=== PATIENT | female | born 1940 | race Caucasian/White ===

== ENCOUNTER 2020-09-13 08:55 | Outpatient (REF) | payer MEDICARE, SELFPAY ==
[2020-09-13 11:50] LABS: Alanine Aminotransferase 14 U/L (0-31); Albumin Level 3.6 g/dL (3.5-5.0); Alkaline Phosphatase 121 U/L (39-117); Anion Gap 13 (12-20); Aspartate Amino Transferase 18 U/L (5-31); Bilirubin Total 0.6 mg/dL (0.0-1.0); Blood Urea Nitrogen 16 mg/dL (9-16); Calcium 8.6 mg/dL (8.4-10.2); Carbon Dioxide 28 mmol/L (22-29); Chloride 106 mmol/L (96-108); Estimated Glomerular Filt Rate > 60; Glucose Random 87 mg/dL (60-115); Potassium 3.9 mmol/l (3.3-5.1); Sodium 143 mmol/L (135-145); Total Protein 6.3 g/dL (6.5-8.0)
[2020-09-13 12:10] LABS: TSH reflex Free T4 0.05 mIU/mL (0.32-4.0)
[2020-09-13 13:02] LABS: Free T4 (Free Thyroxine) 1.39 ng/dL (0.71-1.85)
== END 2020-09-13 08:56 | disposition home or self-care (01) ==
LOC: HO.HMGCLDS 08:55
PROVIDERS: PCP Internal Medicine; Visit Provider Internal Medicine
DX: Z00.01 Encounter for general adult medical examination with abnormal findings (principal); E03.9 Hypothyroidism, unspecified
CPT/HCPCS: 80053; 84439; 84443

== ENCOUNTER → 2020-10-29 09:32 | Outpatient (REF) | payer MEDICARE, SELFPAY ==
--- NOTE | 2020-10-29 09:30 | CA_ITS ---
Transthoracic Echocardiogram Patient (Last, First, Middle): Carissa Martin A Gender: Female Date of : 1940 Age: 80 Procedure Date: 10/29/2020 Procedure Type: Transthoracic Echocardiogram Location: OP Height: 160.02 cm Weight: 68.49 kg BSA: 1.72 m2 Heart Rate: bpm BP: 118 / 58 mmHg Pairer Odds: Referring MD: Jae Arteaga MD Symptoms: R01.1 CARDAC MURMUR Study Quality: Good ECG Rhythm: Sinus Conclusions: - The left ventricular systolic function is normal. The visually estimated ejection fraction is between 60-65%. - There is moderate aortic valve stenosis. Findings Left Ventricle Normal left ventricular cavity size. There is moderately increased left ventricular wall thickness. The left ventricular systolic function is normal. The visually estimated ejection fraction is between 60-65%. There is no evidence of regional wall motion abnormalities. E/E prime ratio is between 8 and 15 consistent with indeterminate filling pressures. Evidence suggests grade I (mild) diastolic dysfunction. Right Ventricle Normal right ventricular cavity size and systolic function. Atria Both atria are normal in size. Aortic Valve There is mild calcification of the aortic valve. There is moderate aortic valve stenosis. The peak aortic velocity is 3.15 m/s with a calculated peak gradient of 40 mmHg. The mean gradient is 24 mmHg. The aortic valve area is 1.38 cm2. There is trace (trivial) aortic valve regurgitation. Mitral Valve The mitral valve appears normal. There is trace mitral valve regurgitation. There is no mitral valve stenosis. Pulmonic Valve The pulmonic valve was not well visualized. Tricuspid Valve Normal tricuspid valve structure. There is mild tricuspid valve regurgitation. The pulmonary artery systolic pressure is normal. Great Vessels The aortic annulus, sinuses of valsalva, and asc aorta are normal in size. Venous The inferior vena cava was not well visualized. Pericardium/Pleural There is no evidence of pericardial effusion. Prior Study Comparison No significant change compared to prior study dated: 01/09/2020. Measurements 2D Linear Measurements IVSd: 1.22 0.6-0.9/0.6-1.0 cm LVIDd: 3.98 3.9-5.3/4.2-5.9 cm LVIDd Index: 2.31 2.4-3.2/2.2-3.1 cm/m2 LVIDs: 2.51 2.0-3.6 cm LVPWd: 1.21 0.7-1.1 cm Ao Root: 3.00 2.1-3.5 cm LA Diam: 4.00 2.7-3.8/3.0-4.0 cm LAIDs Index: 2.33 1.5-2.3 cm/m2 LV Mass: 208.34 67-162/88-224 g LV Mass Index: 121.13 43-95/49-115 g/m2 LVOT Diam: 2.10 3.0+(-)1.3 cm Mitral Valve MV Pk E: 0.99 MV PK A: 0.83 MV Decel Time: 197.00 E/A: 1.20 E'Lateral: 10.90 E'Medial: 5.80 E/E' Med: 17.10 E/E' Lat: 9.10 PHT: 58.00 MVA PHT: 3.79 Decel [place]: 5.04 Aortic Valve AoV Pk Kun: 3.15 AoV Mn Kun: 2.31 AoV VTI: 0.73 AoV Pk Grad: 40.00 Aov Mn Grad: 24.00 EDELMIRA Cont.VTI: 1.38 LVOT LVOT Pk Kun: 1.15 LVOT Mn Kun: 0.79 LVOT VTI: 0.29 LVOT Pk Grad: 5.00 LVOT Mn Grad: 3.00 LVOT Diam: 2.10 LVOT Area: 3.46 Diastolic Function MV Pk E: 0.99 MV Pk A: 0.83 E/A: 1.20 E'Medial: 5.80 E/E' Med: 17.10 E' Laterial: 10.90 E/E' Lat: 9.10 Tricuspid Valve TR Pk Kun: 2.65 TR Pk Grad: 28.00 RA Press: 3.00 RVSP: 31.00 Great Vessels Aorta Ao Root-2D: 3.00 2.0-3.7 cm Ao Asc: 3.10 2.1-3.4 cm Pulmonary Valve PV Pk Kun: 1.41 Peak PV Grad: 8.00 Updated in Other Vendor System with Status of Final Manohar Lawler MD electronically signed on 10/31/2020 9:54:33 AM with status of Final
== END ==
LOC: HO.CARD 09:32
PROVIDERS: PCP Internal Medicine; Visit Provider Internal Medicine
DX: R01.1 Cardiac murmur, unspecified (principal)
CPT/HCPCS: 93306

== ENCOUNTER 2020-12-07 09:35 | Outpatient (REF) | payer MEDICARE, SELFPAY ==
[2020-12-07 11:24] LABS: MANUAL DIFF FLAG NO
[2020-12-07 11:46] LABS: Basophils Absolute Auto 0.1 X10*3/uL (0.0-0.2); Basophils Percent Auto 1.1 % (0-2); Eosinophils Absolute Auto 1.4 X10*3/uL (0.0-0.4); Eosinophils Percent Auto 16.9 % (0-4); Hematocrit 40.3 % (37-47); Hemoglobin 12.7 g/dl (12.0-16.0); Imm Gran Abs Auto 0.03 X10*3/uL (0.00-0.03); Imm Gran Pct Auto 0.4 % (0.0-0.4); Lymphocytes Absolute Auto 2.2 X10*3/uL (1.2-4.9); Mean Corpuscular HGB Conc 31.5 g/dl (31.0-35.0); Mean Corpuscular Hemoglobin 30.5 pg (27.0-33.0); Mean Corpuscular Volume 96.9 fL (80-98); Mean Platelet Volume 11.4 fL (9.4-12.3); Monocytes Absolute Auto 0.8 X10*3/uL (0.1-1.2); Monocytes Percent Auto 9.3 % (2-11); Neutrophils Percent Auto 46.3 % (45-73); Platelet Count 254 X10*3/uL (160-400); Red Blood Count 4.16 X10*6/uL (4.20-5.50); Red Cell Distribution Width 14.7 % (11.0-16.0); White Blood Count 8.5 X10*3/uL (4.8-10.8)
[2020-12-07 12:06] LABS: Anion Gap 13 (12-20); Blood Urea Nitrogen 18 mg/dL (9-16); Calcium 8.5 mg/dL (8.4-10.2); Carbon Dioxide 26 mmol/L (22-29); Chloride 107 mmol/L (96-108); Estimated Glomerular Filt Rate > 60; Glucose Random 90 mg/dL (60-115); Potassium 4.4 mmol/l (3.3-5.1); Sodium 142 mmol/L (135-145)
[2020-12-07 12:10] LABS: TSH reflex Free T4 1.17 mIU/mL (0.32-4.0)
== END 2020-12-07 09:36 | disposition home or self-care (01) ==
LOC: HO.HMGCLDS 09:35
PROVIDERS: PCP Internal Medicine; Visit Provider Internal Medicine
DX: N32.9 Bladder disorder, unspecified (principal); E78.9 Disorder of lipoprotein metabolism, unspecified; R10.13 Epigastric pain; F41.1 Generalized anxiety disorder; F33.2 Major depressive disorder, recurrent severe without psychotic features; E03.8 Other specified hypothyroidism
CPT/HCPCS: 36415; 80048; 84443; 85025

== ENCOUNTER 2021-03-25 08:33 | Outpatient (REF) | payer MEDICARE, SELFPAY ==
[2021-03-25 11:32] LABS: MANUAL DIFF FLAG NO
[2021-03-25 11:59] LABS: Basophils Absolute Auto 0.1 X10*3/uL (0.0-0.2); Eosinophils Absolute Auto 1.1 X10*3/uL (0.0-0.4); Eosinophils Percent Auto 13.8 % (0-4); Hematocrit 39.8 % (37-47); Hemoglobin 12.6 g/dl (12.0-16.0); Imm Gran Abs Auto 0.01 X10*3/uL (0.00-0.03); Imm Gran Pct Auto 0.1 % (0.0-0.4); Lymphocytes Absolute Auto 2.2 X10*3/uL (1.2-4.9); Lymphocytes Percent Auto 26.4 % (20-40); Mean Corpuscular HGB Conc 31.7 g/dl (31.0-35.0); Mean Platelet Volume 11.6 fL (9.4-12.3); Monocytes Absolute Auto 0.9 X10*3/uL (0.1-1.2); Monocytes Percent Auto 11.2 % (2-11); Neutrophils Absolute Auto 3.9 X10*3/uL (2.0-8.3); Neutrophils Percent Auto 47.5 % (45-73); Platelet Count 263 X10*3/uL (160-400); Red Blood Count 4.06 X10*6/uL (4.20-5.50); White Blood Count 8.3 X10*3/uL (4.8-10.8)
[2021-03-25 12:11] LABS: TSH reflex Free T4 0.08 uIU/mL (0.32-4.0)
[2021-03-25 12:14] LABS: Alanine Aminotransferase 11 U/L (0-31); Albumin Level 3.7 g/dL (3.5-5.0); Alkaline Phosphatase 128 U/L (39-117); Anion Gap 14 (12-20); Aspartate Amino Transferase 16 U/L (5-31); Bilirubin Total 0.5 mg/dL (0.0-1.0); Blood Urea Nitrogen 17 mg/dL (9-16); Calcium 9.2 mg/dL (8.4-10.2); Carbon Dioxide 27 mmol/L (22-29); Chloride 108 mmol/L (96-108); Cholesterol 133 mg/dL; Estimated Glomerular Filt Rate > 60; Glucose Fasting 93 mg/dL (60-99); HDL Cholesterol 34 mg/dL; LDL Cholesterol Calculated 73 mg/dl; Potassium 4.8 mmol/L (3.3-5.1); Sodium 144 mmol/L (135-145); Total Protein 6.3 g/dL (6.5-8.0); Triglycerides 131 mg/dL
[2021-03-25 12:57] LABS: Free T4 (Free Thyroxine) 1.29 ng/dL (0.71-1.85)
== END 2021-03-25 08:34 | disposition home or self-care (01) ==
LOC: HO.HMGCLDS 08:33
PROVIDERS: PCP Internal Medicine; Visit Provider Internal Medicine
DX: R10.13 Epigastric pain (principal); E03.9 Hypothyroidism, unspecified; N32.9 Bladder disorder, unspecified; E78.9 Disorder of lipoprotein metabolism, unspecified
CPT/HCPCS: 36415; 80053; 80061; 84439; 84443; 85025

== ENCOUNTER 2021-07-08 08:10 | Outpatient (REF) | payer MEDICARE, SELFPAY ==
[2021-07-08 12:20] LABS: TSH reflex Free T4 0.47 uIU/mL (0.32-4.0)
== END 2021-07-08 08:11 | disposition home or self-care (01) ==
LOC: HO.HMGCLDS 08:10
PROVIDERS: PCP Internal Medicine; Visit Provider Internal Medicine
DX: R94.6 Abnormal results of thyroid function studies (principal)
CPT/HCPCS: 36415; 84443

== ENCOUNTER → 2021-08-18 13:58 | Outpatient (BNVA) | payer MEDICARE, SELFPAY | PROVIDERS: PCP Internal Medicine; Referring Provider Internal Medicine; Visit Provider Internal Medicine | DX: I35.0 Nonrheumatic aortic (valve) stenosis (principal); Z86.73 Personal history of transient ischemic attack (TIA), and cerebral infarction without residual deficits | CPT/HCPCS: 93005; 99202 ==

== ENCOUNTER 2021-08-22 10:05 | Outpatient (REF) | payer MEDICARE, SELFPAY ==
--- NOTE | ~2021-08-22 | US_ITS ---
EXAMINATION: US ABDOMEN COMPLETE CLINICAL INFORMATION: Elevated LFTs. COMPARISON: None TECHNIQUE: Real-time imaging of the abdominal viscera. FINDINGS: PANCREAS: The head of the pancreas is normal. The body and tail are not well visualized ABDOMINAL AORTA: The abdominal aorta is normal in caliber. There is evidence of atherosclerotic disease. INFERIOR VENA CAVA: Visualized portions are normal. LIVER: Normal. The liver is normal in size. The liver contour is normal. Parenchymal echogenicity is normal. No focal hepatic lesion. There is no intrahepatic biliary duct dilatation seen. GALLBLADDER: Surgically absent. COMMON BILE DUCT: Normal in caliber measuring 0.6 cm in diameter. RIGHT KIDNEY: Normal. No hydronephrosis. No renal calculi or focal parenchymal lesions. The kidney measures 9.1 cm in maximum dimension. LEFT KIDNEY: Normal No hydronephrosis. No renal calculi or focal parenchymal lesions. The kidney measures 9.8 cm in maximum dimension. SPLEEN: Normal. The spleen measures 8.6 cm in maximum dimension. FREE FLUID: None. US/US abdomen complete IMPRESSION: Visualization of the pancreas otherwise unremarkable exam.
== END 2021-08-22 10:06 | disposition home or self-care (01) ==
LOC: HO.HMGCX 10:05
PROVIDERS: PCP Internal Medicine; Visit Provider Internal Medicine
DX: R79.89 Other specified abnormal findings of blood chemistry (principal)
CPT/HCPCS: 76700

== ENCOUNTER → 2021-09-28 12:52 | Outpatient (REF) | payer MEDICARE, SELFPAY ==
--- NOTE | 2021-09-28 12:55 | CA_ITS ---
Transthoracic Echocardiogram Patient (Last, First, Middle): Carissa Martin A Gender: Female Date of : 1940 Age: 81 Procedure Date: 09/28/2021 Procedure Type: Transthoracic Echocardiogram Location: OP Height: 160.02 cm Weight: 60.78 kg BSA: 1.63 m2 Heart Rate: bpm BP: 120 / 70 mmHg Sheet Rock Finisher: YR/CP Referring MD: Manohar Lawler MD Symptoms: I35.0 - Nonrheumatic aortic (valve) stenosis Study Quality: Good ECG Rhythm: Sinus Conclusions: - The left ventricular systolic function is normal. The visually estimated ejection fraction is between 60-65%. - There is moderate aortic valve stenosis. - There is mild mitral annular calcification. - Small plaque is seen in the sino tubular ridge. Findings Left Ventricle Normal left ventricular cavity size. The left ventricular systolic function is normal. The visually estimated ejection fraction is between 60-65%. There is no evidence of regional wall motion abnormalities. Diastolic function is normal for age. There is mild septal and mild basal asymmetric hypertrophy. Right Ventricle Normal right ventricular cavity size and systolic function. Atria The left atrium is normal in size. The right atrium is normal in size. Aortic Valve There is moderate calcification of the aortic valve. There is moderate aortic valve stenosis. The peak aortic velocity is 3.85 m/s with a calculated peak gradient of 59 mmHg. The mean gradient is 35 mmHg. The aortic valve area is 1.06 cm2. There is mild aortic valve regurgitation. Mitral Valve The mitral valve appears normal. There is mild mitral annular calcification. There is trace mitral valve regurgitation. There is no mitral valve stenosis. Pulmonic Valve The pulmonic valve was not well visualized. Tricuspid Valve Normal tricuspid valve structure. There is mild tricuspid valve regurgitation. The pulmonary artery systolic pressure is normal. Great Vessels The asc aorta is normal in size. Small plaque is seen in the sino tubular ridge. Venous The inferior vena cava is normal in size and collapses greater than 50% with inspiration. Pericardium/Pleural There is no evidence of pericardial effusion. Prior Study Comparison Changes noted compared to prior study dated: 10/29/2020. Progression of aortic valve stenosis, but still in moderate range. Measurements 2D Linear Measurements IVSd: 1.05 0.6-0.9/0.6-1.0 cm LVIDd: 3.56 3.9-5.3/4.2-5.9 cm LVIDd Index: 2.18 2.4-3.2/2.2-3.1 cm/m2 LVIDs: 2.04 2.0-3.6 cm LVPWd: 0.63 0.7-1.1 cm Ao Root: 3.30 2.1-3.5 cm LA Diam: 3.50 2.7-3.8/3.0-4.0 cm LAIDs Index: 2.15 1.5-2.3 cm/m2 LV Mass: 102.37 67-162/88-224 g LV Mass Index: 62.80 43-95/49-115 g/m2 LVOT Diam: 2.10 3.0+(-)1.3 cm 2D Systolic Function EF 4C: 60.40 >55% EF 2C: 58.10 >55% EF BiP: 57.30 >55% Mitral Valve MV Pk E: 0.88 MV PK A: 0.59 MV Decel Time: 234.00 E/A: 1.50 E'Lateral: 6.64 E'Medial: 5.66 E/E' Med: 15.60 E/E' Lat: 13.30 PHT: 69.00 MVA PHT: 3.19 Decel [place]: 3.77 Aortic Valve AoV Pk Kun: 3.85 AoV Mn Kun: 2.81 AoV VTI: 0.96 AoV Pk Grad: 59.00 Aov Mn Grad: 35.00 EDELMIRA Cont.VTI: 1.06 AI Pk Kun: 4.06 AI [place]: 2.32 LVOT LVOT Pk Kun: 1.01 LVOT Mn Kun: 0.70 LVOT VTI: 0.29 LVOT Pk Grad: 4.00 LVOT Mn Grad: 2.00 LVOT Diam: 2.10 LVOT Area: 3.46 Diastolic Function MV Pk E: 0.88 MV Pk A: 0.59 E/A: 1.50 E'Medial: 5.66 E/E' Med: 15.60 E' Laterial: 6.64 E/E' Lat: 13.30 Right Ventricle TAPSE (mm): 1.72 TVS' Kun: 15.20 Tricuspid Valve TR Pk Kun: 2.69 TR Pk Grad: 29.00 RA Press: 3.00 RVSP: 32.00 Great Vessels Aorta Ao Root-2D: 3.30 2.0-3.7 cm Ao Asc: 3.10 2.1-3.4 cm Ao Arch: 2.50 Updated in Other Vendor System with Status of Final Manohar Lawler MD electronically signed on 09/29/2021 1:10:52 PM with status of Final
== END ==
LOC: HO.CARD 12:52
PROVIDERS: Visit Provider Internal Medicine
DX: I35.0 Nonrheumatic aortic (valve) stenosis (principal)
CPT/HCPCS: 93306

== ENCOUNTER → 2021-09-29 13:40 | Outpatient (BNVA) | payer MEDICARE, SELFPAY | PROVIDERS: PCP Internal Medicine; Referring Provider Internal Medicine; Visit Provider Internal Medicine | DX: I35.0 Nonrheumatic aortic (valve) stenosis (principal); I63.9 Cerebral infarction, unspecified | CPT/HCPCS: 99212 ==

== ENCOUNTER 2021-11-23 08:36 | Outpatient (REF) | payer MEDICARE, SELFPAY ==
--- NOTE | ~2021-11-23 | XR_ITS ---
EXAMINATION: XR SACRUM AND COCCYX CLINICAL INFORMATION: Sacral pain COMPARISON: None TECHNIQUE: 3 views of the sacrum and coccyx FINDINGS: Patient is status post bilateral pelvic surgery. There is significant degenerative disc disease seen L4-S1 bilaterally. No acute fracture of the sacrum or coccyx is identified. There is osteopenia visualized bones. Sacroiliac joints appear unremarkable. XR/XR sacrum coccyx min 2V IMPRESSION: Degenerative disc disease lower lumbar spine. Osteopenia without definite sacrococcygeal fracture or destructive lesion identified.
[2021-11-23 11:50] LABS: Alanine Aminotransferase 21 U/L (0-31); Albumin Level 3.8 g/dL (3.5-5.0); Alkaline Phosphatase 111 U/L (39-117); Anion Gap 11 (12-20); Aspartate Amino Transferase 23 U/L (5-31); Bilirubin Total 0.5 mg/dL (0.0-1.0); Blood Urea Nitrogen 16 mg/dL (9-16); Calcium 9.3 mg/dL (8.4-10.2); Carbon Dioxide 30 mmol/L (22-29); Chloride 108 mmol/L (96-108); Cholesterol 143 mg/dL; Estimated Glomerular Filt Rate 57; Glucose Fasting 81 mg/dL (60-99); HDL Cholesterol 48 mg/dL; LDL Cholesterol Calculated 75 mg/dl; Potassium 4.6 mmol/L (3.3-5.1); Sodium 144 mmol/L (135-145); Total Protein 6.5 g/dL (6.5-8.0); Triglycerides 100 mg/dL
[2021-11-23 12:12] LABS: TSH reflex Free T4 12.66 uIU/mL (0.32-4.0)
[2021-11-23 12:31] LABS: Vitamin B12 446 pg/mL (200-900)
[2021-11-23 12:46] LABS: Free T4 (Free Thyroxine) 0.89 ng/dL (0.71-1.85)
== END 2021-11-23 08:37 | disposition home or self-care (01) ==
LOC: HO.HMGCLDS 08:36
PROVIDERS: PCP Internal Medicine; Visit Provider Internal Medicine
DX: R10.13 Epigastric pain (principal); E03.8 Other specified hypothyroidism; E78.9 Disorder of lipoprotein metabolism, unspecified; F33.2 Major depressive disorder, recurrent severe without psychotic features; F41.1 Generalized anxiety disorder; N32.9 Bladder disorder, unspecified; M53.3 Sacrococcygeal disorders, not elsewhere classified
CPT/HCPCS: 36415; 72220; 80053; 80061; 82607; 84439; 84443

== ENCOUNTER 2021-12-30 13:01 | Outpatient (REF) | payer MEDICARE, SELFPAY ==
--- NOTE | ~2021-12-30 | XR_ITS ---
EXAMINATION: XR ANKLE, LEFT CLINICAL INFORMATION: Ankle sprain COMPARISON: None TECHNIQUE: AP, lateral, and mortise views of the left ankle. FINDINGS: The bones and soft tissues are normal. No fracture. Alignment is anatomic. Joint spaces are maintained. No joint effusion. The talar dome and ankle mortise are intact. XR/XR ankle LT min 3V IMPRESSION: No evidence of acute fracture or subluxation of the left ankle.
== END 2021-12-30 13:02 | disposition home or self-care (01) ==
LOC: HO.HMGCLDS 13:01
PROVIDERS: Visit Provider Internal Medicine
DX: S93.402A Sprain of unspecified ligament of left ankle, initial encounter (principal); X58.XXXA Exposure to other specified factors, initial encounter; Y93.9 Activity, unspecified; Y92.9 Unspecified place or not applicable; Y99.8 Other external cause status
CPT/HCPCS: 73610

== ENCOUNTER 2022-01-02 10:01 | Outpatient (REF) | payer MEDICARE, SELFPAY ==
[2022-01-02 12:22] LABS: TSH reflex Free T4 0.31 uIU/mL (0.32-4.0)
[2022-01-02 13:12] LABS: Free T4 (Free Thyroxine) 0.98 ng/dL (0.71-1.85)
== END 2022-01-02 10:02 | disposition home or self-care (01) ==
LOC: HO.HMGCLDS 10:01
PROVIDERS: PCP Internal Medicine; Visit Provider Internal Medicine
DX: R94.6 Abnormal results of thyroid function studies (principal)
CPT/HCPCS: 36415; 84439; 84443

== ENCOUNTER 2022-02-23 08:42 | Outpatient (REF) | payer MEDICARE, SELFPAY ==
[2022-02-23 11:35] LABS: Appearance Urine CLEAR; Color Urine YELLOW; Glucose Urine UA NEG (NEG); Leukocyte Esterase Urine TRACE (NEG); Nitrite Urine NEG (NEG); UACC Culture Trigger YES; Urine Blood NEG (NEG); Urine Ketones NEG (NEG); Urine Protein NEG (NEG-TRACE)
[2022-02-23 11:57] LABS: Calcium Oxalate Crystals Urine 1+ /LPF
[2022-02-23 11:58] LABS: Mucus Urine 1+ /LPF; RBC Urine 0 /HPF (0); Squamous Epithelial Cell Urine 1+ /LPF
== END 2022-02-23 08:43 | disposition home or self-care (01) ==
LOC: HO.HMGCLNP 08:42
PROVIDERS: Visit Provider Internal Medicine
DX: M54.9 Dorsalgia, unspecified (principal)
CPT/HCPCS: 81001; 87086

== ENCOUNTER 2022-03-17 08:55 | Outpatient (REF) | payer MEDICARE, SELFPAY ==
[2022-03-17 11:16] LABS: Appearance Urine CLEAR; Color Urine YELLOW; Glucose Urine UA NEG (NEG); Leukocyte Esterase Urine NEG (NEG); Nitrite Urine NEG (NEG); Specific Gravity - Urine 1.015 (1.005-1.025); Urine Blood NEG (NEG); Urine Ketones NEG (NEG); Urine Protein NEG (NEG-TRACE)
[2022-03-17 12:11] LABS: TSH reflex Free T4 0.69 uIU/mL (0.32-4.0)
== END 2022-03-17 08:56 | disposition home or self-care (01) ==
LOC: HO.HMGCLDS 08:55
PROVIDERS: PCP Internal Medicine; Visit Provider Internal Medicine
DX: M54.9 Dorsalgia, unspecified (principal); E03.9 Hypothyroidism, unspecified
CPT/HCPCS: 36415; 81003; 84443

== ENCOUNTER 2022-03-21 11:29 | Outpatient (REF) | payer MEDICARE, SELFPAY ==
[2022-03-21 13:43] LABS: MANUAL DIFF FLAG NO
[2022-03-21 13:49] LABS: Basophils Absolute Auto 0.1 X10*3/uL (0.0-0.2); Eosinophils Absolute Auto 0.7 X10*3/uL (0.0-0.4); Eosinophils Percent Auto 10.1 % (0-4); Hematocrit 37.7 % (37.0-47.0); Hemoglobin 11.9 g/dl (12.0-16.0); Imm Gran Abs Auto 0.02 X10*3/uL (0.00-0.03); Imm Gran Pct Auto 0.3 % (0.0-0.4); Lymphocytes Absolute Auto 1.8 X10*3/uL (1.2-4.9); Lymphocytes Percent Auto 25.5 % (20-40); Mean Corpuscular HGB Conc 31.6 g/dl (31.0-35.0); Mean Corpuscular Hemoglobin 30.7 pg (27.0-33.0); Mean Corpuscular Volume 97.2 fL (80.0-98.0); Mean Platelet Volume 11.4 fL (9.4-12.3); Monocytes Absolute Auto 0.6 X10*3/uL (0.1-1.2); Monocytes Percent Auto 8.7 % (2-11); Neutrophils Absolute Auto 3.9 x10*3/uL (2.0-8.3); Neutrophils Percent Auto 54.4 % (45-73); Platelet Count 236 X10*3/uL (160-400); Red Blood Count 3.88 X10*6/uL (4.20-5.50); Red Cell Distribution Width 14.3 % (11.0-16.0); White Blood Count 7.1 X10*3/uL (4.8-10.8)
[2022-03-21 13:51] LABS: Appearance Urine HAZY; Color Urine YELLOW; Glucose Urine UA NEG (NEG); Leukocyte Esterase Urine TRACE (NEG); Nitrite Urine NEG (NEG); PH 5.5 (5.0-8.0); UACC Culture Trigger NO; Urine Blood 3+ (NEG); Urine Ketones NEG (NEG); Urine Protein NEG (NEG-TRACE)
[2022-03-21 14:04] LABS: Alanine Aminotransferase 18 U/L (0-31); Albumin Level 3.5 g/dL (3.5-5.0); Alkaline Phosphatase 96 U/L (39-117); Anion Gap 9 (12-20); Aspartate Amino Transferase 24 U/L (5-31); Bilirubin Total 0.5 mg/dL (0.0-1.0); Blood Urea Nitrogen 15 mg/dL (9-16); Calcium 9.1 mg/dL (8.4-10.2); Carbon Dioxide 29 mmol/L (22-29); Chloride 107 mmol/L (96-108); Estimated Glomerular Filt Rate > 60; Glucose Random 94 mg/dL (60-115); Potassium 3.9 mmol/L (3.3-5.1); Sodium 141 mmol/L (135-145)
[2022-03-21 14:21] LABS: TSH reflex Free T4 0.49 uIU/mL (0.32-4.0)
[2022-03-21 14:23] LABS: Squamous Epithelial Cell Urine 2+ /LPF; WBC Urine 0-2 /HPF (0-4)
== END 2022-03-21 11:30 | disposition home or self-care (01) ==
LOC: HO.HMGCLDS 11:29
PROVIDERS: Visit Provider Internal Medicine
DX: R26.81 Unsteadiness on feet (principal); R42 Dizziness and giddiness; E03.9 Hypothyroidism, unspecified; Z91.81 History of falling
CPT/HCPCS: 36415; 80053; 81001; 84443; 85025

== ENCOUNTER → 2022-03-29 08:24 | Outpatient (REF) | payer MEDICARE, SELFPAY ==
--- NOTE | 2022-03-29 08:29 | CA_ITS ---
Transthoracic Echocardiogram Patient (Last, First, Middle): Carissa Martin A Gender: Female Date of : 1940 Age: 82 Procedure Date: 03/29/2022 Procedure Type: Transthoracic Echocardiogram Location: OP Height: 157.48 cm Weight: 56.7 kg BSA: 1.57 m2 Heart Rate: bpm BP: 122 / 70 mmHg Aerospace Technician: Referring MD: Manohar Lawler MD Customer Support Professional: Gerald Molina MD Symptoms: I35.0 - Nonrheumatic aortic (valve) stenosis Study Quality: Fair ECG Rhythm: Sinus Conclusions: - 1. Normal LV systolic function with pseudonormal filling pattern 2. Moderate aortic stenosis 3. Mild left atrial enlargement 4. Normal RV systolic pressure 5. No pericardial effusion Findings Left Ventricle Normal left ventricular size, thickness, and systolic function. The visually estimated ejection fraction is between 60-65%. Spectral Doppler is indicative of a pseudonormal filling pattern. E/E prime ratio is between 8 and 15 consistent with indeterminate filling pressures. Right Ventricle Normal right ventricular cavity size and systolic function. Atria The left atrium is mildly dilated. There is no evidence of interatrial shunt. The right atrium is normal in size. Aortic Valve There is moderate calcification of the aortic valve. There is mild thickening of the aortic valve. There is moderate aortic valve stenosis. The peak aortic gradient is 52 mmHg.The mean gradient is 29 mmHg. The aortic valve area is 1.42 cm2. There is mild aortic valve regurgitation. Mitral Valve There is mild anterior and posterior mitral leaflet thickening. There is trace mitral valve regurgitation. There is no mitral valve stenosis. Pulmonic Valve The pulmonic valve was not well visualized. Tricuspid Valve Likely normal tricuspid valve structure and function. There is mild tricuspid valve regurgitation. The right ventricular systolic pressure is normal. The right ventricular systolic pressure is 36 mmHg. Normal right atrial pressure. There is no evidence of pulmonary hypertension. Great Vessels All visible segments of the aorta are normal in size. The pulmonary artery was not well visualized. Venous The inferior vena cava is normal in size and collapses greater than 50% with inspiration. Pericardium/Pleural There is no evidence of pericardial effusion. Prior Study Comparison No significant change compared to prior study dated: 09/28/2022. Measurements 2D Linear Measurements IVSd: 1.03 0.6-0.9/0.6-1.0 cm LVIDd: 4.19 3.9-5.3/4.2-5.9 cm LVIDd Index: 2.67 2.4-3.2/2.2-3.1 cm/m2 LVIDs: 2.47 2.0-3.6 cm LVPWd: 1.03 0.7-1.1 cm Ao Root: 2.90 2.1-3.5 cm LA Diam: 4.10 2.7-3.8/3.0-4.0 cm LAIDs Index: 2.61 1.5-2.3 cm/m2 LV Mass: 177.40 67-162/88-224 g LV Mass Index: 113.00 43-95/49-115 g/m2 LVOT Diam: 2.20 3.0+(-)1.3 cm Mitral Valve MV Pk E: 0.97 MV PK A: 0.62 MV Decel Time: 260.00 E/A: 1.60 E'Lateral: 7.72 E'Medial: 6.42 E/E' Med: 15.20 E/E' Lat: 12.60 PHT: 76.00 MVA PHT: 2.89 Decel [place]: 3.74 Aortic Valve AoV Pk Kun: 3.60 AoV Mn Kun: 2.55 AoV VTI: 0.89 AoV Pk Grad: 52.00 Aov Mn Grad: 29.00 EDELMIRA Cont.VTI: 1.42 AI Pk Kun: 4.33 AI [place]: 3.50 LVOT LVOT Pk Kun: 1.29 LVOT Mn Kun: 0.94 LVOT VTI: 0.33 LVOT Pk Grad: 7.00 LVOT Mn Grad: 4.00 LVOT Diam: 2.20 LVOT Area: 3.80 Diastolic Function MV Pk E: 0.97 MV Pk A: 0.62 E/A: 1.60 E'Medial: 6.42 E/E' Med: 15.20 E' Laterial: 7.72 E/E' Lat: 12.60 Tricuspid Valve TR Pk Kun: 2.88 TR Pk Grad: 33.00 RA Press: 3.00 RVSP: 36.00 Great Vessels Aorta Ao Root-2D: 2.90 2.0-3.7 cm Ao Asc: 3.10 2.1-3.4 cm Pulmonary Valve PV Pk Kun: 0.71 Peak PV Grad: 2.00 Updated in Other Vendor System with Status of Final Gerald Molina MD electronically signed on 03/30/2022 3:18:24 PM with status of Final
== END ==
LOC: HO.CARD 08:24
PROVIDERS: PCP Internal Medicine; Visit Provider Internal Medicine
DX: I35.0 Nonrheumatic aortic (valve) stenosis (principal)
CPT/HCPCS: 93306

== ENCOUNTER → 2022-04-03 14:55 | Outpatient (BNVA) | payer MEDICARE, SELFPAY | PROVIDERS: PCP Internal Medicine; Referring Provider Internal Medicine; Visit Provider Internal Medicine | DX: I35.0 Nonrheumatic aortic (valve) stenosis (principal); I63.9 Cerebral infarction, unspecified | CPT/HCPCS: 99212 ==

== ENCOUNTER 2022-06-01 14:27 | Outpatient (REF) | payer MEDICARE, SELFPAY ==
--- NOTE | ~2022-06-01 | XR_ITS ---
EXAMINATION: XR FOOT, RIGHT CLINICAL INFORMATION: Pain COMPARISON: None TECHNIQUE: AP, lateral, and oblique views of the right foot. FINDINGS: Acute intra-articular obliquely oriented avulsion fracture of the base of the fifth metatarsal. Hallux valgus deformity with moderate degenerative changes of the first metatarsophalangeal joint. Plantar calcaneal spurring. Soft tissues are unremarkable. XR/XR foot RT min 3V IMPRESSION: * Acute intra-articular obliquely oriented avulsion fracture of the base of the fifth metatarsal. * Degenerative changes of the foot as detailed above with hallux valgus deformity and moderate degenerative changes of the first metatarsophalangeal joint.
== END 2022-06-01 14:28 | disposition home or self-care (01) ==
LOC: HO.HMGCX 14:27
PROVIDERS: PCP Internal Medicine
DX: M79.671 Pain in right foot (principal)
CPT/HCPCS: 73630

== ENCOUNTER → 2022-06-08 10:26 | Outpatient (BNVA) | payer MEDICARE, SELFPAY | PROVIDERS: PCP Internal Medicine; Visit Provider Physician Assistant | DX: S92.351A Displaced fracture of fifth metatarsal bone, right foot, initial encounter for closed fracture (principal) | CPT/HCPCS: 99202 ==

== ENCOUNTER 2022-07-05 15:18 | Outpatient (REF) | payer MEDICARE, SELFPAY ==
--- NOTE | ~2022-07-05 | XR_ITS ---
EXAMINATION: XR FOOT, RIGHT CLINICAL INFORMATION: Displaced fracture fifth metatarsal bone COMPARISON: None TECHNIQUE: AP, lateral, and oblique views of the right foot. FINDINGS: There is moderate hallux valgus deformity first MTP joint with mild subluxation. There is minimally displaced fracture base of fifth metatarsal. It was nondisplaced on the previous exam. No callus formation seen. No new fracture seen. The ankle mortise and subtalar joints are normal. There is a small calcaneal heel enthesophyte. XR/XR foot RT min 3V IMPRESSION: Slightly displaced fracture base of fifth metacarpal. There is no callus formation seen. Small calcaneal heel enthesophyte.
== END 2022-07-05 15:19 | disposition home or self-care (01) ==
LOC: HO.HOSX 15:18
PROVIDERS: Visit Provider Physician Assistant
DX: S92.351A Displaced fracture of fifth metatarsal bone, right foot, initial encounter for closed fracture (principal)
CPT/HCPCS: 73630

== ENCOUNTER → 2022-08-16 13:47 | Outpatient (REF) | payer MEDICARE, SELFPAY ==
--- NOTE | 2022-08-16 13:53 | CA_ITS ---
Transthoracic Echocardiogram Patient (Last, First, Middle): Carissa Martin A Gender: Female Date of : 1940 Age: 82 Procedure Date: 08/16/2022 Procedure Type: Transthoracic Echocardiogram Location: OP Height: 160.02 cm Weight: 56.7 kg BSA: 1.58 m2 Heart Rate: 68 bpm BP: 110 / 70 mmHg Supervisor Decorating: TO Referring MD: Manohar Lawler MD Elastic Attacher Zigzag: Gerald Molina MD Symptoms: I35.0 - Nonrheumatic aortic (valve) stenosis Study Quality: Fair ECG Rhythm: Sinus Conclusions: - 1. Normal LV systolic function with grade 2 diastolic dysfunction 2. Severe aortic stenosis, paradoxical low-flow aortic stenosis with mean gradient of 33 mmHg and dimensionless index of 0.22 3. Moderate left atrial enlargement 4. Normal RV systolic pressure 5. No gross pericardial effusion Findings Left Ventricle Normal left ventricular size, thickness, and systolic function. The visually estimated ejection fraction is between 60-65%. Spectral Doppler is indicative of a pseudonormal filling pattern. Elevated left atrial and left ventricular end-diastolic pressures. E/E prime ratio is >15, consistent with elevated filling pressures. Evidence suggests grade II (moderate) diastolic dysfunction. Right Ventricle Normal right ventricular cavity size and systolic function. Atria The left atrium is moderately dilated. There is no evidence of interatrial shunt. The right atrium is likely dilated. Aortic Valve There is moderate calcification of the aortic valve. There is mild thickening of the aortic valve. There is severe aortic valve stenosis. The peak aortic gradient is 58 mmHg.The mean gradient is 31 mmHg. The aortic valve area is 0.70 cm2. There is mild aortic valve regurgitation. Calculated dimensionless index is 0.22 consistent with severe aortic stenosis. Overall findings consistent with paradoxical low-flow aortic stenosis Mitral Valve There is mild anterior and posterior mitral leaflet thickening. There is mild mitral valve regurgitation. Pulmonic Valve The pulmonic valve was not well visualized. Tricuspid Valve Likely normal tricuspid valve structure and function. There is mild tricuspid valve regurgitation. The right ventricular systolic pressure is normal. The right ventricular systolic pressure is 31 mmHg. There is no evidence of pulmonary hypertension. Great Vessels All visible segments of the aorta are normal in size. The pulmonary artery was not well visualized. Venous The inferior vena cava is normal in size and collapses greater than 50% with inspiration. Pericardium/Pleural There is no evidence of pericardial effusion. Prior Study Comparison Changes noted compared to prior study dated: 03/29/2022. aortic stenosis is severe Measurements 2D Linear Measurements IVSd: 0.96 0.6-0.9/0.6-1.0 cm LVIDd: 4.37 3.9-5.3/4.2-5.9 cm LVIDd Index: 2.77 2.4-3.2/2.2-3.1 cm/m2 LVIDs: 2.58 2.0-3.6 cm LVPWd: 0.89 0.7-1.1 cm LA Diam: 3.70 2.7-3.8/3.0-4.0 cm LAIDs Index: 2.34 1.5-2.3 cm/m2 LV Mass: 163.72 67-162/88-224 g LV Mass Index: 103.62 43-95/49-115 g/m2 LVOT Diam: 2.00 3.0+(-)1.3 cm 2D Systolic Function EF 4C: 61.40 >55% EF 2C: 68.80 >55% EF BiP: 66.50 >55% Mitral Valve MV Pk E: 0.94 MV PK A: 0.37 MV Decel Time: 238.00 E/A: 2.50 E'Lateral: 8.59 E'Medial: 4.79 E/E' Med: 19.60 E/E' Lat: 10.90 PHT: 70.00 MVA PHT: 3.14 Decel [place]: 3.94 Aortic Valve AoV Pk Kun: 3.80 AoV Mn Kun: 2.58 AoV VTI: 0.98 AoV Pk Grad: 58.00 Aov Mn Grad: 31.00 EDELMIRA Cont.VTI: 0.70 AI Pk Kun: 3.89 AI [place]: 2.46 LVOT LVOT Pk Kun: 0.74 LVOT Mn Kun: 0.51 LVOT VTI: 0.22 LVOT Pk Grad: 2.00 LVOT Mn Grad: 1.00 LVOT Diam: 2.00 LVOT Area: 3.14 Diastolic Function MV Pk E: 0.94 MV Pk A: 0.37 E/A: 2.50 E'Medial: 4.79 E/E' Med: 19.60 E' Laterial: 8.59 E/E' Lat: 10.90 Right Ventricle TAPSE (mm): 22.20 TVS' Kun: 11.20 Tricuspid Valve TR Pk Kun: 2.64 TR Pk Grad: 28.00 RA Press: 3.00 RVSP: 31.00 Great Vessels Aorta Sinus of Valsalva: 3.18 2.0-3.[address] [place]: 2.34 1.7-3.4 cm Ao Asc: 2.90 2.1-3.4 cm Updated in Other Vendor System with Status of Final Gerald Molina MD electronically signed on 08/16/2022 4:23:42 PM with status of Final
== END ==
LOC: HO.CARD 13:47
PROVIDERS: Visit Provider Internal Medicine
DX: I35.0 Nonrheumatic aortic (valve) stenosis (principal)
CPT/HCPCS: 93306

== ENCOUNTER 2022-08-24 11:03 | Outpatient (REF) | payer MEDICARE, SELFPAY ==
--- NOTE | ~2022-08-24 | MM_ITS ---
EXAMINATION: BONE DENSITOMETRY CLINICAL INDICATION: Asymptomatic menopausal state. COMPARISON: Previous BD dated 01/09/2020 and baseline BD dated 05/07/2012. TECHNIQUE: Using a [employer] DXA System (software version: 13.1) manufactured by [employer], dual-energy x-ray absorptiometry was performed of the lumbar spine and left hip. The images are of good technical quality. Summary results are attached. FINDINGS: AP SPINE L1-L3 (excluding L4): The data of L1-L4 has been changed to exclude the L4 vertebral body, because degenerative changes at this level may cause overestimation of lumbar spine density. Current: BMD 1.118 g/cm2, Z-score 1.8, T-score -0.4, normal, 6.2% decrease from previous, 15.5% decrease from baseline (<5% change is not significant). Prior: BMD 1.192 g/cm2. Baseline: BMD 1.323 g/cm2. LEFT FEMUR, NECK: Current: BMD 0.721 g/cm2, Z-score 0.2, T-score -2.3, osteopenia. Prior: BMD 0.782 g/cm2. Baseline: BMD 0.913 g/cm2. LEFT FEMUR, TOTAL: Current: BMD 0.787 g/cm2, Z-score 0.6, T-score -1.7, osteopenia, 12.2% decrease from previous, 25.1% decrease from baseline (<5% change is not significant). Prior: BMD 0.896 g/cm2. Baseline: BMD 1.051 g/cm2. IDENTIFIED RISK FACTORS: Menopause, hysterectomy, bilateral oophorectomy. HISTORY OF FRACTURE: None listed. MEDICATIONS: Calcium/multivitamin. MM/XR DEXA axial skeleton IMPRESSION: 1. DIAGNOSIS: Osteopenia based on the lowest T-score value of -2.3 in the femoral neck applying World Health Organization criteria. 2. 10-YEAR FRACTURE RISK PREDICTION, FRAX: Major osteoporotic fracture (clinical spine, forearm, hip or shoulder) 16.4%. Hip fracture 5.8%. 3. Treatment Recommendations: NOF guidelines recommend consideration for treatment in postmenopausal women and men age 50 and older presenting with the following: -A hip or vertebral (clinical or morphometric) fracture. -T-score less than or equal to -2.5 at the femoral neck or spine after appropriate evaluation to exclude secondary causes. -Low bone mass at the hip or spine and a 10-year fracture probability by FRAX of greater than or equal to 3% for hip fracture or greater than or equal to 20% for major osteoporotic fracture based on the [place] adapted WHO algorithm. 4. Other Recommendations: All treatment decisions require clinical judgment and consideration of individual patient factors, including patient preferences, comorbidities, previous drug use, risk factors not captured in the FRAX model (e.g. frailty, falls, vitamin D deficiency, increased bone turnover, interval significant decline in bone density) and possible under or overestimation of fracture risk by FRAX. Additional medical evaluation for secondary cause of low bone mineral density may be appropriate. FUTURE SCAN RECOMMENDATION: People with diagnosed cases of osteoporosis or at high risk for fracture should have regular bone mineral density tests. For patients eligible for Medicare, routine testing is allowed once every 2 years. The testing frequency can be increased to one year for patients who have rapidly progressing disease, those who are receiving or discontinuing medical therapy to restore bone mass, or have additional risk factors.
== END 2022-08-24 11:04 | disposition home or self-care (01) ==
LOC: HO.MAMMO 11:03
PROVIDERS: Visit Provider Internal Medicine
DX: Z13.820 Encounter for screening for osteoporosis (principal); Z78.0 Asymptomatic menopausal state
CPT/HCPCS: 77080

== ENCOUNTER → 2022-10-09 12:44 | Outpatient (BNVA) | payer MEDICARE, SELFPAY | PROVIDERS: PCP Internal Medicine; Referring Provider Internal Medicine; Visit Provider Internal Medicine | DX: I35.0 Nonrheumatic aortic (valve) stenosis (principal); I63.9 Cerebral infarction, unspecified | CPT/HCPCS: 93005; 99212 ==

== ENCOUNTER 2022-12-08 08:38 | Outpatient (REF) | payer MEDICARE, SELFPAY ==
[2022-12-08 11:23] LABS: MANUAL DIFF FLAG NO
[2022-12-08 11:29] LABS: Basophils Absolute Auto 0.1 X10*3/uL (0.0-0.2); Basophils Percent Auto 1.2 % (0-2); Eosinophils Absolute Auto 1.2 X10*3/uL (0.0-0.4); Hematocrit 37.1 % (37.0-47.0); Hemoglobin 11.8 g/dl (12.0-16.0); Imm Gran Abs Auto 0.02 X10*3/uL (0.00-0.03); Imm Gran Pct Auto 0.3 % (0.0-0.4); Lymphocytes Absolute Auto 2.1 X10*3/uL (1.2-4.9); Lymphocytes Percent Auto 27.8 % (20-40); Mean Corpuscular HGB Conc 31.8 g/dl (31.0-35.0); Mean Corpuscular Hemoglobin 31.1 pg (27.0-33.0); Mean Corpuscular Volume 97.6 fL (80.0-98.0); Mean Platelet Volume 11.1 fL (9.4-12.3); Monocytes Absolute Auto 0.8 X10*3/uL (0.1-1.2); Monocytes Percent Auto 10.2 % (2-11); Neutrophils Absolute Auto 3.3 x10*3/uL (2.0-8.3); Neutrophils Percent Auto 44.5 % (45-73); Platelet Count 222 X10*3/uL (160-400); Red Cell Distribution Width 14.6 % (11.0-16.0); White Blood Count 7.4 X10*3/uL (4.8-10.8)
[2022-12-08 13:00] LABS: Alanine Aminotransferase 17 U/L (0-31); Albumin Level 3.6 g/dL (3.5-5.0); Alkaline Phosphatase 107 U/L (39-117); Anion Gap 12 (12-20); Aspartate Amino Transferase 22 U/L (5-31); Bilirubin Total 0.4 mg/dL (0.0-1.0); Blood Urea Nitrogen 17 mg/dL (9-16); Calcium 8.9 mg/dL (8.4-10.2); Carbon Dioxide 28 mmol/L (22-29); Chloride 107 mmol/L (96-108); Estimated Glomerular Filt Rate > 60; Glucose Fasting 87 mg/dL (60-99); Sodium 143 mmol/L (135-145); Total Protein 6.1 g/dL (6.5-8.0)
[2022-12-08 13:17] LABS: TSH reflex Free T4 4.64 uIU/mL (0.32-4.0)
[2022-12-08 13:57] LABS: Free T4 (Free Thyroxine) 0.97 ng/dL (0.71-1.85)
== END 2022-12-08 08:39 | disposition home or self-care (01) ==
LOC: HO.HMGCLDS 08:38
PROVIDERS: PCP Internal Medicine; Visit Provider Internal Medicine
DX: E03.9 Hypothyroidism, unspecified (principal); E78.9 Disorder of lipoprotein metabolism, unspecified; F33.2 Major depressive disorder, recurrent severe without psychotic features; F41.1 Generalized anxiety disorder; I35.0 Nonrheumatic aortic (valve) stenosis; N32.9 Bladder disorder, unspecified; R10.13 Epigastric pain; R42 Dizziness and giddiness
CPT/HCPCS: 36415; 80053; 84439; 84443; 85025

== ENCOUNTER → 2023-03-22 10:50 | Outpatient (REF) | payer MEDICARE, SELFPAY ==
--- NOTE | 2023-03-22 10:52 | CA_ITS ---
Transthoracic Echocardiogram Patient (Last, First, Middle): Carissa Martin A Gender: Female Date of : 1940 Age: 83 Procedure Date: 03/22/2023 Procedure Type: Transthoracic Echocardiogram Location: OP Height: 157.48 cm Weight: 56.25 kg BSA: 1.56 m2 Heart Rate: 67 bpm BP: 120 / 70 mmHg Counter Waitress/Waiter: ANA Aguero MD: Manohar Lawler MD Supervisor Lens Generating: Gerald Molina MD Symptoms: I35.0 - Nonrheumatic aortic (valve) stenosis Study Quality: Adequate ECG Rhythm: Sinus Conclusions: - 1. Normal LV systolic function with grade 2 diastolic dysfunction 2. With mild left atrial enlargement 3. Severe aortic stenosis with mean gradient of 43 mmHg 4. Normal RV systolic pressure 5. No gross pericardial effusion Findings Left Ventricle Normal left ventricular size, thickness, and systolic function. The visually estimated ejection fraction is between 65-70%. Spectral Doppler is indicative of a pseudonormal filling pattern. E/E prime ratio is >15, consistent with elevated filling pressures. Evidence suggests grade II (moderate) diastolic dysfunction. There is mild septal asymmetric hypertrophy. Right Ventricle Normal right ventricular cavity size and systolic function. Atria The left atrium is mildly dilated. There is no evidence of interatrial shunt. The right atrium is normal in size. Aortic Valve There is moderate calcification of the aortic valve. There is moderate thickening of the aortic valve. There is severe aortic valve stenosis. The peak aortic gradient is 74 mmHg.The mean gradient is 43 mmHg. The aortic valve area is 0.64 cm2. There is no aortic valve regurgitation. Mitral Valve There is mild anterior and posterior mitral leaflet thickening. There is trace mitral valve regurgitation. There is no mitral valve stenosis. Pulmonic Valve The pulmonic valve was not well visualized. Tricuspid Valve Normal tricuspid valve structure. There is trace tricuspid valve regurgitation. The right ventricular systolic pressure is normal. The right ventricular systolic pressure is 30 mmHg. Normal right atrial pressure. There is no evidence of pulmonary hypertension. Great Vessels All visible segments of the aorta are normal in size. The pulmonary artery was not well visualized. Venous The inferior vena cava is normal in size and collapses greater than 50% with inspiration. Pericardium/Pleural There is no evidence of pericardial effusion. Prior Study Comparison Changes noted compared to prior study dated: 08/16/2022. mean gradients across aortic valve increased from 33 mmHg to 43 mmHg Measurements 2D Linear Measurements IVSd: 1.17 0.6-0.9/0.6-1.0 cm LVIDd: 3.85 3.9-5.3/4.2-5.9 cm LVIDd Index: 2.47 2.4-3.2/2.2-3.1 cm/m2 LVIDs: 2.09 2.0-3.6 cm LVPWd: 0.90 0.7-1.1 cm LA Diam: 4.20 2.7-3.8/3.0-4.0 cm LAIDs Index: 2.69 1.5-2.3 cm/m2 LV Mass: 156.21 67-162/88-224 g LV Mass Index: 100.13 43-95/49-115 g/m2 LVOT Diam: 1.90 3.0+(-)1.3 cm 2D Systolic Function EF 4C: 57.70 >55% EF 2C: 76.90 >55% EF BiP: 67.80 >55% Mitral Valve MV Pk E: 0.90 MV PK A: 0.49 MV Decel Time: 199.00 E/A: 1.80 E'Lateral: 6.81 E'Medial: 3.32 E/E' Med: 27.20 E/E' Lat: 13.20 PHT: 58.00 MVA PHT: 3.79 Decel Queens: 4.54 Aortic Valve AoV Pk Kun: 4.30 AoV Mn Kun: 3.08 AoV VTI: 1.04 AoV Pk Grad: 74.00 Aov Mn Grad: 43.00 EDELMIRA Cont.VTI: 0.64 AI Pk Kun: 4.10 AI Queens: 2.54 LVOT LVOT Pk Kun: 0.91 LVOT Mn Kun: 0.68 LVOT VTI: 0.24 LVOT Pk Grad: 3.00 LVOT Mn Grad: 2.00 LVOT Diam: 1.90 LVOT Area: 2.84 Diastolic Function MV Pk E: 0.90 MV Pk A: 0.49 E/A: 1.80 E'Medial: 3.32 E/E' Med: 27.20 E' Laterial: 6.81 E/E' Lat: 13.20 Right Ventricle TAPSE (mm): 18.30 TVS' Kun: 13.50 Tricuspid Valve TR Pk Kun: 2.61 TR Pk Grad: 27.00 RA Press: 3.00 RVSP: 30.00 Great Vessels Aorta Sinus of Valsalva: 3.10 2.0-3.5 cm Ao Asc: 3.40 2.1-3.4 cm Pulmonary Valve PV Pk Kun: 1.76 PV Min Kun: 1.24 Peak PV Grad: 12.00 PV Mn Grad: 7.00 Updated in Other Vendor System with Status of Final Gerald Molina MD electronically signed on 03/23/2023 2:53:38 PM with status of Final
== END ==
LOC: HO.CARD 10:50
PROVIDERS: PCP Nurse Practitioner Family; Visit Provider Internal Medicine
DX: I35.0 Nonrheumatic aortic (valve) stenosis (principal)
CPT/HCPCS: 93306

== ENCOUNTER 2023-04-03 09:15 | Outpatient (REF) | payer MEDICARE, SELFPAY ==
[2023-04-03 12:13] LABS: TSH reflex Free T4 13.27 uIU/mL (0.32-4.0)
[2023-04-03 12:43] LABS: Free T4 (Free Thyroxine) 0.91 ng/dL (0.71-1.85)
== END 2023-04-03 09:16 | disposition home or self-care (01) ==
LOC: HO.HMGCLDS 09:15
PROVIDERS: PCP Internal Medicine; Visit Provider Internal Medicine
DX: E03.9 Hypothyroidism, unspecified (principal); E78.9 Disorder of lipoprotein metabolism, unspecified; F33.2 Major depressive disorder, recurrent severe without psychotic features; F41.1 Generalized anxiety disorder; I35.0 Nonrheumatic aortic (valve) stenosis; I63.9 Cerebral infarction, unspecified; N32.9 Bladder disorder, unspecified; R10.13 Epigastric pain
CPT/HCPCS: 36415; 84439; 84443

== ENCOUNTER → 2023-04-04 12:38 | Outpatient (BNVA) | payer MEDICARE, SELFPAY | PROVIDERS: PCP Internal Medicine; Referring Provider Nurse Practitioner Family; Visit Provider Internal Medicine | DX: I35.0 Nonrheumatic aortic (valve) stenosis (principal); I63.9 Cerebral infarction, unspecified | CPT/HCPCS: 99212 ==

== ENCOUNTER 2023-05-14 11:50 | Outpatient (REF) | payer MEDICARE, SELFPAY ==
[2023-05-14 14:17] LABS: Hematocrit 36.5 % (37.0-47.0); Hemoglobin 11.6 g/dl (12.0-16.0); Mean Corpuscular HGB Conc 31.8 g/dl (31.0-35.0); Mean Corpuscular Hemoglobin 30.3 pg (27.0-33.0); Mean Corpuscular Volume 95.3 fL (80.0-98.0); Mean Platelet Volume 11.5 fL (9.4-12.3); Platelet Count 228 X10*3/uL (160-400); Red Blood Count 3.83 X10*6/uL (4.20-5.50); Red Cell Distribution Width 15.5 % (11.0-16.0); White Blood Count 7.1 X10*3/uL (4.8-10.8)
[2023-05-14 14:20] LABS: Prothrombin Time 11.9 SEC (10.0-13.1)
[2023-05-14 14:35] LABS: Alanine Aminotransferase 15 U/L (0-31); Albumin Level 3.6 g/dL (3.5-5.0); Alkaline Phosphatase 93 U/L (39-117); Anion Gap 11 (12-20); Aspartate Amino Transferase 22 U/L (5-31); Bilirubin Total 0.6 mg/dL (0.0-1.0); Blood Urea Nitrogen 17 mg/dL (9-16); Calcium 9.3 mg/dL (8.4-10.2); Carbon Dioxide 28 mmol/L (22-29); Chloride 106 mmol/L (96-108); Cholesterol 139 mg/dL; Estimated Glomerular Filt Rate > 60; Glucose Fasting 102 mg/dL (60-99); Glucose Random 101 mg/dL (60-115); HDL Cholesterol 45 mg/dL; LDL Cholesterol Calculated 78 mg/dl; Potassium 4.2 mmol/L (3.3-5.1); Sodium 141 mmol/L (135-145); Total Protein 6.2 g/dL (6.5-8.0); Triglycerides 82 mg/dL
[2023-05-14 14:51] LABS: TSH reflex Free T4 0.48 uIU/mL (0.32-4.0)
== END 2023-05-14 11:51 | disposition home or self-care (01) ==
LOC: HO.HMGCLDS 11:50
PROVIDERS: Absent Provider Internal Medicine; PCP Internal Medicine; Visit Provider Internal Medicine
DX: E03.9 Hypothyroidism, unspecified (principal); E78.9 Disorder of lipoprotein metabolism, unspecified; F33.2 Major depressive disorder, recurrent severe without psychotic features; F41.1 Generalized anxiety disorder; I35.0 Nonrheumatic aortic (valve) stenosis; I63.9 Cerebral infarction, unspecified; N32.9 Bladder disorder, unspecified; R10.13 Epigastric pain; I25.10 Atherosclerotic heart disease of native coronary artery without angina pectoris
CPT/HCPCS: 36415; 80048; 80053; 80061; 84443; 85027; 85610

== ENCOUNTER 2023-06-20 11:08 | Outpatient (REF) | payer MEDICARE, SELFPAY ==
[2023-06-20 13:17] LABS: MANUAL DIFF FLAG NO
[2023-06-20 13:34] LABS: Basophils Absolute Auto 0.1 X10*3/uL (0.0-0.2); Eosinophils Absolute Auto 1.1 X10*3/uL (0.0-0.4); Eosinophils Percent Auto 14.8 % (0-4); Hematocrit 38.5 % (37.0-47.0); Hemoglobin 11.8 g/dl (12.0-16.0); Imm Gran Abs Auto 0.02 X10*3/uL (0.00-0.03); Imm Gran Pct Auto 0.3 % (0.0-0.4); Lymphocytes Absolute Auto 1.7 X10*3/uL (1.2-4.9); Lymphocytes Percent Auto 22.1 % (20-40); Mean Corpuscular HGB Conc 30.6 g/dl (31.0-35.0); Mean Corpuscular Hemoglobin 29.6 pg (27.0-33.0); Mean Corpuscular Volume 96.5 fL (80.0-98.0); Mean Platelet Volume 11.6 fL (9.4-12.3); Monocytes Absolute Auto 0.7 X10*3/uL (0.1-1.2); Monocytes Percent Auto 9.5 % (2-11); Neutrophils Percent Auto 52.3 % (45-73); Platelet Count 213 X10*3/uL (160-400); Red Blood Count 3.99 X10*6/uL (4.20-5.50); Red Cell Distribution Width 15.7 % (11.0-16.0); White Blood Count 7.7 X10*3/uL (4.8-10.8)
[2023-06-20 13:47] LABS: Prothrombin Time 12.4 SEC (11.1-13.3)
[2023-06-20 13:57] LABS: Anion Gap 15 (12-20); Blood Urea Nitrogen 18 mg/dL (9-16); Calcium 9.3 mg/dL (8.4-10.2); Carbon Dioxide 25 mmol/L (22-29); Chloride 109 mmol/L (96-108); Estimated Glomerular Filt Rate > 60; Glucose Random 99 mg/dL (60-115); Potassium 4.5 mmol/L (3.3-5.1); Sodium 144 mmol/L (135-145)
== END 2023-06-20 11:09 | disposition home or self-care (01) ==
LOC: HO.HMGCLDS 11:08
PROVIDERS: PCP Internal Medicine; Visit Provider Internal Medicine
DX: I35.0 Nonrheumatic aortic (valve) stenosis (principal); E78.9 Disorder of lipoprotein metabolism, unspecified; I63.9 Cerebral infarction, unspecified; R53.83 Other fatigue; R01.1 Cardiac murmur, unspecified; Z86.73 Personal history of transient ischemic attack (TIA), and cerebral infarction without residual deficits
CPT/HCPCS: 36415; 80048; 85025; 85610

== ENCOUNTER → 2023-07-03 23:59 | Outpatient (BNV) | payer MEDICARE, SELFPAY | PROVIDERS: PCP Internal Medicine; Visit Provider Internal Medicine Cardiovascular Disease | DX: I35.0 Nonrheumatic aortic (valve) stenosis (principal) | CPT/HCPCS: 93454; 99152 ==

== ENCOUNTER 2023-07-18 12:58 | Outpatient (AMB) | payer MEDICARE, SELFPAY ==
--- NOTE | 2023-07-18 13:01 | MHC.OFFVIS ---
Intake Vital Signs 07/18/23 13:02 Height 5 ft 4 in Weight 119 lb 0.794 oz BMI 20.4 BP 124/70 Blood Pressure Location Lt brachial Position Sitting Pulse 62 Intake Visit Reasons: Follow up post cardiac cath Intake Note: follow up cardiac cath [employer] Required: No Accompanied by: daughter in law Allergies No Known Allergies Allergy (Verified 07/18/23 13:02) Medication List - Last Reconciled 07/18/23 by Manohar Lawler MD aspirin (Adult Low Dose Aspirin) 81 mg PO DAILY 90 days atorvastatin 40 mg PO DAILY 90 days clonazepam 0.5 mg PO DAILY PRN ketoconazole 2% 1 appl topical DAILY ketorolac 0.5% 0 drps ophthalmic (eye) levothyroxine 100 mcg PO DAILY 90 days omeprazole 20 mg PO DAILY 90 days sertraline 100 mg PO DAILY 90 days tafluprost (PF) (Zioptan (PF)) 1 drp ophthalmic (eye) BEDTIME HPI HPI Comments History of Present Illness Details Carissa returns for follow-up regarding aortic stenosis. Due to symptoms of shortness of breath as well as fatigue, she was seen by TAVR team and she has also had a diagnostic cardiac catheterization. Overall, states she has been doing okay. No new complaints. [facility] Medical History Anxiety, generalized Bladder disorder Closed fracture of metatarsal bone of right foot Depression, major, severe recurrence Dyspepsia Heart murmur History of stroke Ischemic stroke Lipid disorder Other specified hypothyroidism Right foot pain Surgical History H/O: hysterectomy History of cholecystectomy History of hysterectomy Hx of cholecystectomy Right-sided lacunar infarction Family History Mother No problems noted. Father No problems noted. Father No problems noted. Mother Stroke Brother No problems noted. Sister No problems noted. Sister No problems noted. Sister No problems noted. Son No problems noted. Son No problems noted. Social History Housing: House Alcohol intake: never Patient Tobacco Use Status: Former Tobacco user (quit over 50 years ago ) e-Cigarette/Vaping Use: Never Used Second Hand Smoke Exposure: No service: No Current occupational status: retired Cognitive needs: No Hearing needs: No Vision needs: Yes Review of Systems Const Denies weakness ENT Denies dizziness Card Denies chest pain, Denies chest pain with activity, Denies syncope, Denies rapid heart rate, Denies pedal edema, Denies edema, Denies leg edema, Denies lightheadedness, Denies palpitations, Denies dyspnea, Denies dyspnea on exertion and Denies orthopnea Resp Denies cough, Denies dyspnea and Denies dyspnea on exertion GI Denies hematochezia and Denies change in stool character Musc Denies abnormal gait, Denies muscle cramps, Denies muscle weakness, Denies numbness, Denies radiating pain into limb and Denies tingling Neuro Denies Abnormal speech present, Denies abnormal gait, Denies dizziness, Denies syncope, Denies numbness, Denies tingling and Denies weakness Endo Denies palpitations Physical Exam Vital Signs: Last Vital Signs Pulse 62 07/18/23 13:02 BP 124/70 07/18/23 13:02 BMI result Body Mass Index 20.4 Const General: comfortable and no acute distress Orientation/consciousness: patient oriented x3 HEENT Other: Unremarkable Head: Yes normal to inspection Neck Neck: Yes normal visual inspection Chest Chest palpation & inspection: normal inspection of the chest Resp Auscultation: clear to auscultation bilaterally Cardio Palpation: normal PMI Heart sounds: S1 normal heart sound present, S2 normal heart sound present, no gallops, Murmur heart sound present systolic III/ and at the right sternal border and no rubs GI Palpation (GI): Soft to palpation Back/Spine/Pelvis Other: unremarkable Skin General skin exam: no rashes or lesions noted Neuro General: patient oriented x3 Speech: No Abnormal speech present Extrem General: Yes normal to inspection Psych Mental Status: mental status grossly normal Assessment & Plan Assessment & Plan (1) Non-rheumatic aortic stenosis: Code(s): I35.0 - Nonrheumatic aortic (valve) stenosis Plan: In the most recent echocardiogram, mean gradient across aortic valve was 43 mm Hg. Peak gradient is 74 mm Hg. Calculated valve area 0.6 sq cm. No aortic regurgitation. LVEF 65-70% with moderate diastolic dysfunction. Cardiac catheterization shows minimal irregularities in the LAD but otherwise normal coronaries. Already seen by Dr. Still. Cardiac surgery appointment is pending. We went over the details again today. (2) Ischemic stroke: Code(s): I63.9 - Cerebral infarction, unspecified Plan: Per [facility] neurology office note, she had a stroke in 2018. Right-sided lacunar stroke thought to be from small vessel disease or cardiac emboli. At that time, she had a Holter which showed no evidence of atrial fibrillation and an echocardiogram was also not convincing for any cardiac source of embolus. CTA of the head and neck without any large vessel occlusion. No definitive neurological deficits. Coding Level of Care Code Est Pt Level 4 (96324) Diagnoses Non-rheumatic aortic stenosis I35.0 Ischemic stroke I63.9
[2023-07-18 13:02] VITALS: BP 124/70; PULSE 62; BMI 20.4
== END 2023-07-18 13:30 | disposition home or self-care (01) ==
PROVIDERS: PCP Internal Medicine; Referring Provider Internal Medicine; Visit Provider Internal Medicine
DX: I35.0 Nonrheumatic aortic (valve) stenosis (principal); I63.9 Cerebral infarction, unspecified
CPT/HCPCS: 99214

== ENCOUNTER → 2023-07-18 12:58 | Outpatient (BNVA) | payer MEDICARE, SELFPAY | PROVIDERS: PCP Internal Medicine; Referring Provider Internal Medicine; Visit Provider Internal Medicine | DX: I35.0 Nonrheumatic aortic (valve) stenosis (principal); Z86.73 Personal history of transient ischemic attack (TIA), and cerebral infarction without residual deficits | CPT/HCPCS: 99212 ==

== ENCOUNTER 2023-08-10 11:00 | Outpatient (RCR) | payer MEDICARE, SELFPAY ==
[2023-06-29 10:02] VITALS: BP 112/70; PULSE 62; O2SAT 99
== END 2023-08-10 11:55 | disposition home or self-care (01) ==
LOC: HO.PTCHIC 11:00
PROVIDERS: PCP Internal Medicine; Visit Provider Psychiatry & Neurology Neurology
DX: H81.11 Benign paroxysmal vertigo, right ear (principal)
CPT/HCPCS: 97110; 97112; 97162

== ENCOUNTER 2023-08-15 09:47 | Outpatient (AMB) | payer MEDICARE, SELFPAY ==
[2023-08-15 09:56] VITALS: BP 116/60; PULSE 64; O2SAT 95; BMI 20.7
--- NOTE | 2023-08-15 09:56 | MHC.PC.OV ---
Vital Signs 08/15/23 09:56 Height 5 ft 4 in Weight 120 lb 6 oz BMI 20.7 BP 116/60 Blood Pressure Location Lt brachial Position Sitting Pulse 64 Pulse Source Pulse Oximeter Pulse Oximetry (%) 95 Oxygen Delivery Method Room Air Intake Visit Reasons: 4m follow up Allergies No Known Allergies Allergy (Verified 08/15/23 09:57) Medication List - Last Reconciled 08/15/23 by Jae Arteaga MD aspirin (Adult Low Dose Aspirin) 81 mg PO DAILY 90 days atorvastatin 40 mg PO DAILY 90 days clonazepam 0.5 mg PO DAILY PRN ketoconazole 2% 1 appl topical DAILY ketorolac 0.5% 0 drps ophthalmic (eye) levothyroxine 100 mcg PO DAILY 90 days omeprazole 20 mg PO DAILY 90 days sertraline 100 mg PO DAILY 90 days tafluprost (PF) 0.0015% (Zioptan (PF)) 1 drp ophthalmic (eye) BEDTIME Tobacco use date assessed: 08/15/23 Fall risk assessment: 2 + Falls in past year Last assessed Fall Risk: 08/15/23 Dental Screening Dental Screen Date: 08/15/23 Did you have a dental visit in the last 12 months?: Yes Did you have a dental problem in the last 6 months where you did not have access to dental care?: No Was dental information given to patient?: Patient has dentist HPI 4m follow up HPI Details Patient is 83-year-old female Patient have severe aortic stenosis, she is scheduled to have aortic valve replacement August 21 at [facility] Patient already had a preop visit and had labs done, I do not have the report Hypothyroidism: Patient is to continue levothyroxine 100 mcg TSH is stable Continue atorvastatin 40 mg for lipid control GERD was stable with omeprazole Anxiety and depression is stable with sertraline 100 mg patient is tolerating medication no side effects She is seeing Dr. Quevedo and getting clonazepam through him for dizziness she tells me Patient had bone density done last year fall, which showed osteopenia, currently she is going for exercises at [employer] Follow-up in December, labs are needed before visit fasting [facility] Medical History Anxiety, generalized Bladder disorder Closed fracture of metatarsal bone of right foot Depression, major, severe recurrence Dyspepsia Heart murmur History of stroke Ischemic stroke Lipid disorder Other specified hypothyroidism Right foot pain Surgical History H/O: hysterectomy History of cholecystectomy History of hysterectomy Hx of cholecystectomy Right-sided lacunar infarction Family History Mother No problems noted. Father No problems noted. Father No problems noted. Mother Stroke Brother No problems noted. Sister No problems noted. Sister No problems noted. Sister No problems noted. Son No problems noted. Son No problems noted. Social History Housing: House Alcohol intake: never Patient Tobacco Use Status: Former Tobacco user (quit over 50 years ago ) e-Cigarette/Vaping Use: Never Used Second Hand Smoke Exposure: No service: No Current occupational status: retired Cognitive needs: No Hearing needs: No Vision needs: Yes Questionnaire Thrive Questionnaire Date Thrive assessed: 12/13/22 AUDIT C Alcohol Use Questionnaire (AUDIT-C) 1. How often do you have a drink containing alcohol?: Never 3. How often do you have six or more drinks on one occasion?: Never Total Score: 0 Score Reviewed/Action Taken: Yes ADELFO-7 AMB Questionnaire ADELFO-7 Date ADELFO - 7 assessed: 12/13/22 Source: Developed by Drs. Fortino Franklin, Elda Cotto, Gurdeep Jones and colleagues, with an educational david from [employer] Review of Systems Const Denies chills and Denies fever(s) ENT Denies epistaxis and Denies nasal discharge Card Denies chest pain Resp Denies chest congestion, Denies cough and Denies hemoptysis GI Denies diarrhea and Denies nausea Skin/Breast Denies rash Neuro Reports no additional complaints Psych Reports no additional complaints Endo Reports no additional complaints Physical exam (Primary Care) Vital Signs: Last Vital Signs Pulse 64 08/15/23 09:56 BP 116/60 08/15/23 09:56 Pulse Ox 95 08/15/23 09:56 Oxygen Delivery Method Room Air 08/15/23 09:56 BMI result Body Mass Index 20.7 Tobacco/Smoking Status: Tobacco use Status Tobacco use date assessed 08/15/23 08/15/23 09:58 Patient Tobacco Use Status Former Tobacco user (quit 08/15/23 09:58 over 50 years ago ) e-Cigarette/Vaping Use Never Used 08/15/23 09:58 Thrive Assessment: Date of Thrive Assessment Date Thrive assessed 12/13/22 08/15/23 09:58 Const General: cooperative, comfortable and no acute distress Orientation/consciousness: patient oriented x3 HENMT Head: Yes normocephalic Eyes General: appearance normal, both eyes and all related structures Neck Neck: Yes supple Resp Effort & Inspection: normal respiratory effort, no cough and no stridor Cardio Other: Loud murmur present Rhythm: regular rhythm Heart sounds: S1 normal heart sound present and S2 normal heart sound present Skin General skin exam: turgor normal Neuro Other: Patient uses cane for ambulation, gait cautious General: patient oriented x3, tone normal and moves all extremities Extrem Right lower extremity: no edema Left lower extremity: no edema Assessment and Plan Assessment & Plan (1) Depression, major, severe recurrence: Code(s): F33.2 - Major depressive disorder, recurrent severe without psychotic features Qualifiers: Psychotic features: without psychotic features Qualified Code(s): F33.2 - Major depressive disorder, recurrent severe without psychotic features (2) Aortic valve stenosis, moderate: Code(s): I35.0 - Nonrheumatic aortic (valve) stenosis (3) Lumbar pain: Code(s): M54.50 - Low back pain, unspecified (4) Anxiety, generalized: Code(s): F41.1 - Generalized anxiety disorder (5) Lipid disorder: Code(s): E78.9 - Disorder of lipoprotein metabolism, unspecified (6) Hypothyroidism: Code(s): E03.9 - Hypothyroidism, unspecified Qualifiers: Hypothyroidism type: unspecified Qualified Code(s): E03.9 - Hypothyroidism, unspecified (7) Dyspepsia: Code(s): R10.13 - Epigastric pain Plan Patient is 83-year-old female Patient have severe aortic stenosis, she is scheduled to have aortic valve replacement August 21 at [facility] Patient already had a preop visit and had labs done, I do not have the report Hypothyroidism: Patient is to continue levothyroxine 100 mcg TSH is stable Continue atorvastatin 40 mg for lipid control GERD was stable with omeprazole Anxiety and depression is stable with sertraline 100 mg patient is tolerating medication no side effects She is seeing Dr. Quevedo and getting clonazepam through him for dizziness she tells me Patient had bone density done last year fall, which showed osteopenia, currently she is going for exercises at [employer] [facility] Follow-up in December, labs are needed before visit fasting Orders: Orders XR lumbar spine 2-3V Today M54.50 - Low back pain, unspecified Lipid Panel Today E03.9 - Hypothyroidism, unspecified, E78.9 - Disorder of lipoprotein metabolism, unspecified, F33.2 - Major depressive disorder, recurrent severe without psychotic features, F41.1 - Generalized anxiety disorder, I35.0 - Nonrheumatic aortic (valve) stenosis, M54.50 - Low back pain, unspecified, R10.13 - Epigastric pain TSH reflex Free T4 Today E03.9 - Hypothyroidism, unspecified, E78.9 - Disorder of lipoprotein metabolism, unspecified, F33.2 - Major depressive disorder, recurrent severe without psychotic features, F41.1 - Generalized anxiety disorder, I35.0 - Nonrheumatic aortic (valve) stenosis, M54.50 - Low back pain, unspecified, R10.13 - Epigastric pain Complete Blood Count Auto Diff Today E03.9 - Hypothyroidism, unspecified, E78.9 - Disorder of lipoprotein metabolism, unspecified, F33.2 - Major depressive disorder, recurrent severe without psychotic features, F41.1 - Generalized anxiety disorder, I35.0 - Nonrheumatic aortic (valve) stenosis, M54.50 - Low back pain, unspecified, R10.13 - Epigastric pain Comprehensive Wade. Panel Fast Today E03.9 - Hypothyroidism, unspecified, E78.9 - Disorder of lipoprotein metabolism, unspecified, F33.2 - Major depressive disorder, recurrent severe without psychotic features, F41.1 - Generalized anxiety disorder, I35.0 - Nonrheumatic aortic (valve) stenosis, M54.50 - Low back pain, unspecified, R10.13 - Epigastric pain Coding Level of Care Code Est Pt Level 4 (56424) Diagnoses Severe episode of recurrent major depressive disorder, without psychotic features F33.2 Psychotic features: without psychotic features Aortic valve stenosis, moderate I35.0 Lumbar pain M54.50 Anxiety, generalized F41.1 Lipid disorder E78.9 Hypothyroidism, unspecified type E03.9 Hypothyroidism type: unspecified Dyspepsia R10.13
== END 2023-08-15 10:45 | disposition home or self-care (01) ==
PROVIDERS: Visit Provider Internal Medicine
DX: E03.9 Hypothyroidism, unspecified (principal); F33.2 Major depressive disorder, recurrent severe without psychotic features; I35.0 Nonrheumatic aortic (valve) stenosis; M54.50 Low back pain, unspecified; F41.1 Generalized anxiety disorder; E78.9 Disorder of lipoprotein metabolism, unspecified; R10.13 Epigastric pain
CPT/HCPCS: 99214

== ENCOUNTER 2023-08-15 10:10 | Outpatient (REF) | payer MEDICARE, SELFPAY ==
--- NOTE | ~2023-08-15 | XR_ITS ---
EXAMINATION: XR LUMBOSACRAL SPINE CLINICAL INFORMATION: Low back pain COMPARISON: None available. TECHNIQUE: Three views of the lumbosacral spine. FINDINGS: There are 5 non ribs bearing vertebral bodies and lumbar spine. There is levoscoliosis of lower lumbar spine and straightening of lumbar lordosis with grade 1 anterior listhesis of L4 over L5 and narrowing of L1-L2, L3-L4, L5-S1. There is facets arthropathy at the level of L3-L4, L4-L5, L5-S1. There are postsurgical chau in the retroperitoneum and pelvis. XR/XR lumbar spine 2-3V IMPRESSION: Multilevel degenerative changes as described.
== END 2023-08-15 10:11 | disposition home or self-care (01) ==
LOC: HO.HMGCX 10:10
PROVIDERS: PCP Internal Medicine; Visit Provider Internal Medicine
DX: M54.50 Low back pain, unspecified (principal)
CPT/HCPCS: 72100

== ENCOUNTER → 2023-09-18 12:57 | Outpatient (REF) | payer MEDICARE, SELFPAY ==
--- NOTE | 2023-09-18 12:59 | CA_ITS ---
Transthoracic Echocardiogram Patient (Last, First, Middle): Carissa Martin A Gender: Female Date of : 1940 Age: 83 Procedure Date: 09/18/2023 Procedure Type: Transthoracic Echocardiogram Location: OP Height: 160.02 cm Weight: 54.43 kg BSA: 1.56 m2 Heart Rate: bpm BP: 138 / 70 mmHg Criminal Profiler: TO Referring MD: Manohar Lawler MD Symptoms: I35.0 - Nonrheumatic aortic (valve) stenosis Study Quality: Fair ECG Rhythm: Sinus Conclusions: - The left ventricular systolic function is normal. The visually estimated ejection fraction is between 65-70%. - A bioprosthetic aortic valve is present. The prosthetic aortic valve appears to be functioning normally. Findings Left Ventricle Normal left ventricular cavity size. The left ventricular systolic function is normal. The visually estimated ejection fraction is between 65-70%. There is no evidence of regional wall motion abnormalities. Evidence suggests grade II (moderate) diastolic dysfunction. There is severe septal and severe basal asymmetric hypertrophy. Right Ventricle Normal right ventricular cavity size and systolic function. Atria The left atrium is mildly dilated. The right atrium is normal in size. Aortic Valve A bioprosthetic aortic valve is present. The prosthetic aortic valve appears to be functioning normally. There is no aortic valve regurgitation. Mitral Valve The mitral valve appears normal. There is trace mitral valve regurgitation. There is no mitral valve stenosis. Pulmonic Valve There is trace pulmonic valve regurgitation. Tricuspid Valve Normal tricuspid valve structure. There is mild tricuspid valve regurgitation. There is no evidence of pulmonary hypertension. Great Vessels The asc aorta is normal in size. Venous The inferior vena cava was not well visualized. The inferior vena cava is normal in size. Pericardium/Pleural There is no evidence of pericardial effusion. Prior Study Comparison Changes noted compared to prior study dated: 03/22/2023. s/p TAVR. Measurements 2D Linear Measurements IVSd: 1.54 0.6-0.9/0.6-1.0 cm LVIDd: 4.09 3.9-5.3/4.2-5.9 cm LVIDd Index: 2.62 2.4-3.2/2.2-3.1 cm/m2 LVIDs: 2.62 2.0-3.6 cm LVPWd: 0.83 0.7-1.1 cm LA Diam: 3.90 2.7-3.8/3.0-4.0 cm LAIDs Index: 2.50 1.5-2.3 cm/m2 LV Mass: 209.61 67-162/88-224 g LV Mass Index: 134.36 43-95/49-115 g/m2 LVOT Diam: 2.00 3.0+(-)1.3 cm 2D Systolic Function EF 4C: 62.90 >55% EF 2C: 67.50 >55% EF BiP: 65.20 >55% Mitral Valve MV VTI: 0.33 MV Pk Kun: 1.09 MV Mn Kun: 0.60 MV Pk Grad: 5.00 MV Mn Grad: 2.00 MV Pk E: 0.92 MV PK A: 0.86 MV Decel Time: 298.00 E/A: 1.10 E'Lateral: 5.11 E'Medial: 2.94 E/E' Med: 31.20 E/E' Lat: 17.90 PHT: 87.00 MVA PHT: 2.53 MVA Continuity: 2.13 Decel Woods: 3.08 Aortic Valve AoV Pk Kun: 2.25 AoV Mn Kun: 1.55 AoV VTI: 0.52 AoV Pk Grad: 20.00 Aov Mn Grad: 11.00 EDELMIRA Cont.VTI: 1.34 LVOT LVOT Pk Kun: 0.93 LVOT Mn Kun: 0.68 LVOT VTI: 0.22 LVOT Pk Grad: 3.00 LVOT Mn Grad: 2.00 LVOT Diam: 2.00 LVOT Area: 3.14 Diastolic Function MV Pk E: 0.92 MV Pk A: 0.86 E/A: 1.10 E'Medial: 2.94 E/E' Med: 31.20 E' Laterial: 5.11 E/E' Lat: 17.90 Right Ventricle TAPSE (mm): 23.00 TVS' Kun: 12.70 Tricuspid Valve TR Pk Kun: 2.44 TR Pk Grad: 24.00 RA Press: 3.00 RVSP: 27.00 Great Vessels Aorta Sinus of Valsalva: 3.23 2.0-3.5 cm Ao Asc: 3.20 2.1-3.4 cm Updated in Other Vendor System with Status of Final Manohar Lawler MD electronically signed on 09/19/2023 12:37:45 PM with status of Final
== END ==
LOC: HO.CARD 12:57
PROVIDERS: PCP Internal Medicine; Visit Provider Internal Medicine
DX: I35.0 Nonrheumatic aortic (valve) stenosis (principal); Z95.3 Presence of xenogenic heart valve
CPT/HCPCS: 93306

== ENCOUNTER → 2023-09-18 12:59 | Outpatient (BNV) | payer MEDICARE, SELFPAY | PROVIDERS: PCP Internal Medicine; Visit Provider Internal Medicine | DX: I36.1 Nonrheumatic tricuspid (valve) insufficiency (principal); Z95.3 Presence of xenogenic heart valve | CPT/HCPCS: 93306 ==

== ENCOUNTER 2023-11-08 08:51 | Outpatient (REF) | payer MEDICARE, SELFPAY ==
[2023-11-08 11:32] LABS: MANUAL DIFF FLAG NO
[2023-11-08 12:02] LABS: Basophils Absolute Auto 0.1 X10*3/uL (0.0-0.2); Basophils Percent Auto 1.3 % (0-2); Eosinophils Percent Auto 14.7 % (0-4); Hematocrit 36.8 % (37.0-47.0); Hemoglobin 11.6 g/dl (12.0-16.0); Imm Gran Abs Auto 0.02 X10*3/uL (0.00-0.03); Imm Gran Pct Auto 0.3 % (0.0-0.4); Lymphocytes Absolute Auto 1.7 X10*3/uL (1.2-4.9); Lymphocytes Percent Auto 24.4 % (20-40); Mean Corpuscular HGB Conc 31.5 g/dl (31.0-35.0); Mean Corpuscular Hemoglobin 30.3 pg (27.0-33.0); Mean Corpuscular Volume 96.1 fL (80.0-98.0); Monocytes Absolute Auto 0.8 X10*3/uL (0.1-1.2); Monocytes Percent Auto 11.5 % (2-11); Neutrophils Absolute Auto 3.3 x10*3/uL (2.0-8.3); Neutrophils Percent Auto 47.8 % (45-73); Platelet Count 203 X10*3/uL (160-400); Red Blood Count 3.83 X10*6/uL (4.20-5.50); Red Cell Distribution Width 14.5 % (11.0-16.0)
[2023-11-08 12:37] LABS: Alanine Aminotransferase 16 U/L (0-31); Albumin Level 3.4 g/dL (3.5-5.0); Alkaline Phosphatase 101 U/L (39-117); Anion Gap 10 (12-20); Aspartate Amino Transferase 23 U/L (5-31); Bilirubin Total 0.3 mg/dL (0.0-1.0); Blood Urea Nitrogen 18 mg/dL (9-16); Calcium 8.7 mg/dL (8.4-10.2); Carbon Dioxide 28 mmol/L (22-29); Chloride 108 mmol/L (96-108); Cholesterol 143 mg/dL (<200); Estimated Glomerular Filt Rate 57; Glucose Fasting 85 mg/dL (60-99); HDL Cholesterol 47 mg/dL (>40); LDL Cholesterol Calculated 79 mg/dL (<100); Potassium 3.8 mmol/L (3.3-5.1); Sodium 142 mmol/L (135-145); Triglycerides 86 mg/dL (<150)
[2023-11-08 12:38] LABS: TSH reflex Free T4 1.18 uIU/mL (0.32-4.0)
== END 2023-11-08 08:52 | disposition home or self-care (01) ==
LOC: HO.HMGCLDS 08:51
PROVIDERS: Absent Provider Nurse Practitioner; PCP Internal Medicine; Visit Provider Internal Medicine
DX: E78.9 Disorder of lipoprotein metabolism, unspecified (principal); R10.13 Epigastric pain; E03.9 Hypothyroidism, unspecified; I35.0 Nonrheumatic aortic (valve) stenosis; F41.1 Generalized anxiety disorder; F33.2 Major depressive disorder, recurrent severe without psychotic features; M54.50 Low back pain, unspecified; I44.7 Left bundle-branch block, unspecified; E78.5 Hyperlipidemia, unspecified; I10 Essential (primary) hypertension; Z95.2 Presence of prosthetic heart valve
CPT/HCPCS: 36415; 80053; 80061; 84443; 85025

== ENCOUNTER 2023-11-13 13:16 | Outpatient (AMB) | payer MEDICARE, SELFPAY ==
--- NOTE | 2023-11-13 13:24 | A.OFFVIS_ITS ---
Intake Vital Signs 11/13/23 13:26 Height 5 ft 4 in Weight 119 lb 0.794 oz BMI 20.4 BP 130/62 Blood Pressure Location Lt brachial Position Sitting Pulse 48 L Intake Visit Reasons: 4 month follow up Intake Note: 4 month follow up Document Control Associate Required: No Accompanied by: Self / Same As Patient Allergies No Known Allergies Allergy (Verified 11/13/23 13:25) Medication List - Last Reconciled 11/13/23 by Manohar Lawler MD aspirin (Adult Low Dose Aspirin) 81 mg PO DAILY 90 days atorvastatin 40 mg PO DAILY 90 days clonazepam 0.5 mg PO DAILY PRN ketoconazole 2% 1 appl topical DAILY ketorolac 0.5% 0 drps ophthalmic (eye) levothyroxine 100 mcg PO DAILY 90 days metoprolol succinate ER 12.5 mg PO DAILY omeprazole 20 mg PO DAILY 90 days sertraline 100 mg PO DAILY 90 days HPI HPI Comments History of Present Illness Details Carissa returns for follow-up regarding aortic stenosis. As she was quite symptomatic, recently underwent TAVR. After the procedure, she states that she is feeling significantly improved. Her shortness of breath is much better. Overall, she is doing well. No new concerns. 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 Father No problems noted. Father No problems noted. Mother Stroke Brother No problems noted. Sister No problems noted. Sister No problems noted. Sister No problems noted. Son No problems noted. Son No problems noted. Social History Housing: House Alcohol intake: never Patient Tobacco Use Status: Former Tobacco user (quit over 50 years ago ) e-Cigarette/Vaping Use: Never Used Second Hand Smoke Exposure: No service: No Current occupational status: retired Cognitive needs: No Hearing needs: No Vision needs: Yes Review of Systems Const Denies weakness ENT Denies dizziness Card Denies chest pain, Denies chest pain with activity, Denies syncope, Denies rapid heart rate, Denies pedal edema, Denies edema, Denies leg edema, Denies lightheadedness, Denies palpitations, Denies dyspnea, Denies dyspnea on exertion and Denies orthopnea Resp Denies cough, Denies dyspnea and Denies dyspnea on exertion GI Denies hematochezia and Denies change in stool character Musc Denies abnormal gait, Denies muscle cramps, Denies muscle weakness, Denies numbness, Denies radiating pain into limb and Denies tingling Neuro Denies abnormal gait, Denies dizziness, Denies syncope, Denies numbness, Denies tingling and Denies weakness Endo Denies palpitations Physical Exam Vital Signs: Last Vital Signs Pulse 48 L 11/13/23 13:26 BP 130/62 11/13/23 13:26 BMI result Body Mass Index 20.4 Const General: comfortable and no acute distress Orientation/consciousness: patient oriented x3 HEENT Other: Unremarkable Head: Yes normal to inspection Neck Neck: Yes normal visual inspection Chest Chest palpation & inspection: normal inspection of the chest Resp Auscultation: clear to auscultation bilaterally Cardio Palpation: normal PMI Heart sounds: S1 normal heart sound present, S2 normal heart sound present, no gallops, Murmur heart sound present systolic II/ and at the right sternal border and no rubs GI Palpation (GI): Soft to palpation Back/Spine/Pelvis Other: unremarkable Skin General skin exam: no rashes or lesions noted Neuro General: patient oriented x3 Extrem General: Yes normal to inspection Psych Mental Status: mental status grossly normal Office Procedures EKG Details: EKG shows sinus bradycardia at 48/Min; left bundle-branch block pattern. [id number], Complete Assessment & Plan Assessment & Plan (1) Status post transcatheter aortic valve replacement (TAVR) using bioprosthesis: Code(s): Z95.3 - Presence of xenogenic heart valve Plan: Postprocedure echo shows normal prosthetic valve function. Usual infective endocarditis prophylaxis per protocol. She remains on aspirin only. Preoperative cardiac catheterization shows minimal irregularities in the LAD but otherwise unremarkable. (2) Left bundle branch block: Code(s): I44.7 - Left bundle-branch block, unspecified Plan: Post TAVR left bundle-branch block. Per documentation, it seems that she underwent outpatient monitor that showed average heart rate of 63/Min, 1 run of NSVT 4 beats, 75 SVT runs. Then it seems that she was started on a small dose of metoprolol. We will recheck another Holter in the future. (3) Ischemic stroke: Code(s): I63.9 - Cerebral infarction, unspecified Plan: Per [facility] [place] note, she had a stroke in 2018. Right-sided lacunar stroke thought to be from small vessel disease or cardiac emboli. At that time, she had a Holter which showed no evidence of atrial fibrillation and an echocardiogram was also not convincing for any cardiac source of embolus. CTA of the head and neck without any large vessel occlusion. No definitive neurological deficits. Orders: Orders ECG 3 day holter monitor 3 Months I44.7 - Left bundle-branch block, unspecified, I49.8 - Other specified cardiac arrhythmias Coding Level of Care Code Est Pt Level 4 (85878) Diagnoses Status post transcatheter aortic valve replacement (TAVR) using bioprosthesis Z95.3 Left bundle branch block I44.7 Ischemic stroke I63.9 CPT Codes EKG - CPT: 80507-[id number], Complete ([id number])
[2023-11-13 13:26] VITALS: BP 130/62; PULSE 48; BMI 20.4
== END 2023-11-13 13:45 | disposition home or self-care (01) ==
PROVIDERS: PCP Internal Medicine; Visit Provider Internal Medicine
DX: Z95.3 Presence of xenogenic heart valve (principal); I44.7 Left bundle-branch block, unspecified; I63.9 Cerebral infarction, unspecified
CPT/HCPCS: 93010; 99214

== ENCOUNTER → 2023-11-13 13:16 | Outpatient (BNVA) | payer MEDICARE, SELFPAY | PROVIDERS: PCP Internal Medicine; Visit Provider Internal Medicine | DX: I44.7 Left bundle-branch block, unspecified (principal); Z95.3 Presence of xenogenic heart valve; Z86.73 Personal history of transient ischemic attack (TIA), and cerebral infarction without residual deficits | CPT/HCPCS: 93005; 99212 ==

== ENCOUNTER 2024-01-16 10:54 | Outpatient (AMB) | payer MEDICARE, SELFPAY ==
[2024-01-16 10:59] VITALS: BP 110/54; PULSE 65; O2SAT 93; BMI 20.8
--- NOTE | 2024-01-16 10:59 | MHC.PC.OV ---
Vital Signs 01/16/24 10:59 Height 5 ft 4 in Weight 121 lb BMI 20.8 BP 110/54 L Blood Pressure Location Lt brachial Position Sitting Pulse 65 Pulse Source Pulse Oximeter Pulse Oximetry (%) 93 Oxygen Delivery Method Room Air Intake Visit Reasons: Annual PE Allergies No Known Allergies Allergy (Verified 01/16/24 10:59) Medication List - Last Reconciled 01/16/24 by Jae Arteaga MD aspirin (Adult Low Dose Aspirin) 81 mg PO DAILY 90 days atorvastatin 40 mg PO DAILY 90 days clonazepam 0.5 mg PO DAILY PRN ketoconazole 2% 1 appl topical DAILY ketorolac 0.5% 0 drps ophthalmic (eye) levothyroxine 100 mcg PO DAILY 90 days metoprolol succinate ER 12.5 mg PO DAILY omeprazole 20 mg PO DAILY 90 days sertraline 100 mg PO DAILY 90 days Tobacco use date assessed: 01/16/24 Fall risk assessment: 1 Fall in past year Last assessed Fall Risk: 01/16/24 Dental Screening Dental Screen Date: 01/16/24 Did you have a dental visit in the last 12 months?: No Did you have a dental problem in the last 6 months where you did not have access to dental care?: No Was dental information given to patient?: No HPI Annual PE HPI Details Patient is 83-year-old female this is physical exam appointment Patient have mixed incontinence she is requesting help she has never taken any medication She wears pads during the day, I am starting her on [facility] we will book a telemedicine visit in 3 weeks to see how she is responding to medication She had aortic valve replaced and is doing well Hypothyroidism: Patient is to continue levothyroxine 100 mcg TSH is stable Continue atorvastatin 40 mg for lipid control GERD was stable with omeprazole Anxiety and depression is stable with sertraline 100 mg patient is tolerating medication no side effects She is seeing Dr. Quevedo and getting clonazepam through him for dizziness she tells me Patient have a history of stroke after that her balance is not good, she uses cane for ambulation Patient had bone density done last year fall, which showed osteopenia, currently she is going for exercises at [employer] [facility] Follow-up 4 months [facility] Medical History Left bundle branch block Closed fracture of metatarsal bone of right foot Right foot pain Heart murmur Bladder disorder Lipid disorder Dyspepsia Anxiety, generalized Depression, major, severe recurrence Other specified hypothyroidism Ischemic stroke History of stroke Surgical History Status post transcatheter aortic valve replacement (TAVR) using bioprosthesis Right-sided lacunar infarction Hx of cholecystectomy History of hysterectomy H/O: hysterectomy History of cholecystectomy Family History Mother No problems noted. Father No problems noted. Father No problems noted. Mother Stroke Brother No problems noted. Sister No problems noted. Sister No problems noted. Sister No problems noted. Son No problems noted. Son No problems noted. Social History Housing: House Alcohol intake: never Patient Tobacco Use Status: Former Tobacco user (quit over 50 years ago ) e-Cigarette/Vaping Use: Never Used Second Hand Smoke Exposure: No service: No Current occupational status: retired Cognitive needs: No Hearing needs: No Vision needs: Yes Questionnaire Thrive Questionnaire Date Thrive assessed: 12/13/22 ADELFO-7 AMB Questionnaire ADELFO-7 Date ADELFO - 7 assessed: 12/13/22 Source: Developed by Drs. Fortino Franklin, Elda Cotto, Gurdeep Jones and colleagues, with an educational david from [employer]. Review of Systems Const Denies chills, Denies fever(s) and Denies headache(s) Eyes Denies blurry vision ENT Denies headache(s), Denies nasal discharge, Denies nasal obstruction, Denies odynophagia and Denies sinus pain Card Denies chest pain at rest and Denies chest pain with activity Resp Denies cough and Denies hemoptysis GI Denies diarrhea, Denies odynophagia, Denies vomiting and Denies hematemesis Reports as per HPI Skin/Breast Reports as per HPI Neuro Denies Neuro-related abnormal movements, Denies Abnormal speech present and Denies headache(s) Psych Denies mood swings and Denies paranoia Endo Reports as per HPI Jagdish/Lymph Reports as per HPI Aller/Immun Reports as per HPI Physical exam (Primary Care) Vital Signs: Last Vital Signs Pulse 65 01/16/24 10:59 BP 110/54 L 01/16/24 10:59 Pulse Ox 93 01/16/24 10:59 Oxygen Delivery Method Room Air 01/16/24 10:59 BMI result Body Mass Index 20.8 Tobacco/Smoking Status: Tobacco use Status Tobacco use date assessed 01/16/24 01/16/24 11:01 Patient Tobacco Use Status Former Tobacco user (quit 01/16/24 11:01 over 50 years ago ) e-Cigarette/Vaping Use Never Used 01/16/24 11:01 Thrive Assessment: Date of Thrive Assessment Date Thrive assessed 12/13/22 01/16/24 11:01 Const General: cooperative, comfortable and no acute distress Orientation/consciousness: patient oriented x3 HENMT Head: Yes normocephalic and Yes atraumatic Eyes General: appearance normal, both eyes and all related structures Pupils: Equal, round and reactive pupils present EOM: EOMs intact bilaterally Neck Neck: Yes supple and No lymphadenopathy Thyroid: Thyroid normal Lymphatic: no lymphadenopathy noted Chest Breast/axilla palpation: normal palpation of the breasts Resp Effort & Inspection: normal respiratory effort and able to speak in complete sentences Auscultation: clear to auscultation bilaterally Cardio Heart sounds: S1 normal heart sound present and S2 normal heart sound present GI Palpation (GI): Soft to palpation and nontender Auscultation: normal bowel sounds General: Yes no CVA tenderness Back/Spine/Pelvis Back: no CVA tenderness Skin General skin exam: elasticity normal and turgor normal Neuro General: patient oriented x3 and gait normal Cranial nerves: Yes Equal, round and reactive pupils present Speech: No Abnormal speech present Extrem General: Yes normal exam except as noted and No edema Assessment and Plan Assessment & Plan (1) Encounter for general adult medical examination with abnormal findings: Code(s): Z00.01 - Encounter for general adult medical examination with abnormal findings (2) Depression, major, severe recurrence: Code(s): F33.2 - Major depressive disorder, recurrent severe without psychotic features Qualifiers: Psychotic features: without psychotic features Qualified Code(s): F33.2 - Major depressive disorder, recurrent severe without psychotic features (3) Anxiety, generalized: Code(s): F41.1 - Generalized anxiety disorder (4) Lipid disorder: Code(s): E78.9 - Disorder of lipoprotein metabolism, unspecified (5) Dyspepsia: Code(s): R10.13 - Epigastric pain (6) Status post transcatheter aortic valve replacement (TAVR) using bioprosthesis: Code(s): Z95.3 - Presence of xenogenic heart valve (7) Dizziness: Code(s): R42 - Dizziness and giddiness (8) Other specified hypothyroidism: Code(s): E03.8 - Other specified hypothyroidism (9) Lipid disorder: Code(s): E78.9 - Disorder of lipoprotein metabolism, unspecified (10) Bladder disorder: Code(s): N32.9 - Bladder disorder, unspecified (11) LFT elevation: Code(s): R79.89 - Other specified abnormal findings of blood chemistry (12) Ischemic stroke: Code(s): I63.9 - Cerebral infarction, unspecified Plan Patient is 83-year-old female this is physical exam appointment Patient have mixed incontinence she is requesting help she has never taken any medication She wears pads during the day, I am starting her on [facility] we will book a telemedicine visit in 3 weeks to see how she is responding to medication She had aortic valve replaced and is doing well Hypothyroidism: Patient is to continue levothyroxine 100 mcg TSH is stable Continue atorvastatin 40 mg for lipid control GERD was stable with omeprazole Anxiety and depression is stable with sertraline 100 mg patient is tolerating medication no side effects She is seeing Dr. Quevedo and getting clonazepam through him for dizziness she tells me Patient have a history of stroke after that her balance is not good, she uses cane for ambulation Patient had bone density done last year fall, which showed osteopenia, currently she is going for exercises at [employer] [facility] Follow-up 4 months Orders: Orders Complete Blood Count Auto Diff Today E03.8 - Other specified hypothyroidism, E78.9 - Disorder of lipoprotein metabolism, unspecified, F33.2 - Major depressive disorder, recurrent severe without psychotic features, F41.1 - Generalized anxiety disorder, I63.9 - Cerebral infarction, unspecified, N32.9 - Bladder disorder, unspecified, R42 - Dizziness and giddiness TSH reflex Free T4 Today E03.8 - Other specified hypothyroidism, E78.9 - Disorder of lipoprotein metabolism, unspecified, F33.2 - Major depressive disorder, recurrent severe without psychotic features, F41.1 - Generalized anxiety disorder, I63.9 - Cerebral infarction, unspecified, N32.9 - Bladder disorder, unspecified, R42 - Dizziness and giddiness Vitamin B12 Today E03.8 - Other specified hypothyroidism, E78.9 - Disorder of lipoprotein metabolism, unspecified, F33.2 - Major depressive disorder, recurrent severe without psychotic features, F41.1 - Generalized anxiety disorder, I63.9 - Cerebral infarction, unspecified, N32.9 - Bladder disorder, unspecified, R42 - Dizziness and giddiness Comprehensive [place]. Panel Fast Today E03.8 - Other specified hypothyroidism, E78.9 - Disorder of lipoprotein metabolism, unspecified, F33.2 - Major depressive disorder, recurrent severe without psychotic features, F41.1 - Generalized anxiety disorder, I63.9 - Cerebral infarction, unspecified, N32.9 - Bladder disorder, unspecified, R42 - Dizziness and giddiness Lipid Panel Today E03.8 - Other specified hypothyroidism, E78.9 - Disorder of lipoprotein metabolism, unspecified, F33.2 - Major depressive disorder, recurrent severe without psychotic features, F41.1 - Generalized anxiety disorder, I63.9 - Cerebral infarction, unspecified, N32.9 - Bladder disorder, unspecified, R42 - Dizziness and giddiness Vitamin D 25-OH (D2 and D3) Today E03.8 - Other specified hypothyroidism, E78.9 - Disorder of lipoprotein metabolism, unspecified, F33.2 - Major depressive disorder, recurrent severe without psychotic features, F41.1 - Generalized anxiety disorder, I63.9 - Cerebral infarction, unspecified, N32.9 - Bladder disorder, unspecified, R42 - Dizziness and giddiness Medications: New solifenacin (Vesicare) 5 mg PO DAILY 30 tabs 0RF Urine incontinence Coding Level of Care Code Est Pt Prev Care >65y(90250) Diagnoses Encounter for general adult medical examination with abnormal findings Z00.01 Severe episode of recurrent major depressive disorder, without psychotic features F33.2 Psychotic features: without psychotic features Anxiety, generalized F41.1 Lipid disorder E78.9 Dyspepsia R10.13 Status post transcatheter aortic valve replacement (TAVR) using bioprosthesis Z95.3 Dizziness R42 Other specified hypothyroidism E03.8 Bladder disorder N32.9 LFT elevation R79.89 Ischemic stroke I63.9
== END 2024-01-16 11:58 | disposition home or self-care (01) ==
PROVIDERS: PCP Internal Medicine; Visit Provider Internal Medicine
DX: Z00.01 Encounter for general adult medical examination with abnormal findings (principal); F33.2 Major depressive disorder, recurrent severe without psychotic features; Z86.73 Personal history of transient ischemic attack (TIA), and cerebral infarction without residual deficits; N32.9 Bladder disorder, unspecified; E78.9 Disorder of lipoprotein metabolism, unspecified; F41.1 Generalized anxiety disorder; R10.13 Epigastric pain; Z95.3 Presence of xenogenic heart valve; R42 Dizziness and giddiness; E03.8 Other specified hypothyroidism; R79.89 Other specified abnormal findings of blood chemistry
CPT/HCPCS: 99213; 99397

== ENCOUNTER → 2024-02-08 10:51 | Outpatient (REF) | payer MEDICARE, SELFPAY ==
--- NOTE | 2024-02-08 10:53 | HM_ITS ---
Conclusion: 1. Patient was monitored for total period of 3 days and 2 hours 2. Baseline was normal sinus rhythm with average heart rate of 59 beats per minute 3. Frequent sinus bradycardia noted with 52% of time heart rate below 60 beats per minute with no significant pauses noted 4. Frequent PVCs noted with total burden of about 11% most of which were isolated 5. No patient reported events MTDD
== END ==
LOC: HO.CARD 10:51
PROVIDERS: PCP Internal Medicine; Visit Provider Internal Medicine
DX: I49.8 Other specified cardiac arrhythmias (principal); I44.7 Left bundle-branch block, unspecified
CPT/HCPCS: 93242

== ENCOUNTER → 2024-02-08 10:53 | Outpatient (BNV) | payer MEDICARE, SELFPAY | PROVIDERS: PCP Internal Medicine; Visit Provider Internal Medicine Cardiovascular Disease | DX: I49.3 Ventricular premature depolarization (principal) | CPT/HCPCS: 93244 ==

== ENCOUNTER 2024-02-20 13:00 | Outpatient (AMB) | payer MEDICARE, SELFPAY ==
--- NOTE | 2024-02-20 13:02 | MHC.OFFVIS ---
Intake Vital Signs 02/20/24 13:05 Height 5 ft 1 in Weight 118 lb 2.684 oz BMI 22.3 BP 112/70 Blood Pressure Location Lt brachial Position Sitting Pulse 72 Intake Visit Reasons: follow up holter Intake Note: follow up holter pt feels good Allergies No Known Allergies Allergy (Verified 01/16/24 10:59) HPI HPI Comments History of Present Illness Details 83-year-old female presents today for a follow-up after holter. She reports she has been doing well since last visit. She denies any chest pains, shortness of breath, dizziness, palpitations, or swelling. Medical history of TAVR, ischemic stroke, and lipid disorder She is compliant with medications. [facility] Medical History (Updated 02/20/24 @ 13:23 by Cherise Martinez NP) PVCs (premature ventricular contractions) Left bundle branch block Closed fracture of metatarsal bone of right foot Right foot pain Heart murmur Bladder disorder Lipid disorder Dyspepsia Anxiety, generalized Depression, major, severe recurrence Other specified hypothyroidism Ischemic stroke History of stroke Surgical History Status post transcatheter aortic valve replacement (TAVR) using bioprosthesis Right-sided lacunar infarction Hx of cholecystectomy History of hysterectomy H/O: hysterectomy History of cholecystectomy Family History Mother No problems noted. Father No problems noted. Father No problems noted. Mother Stroke Brother No problems noted. Sister No problems noted. Sister No problems noted. Sister No problems noted. Son No problems noted. Son No problems noted. Social History Housing: House Alcohol intake: never Patient Tobacco Use Status: Former Tobacco user (quit over 50 years ago ) e-Cigarette/Vaping Use: Never Used Second Hand Smoke Exposure: No service: No Current occupational status: retired Cognitive needs: No Hearing needs: No Vision needs: Yes Review of Systems Const Denies weakness ENT Denies dizziness Card Denies chest pain, Denies chest pain with activity, Denies syncope, Denies rapid heart rate, Denies pedal edema, Denies edema, Denies leg edema, Denies lightheadedness, Denies palpitations, Denies dyspnea, Denies dyspnea on exertion and Denies orthopnea Resp Denies cough, Denies dyspnea and Denies dyspnea on exertion GI Denies hematochezia and Denies change in stool character Musc Denies abnormal gait, Denies muscle cramps, Denies muscle weakness, Denies numbness, Denies radiating pain into limb and Denies tingling Neuro Denies abnormal gait, Denies dizziness, Denies syncope, Denies numbness, Denies tingling and Denies weakness Endo Denies palpitations Physical Exam Vital Signs: Last Vital Signs Pulse 72 02/20/24 13:05 BP 112/70 02/20/24 13:05 BMI result Body Mass Index 22.3 Assessment & Plan Assessment & Plan (1) PVCs (premature ventricular contractions): Code(s): I49.3 - Ventricular premature depolarization (2) Status post transcatheter aortic valve replacement (TAVR) using bioprosthesis: Code(s): Z95.3 - Presence of xenogenic heart valve Plan Holter showed PVCs with a burden of 11%. Average rate of 59 bpm. She is already on metoprolol succinate 12.5mg. Last echo in Aug 2023 showed normal LV EF of 55-65%. Discussed avoidance of triggers such as caffeine products, poor hydration, poor sleep, and stress. Prophylactic antibiotics prior to dental procedures discussed. Patient reports understanding. Sent RX Medications: New amoxicillin take 4 caps (2,000 mg) 30 to 60 minutes before procedure 2,000 mg (4 x 500 mg) PO ONCE 4 caps 1RF Coding Level of Care Code Est Pt Level 3 (31201) Diagnoses PVCs (premature ventricular contractions) I49.3 Status post transcatheter aortic valve replacement (TAVR) using bioprosthesis Z95.3
[2024-02-20 13:05] VITALS: BP 112/70; PULSE 72; BMI 22.3
== END 2024-02-20 13:27 | disposition home or self-care (01) ==
PROVIDERS: PCP Internal Medicine; Visit Provider Nurse Practitioner
DX: I49.3 Ventricular premature depolarization (principal); Z95.3 Presence of xenogenic heart valve
CPT/HCPCS: 99213

== ENCOUNTER → 2024-02-20 13:00 | Outpatient (BNVA) | payer MEDICARE, SELFPAY | PROVIDERS: PCP Internal Medicine; Visit Provider Nurse Practitioner | DX: I49.3 Ventricular premature depolarization (principal); Z95.3 Presence of xenogenic heart valve | CPT/HCPCS: 99212 ==

== ENCOUNTER → 2024-04-15 13:14 | Outpatient (REF) | payer MEDICARE, SELFPAY ==
--- NOTE | 2024-04-15 13:18 | HM_ITS ---
Conclusion 1. Baseline was normal sinus rhythm with average heart of 57 beats per minute 2. No significant pauses noted but frequent sinus bradycardia noted with total burden of 52% 3. Frequent isolated PVCs noted with total burden of 15.5% 4. No patient reported events MTDD
== END ==
LOC: HO.CARD 13:14
PROVIDERS: PCP Internal Medicine; Visit Provider Registered Nurse
DX: I63.40 Cerebral infarction due to embolism of unspecified cerebral artery (principal)
CPT/HCPCS: 93225

== ENCOUNTER → 2024-04-15 13:18 | Outpatient (BNV) | payer MEDICARE, SELFPAY | PROVIDERS: PCP Internal Medicine; Visit Provider Internal Medicine Cardiovascular Disease | DX: R00.1 Bradycardia, unspecified (principal) | CPT/HCPCS: 93227 ==

== ENCOUNTER 2024-04-16 08:20 | Outpatient (REF) | payer MEDICARE, SELFPAY ==
[2024-04-16 10:47] LABS: MANUAL DIFF FLAG NO
[2024-04-16 10:59] LABS: Basophils Absolute Auto 0.1 X10*3/uL (0.0-0.2); Basophils Percent Auto 1.2 % (0-2); Eosinophils Absolute Auto 1.1 X10*3/uL (0.0-0.4); Eosinophils Percent Auto 16.5 % (0-4); Hematocrit 37.2 % (37.0-47.0); Hemoglobin 11.9 g/dl (12.0-16.0); Imm Gran Abs Auto 0.02 X10*3/uL (0.00-0.03); Imm Gran Pct Auto 0.3 % (0.0-0.4); Lymphocytes Absolute Auto 1.6 X10*3/uL (1.2-4.9); Lymphocytes Percent Auto 23.8 % (20-40); Mean Corpuscular Hemoglobin 31.2 pg (27.0-33.0); Mean Corpuscular Volume 97.6 fL (80.0-98.0); Mean Platelet Volume 11.2 fL (9.4-12.3); Monocytes Absolute Auto 0.7 X10*3/uL (0.1-1.2); Monocytes Percent Auto 9.8 % (2-11); Neutrophils Absolute Auto 3.2 x10*3/uL (2.0-8.3); Neutrophils Percent Auto 48.4 % (45-73); Platelet Count 182 X10*3/uL (160-400); Red Blood Count 3.81 X10*6/uL (4.20-5.50); Red Cell Distribution Width 14.2 % (11.0-16.0); White Blood Count 6.6 X10*3/uL (4.8-10.8)
[2024-04-16 11:17] LABS: Alanine Aminotransferase 11 U/L (0-31); Albumin Level 3.3 g/dL (3.5-5.0); Alkaline Phosphatase 99 U/L (39-117); Anion Gap 11 (12-20); Aspartate Amino Transferase 17 U/L (5-31); Bilirubin Total 0.3 mg/dL (0.0-1.0); Blood Urea Nitrogen 18 mg/dL (9-16); Calcium 8.5 mg/dL (8.4-10.2); Carbon Dioxide 28 mmol/L (22-29); Chloride 110 mmol/L (96-108); Cholesterol 148 mg/dL (<200); Estimated Glomerular Filt Rate 51; Glucose Fasting 86 mg/dL (60-99); HDL Cholesterol 42 mg/dL (>40); LDL Cholesterol Calculated 92 mg/dL (<100); Potassium 4.1 mmol/L (3.3-5.1); Sodium 145 mmol/L (135-145); Total Protein 5.9 g/dL (6.5-8.0); Triglycerides 74 mg/dL (<150)
[2024-04-16 11:33] LABS: TSH reflex Free T4 1.17 uIU/mL (0.32-4.0)
[2024-04-16 11:36] LABS: Vitamin B12 313 pg/mL (200-900)
[2024-04-21 16:18] LABS: Vitamin D 25-OH, D2 <4 ng/mL; Vitamin D 25-OH, D3 19 ng/mL; Vitamin D 25-OH, Total 19 ng/mL (30-100)
== END 2024-04-16 08:21 | disposition home or self-care (01) ==
LOC: HO.HMGCLDS 08:20
PROVIDERS: PCP Internal Medicine; Visit Provider Internal Medicine
DX: R42 Dizziness and giddiness (principal); E03.8 Other specified hypothyroidism; F33.2 Major depressive disorder, recurrent severe without psychotic features; F41.1 Generalized anxiety disorder; E78.9 Disorder of lipoprotein metabolism, unspecified; N32.9 Bladder disorder, unspecified; Z86.73 Personal history of transient ischemic attack (TIA), and cerebral infarction without residual deficits
CPT/HCPCS: 36415; 80053; 80061; 82306; 82607; 84443; 85025

== ENCOUNTER 2024-05-14 10:16 | Outpatient (AMB) | payer MEDICARE, SELFPAY ==
[2024-05-14 10:18] VITALS: BP 118/68; PULSE 72; O2SAT 93; BMI 22.2
--- NOTE | 2024-05-14 10:18 | MHC.PC.OV ---
Vital Signs 05/14/24 10:18 Height 5 ft 1 in Weight 117 lb 8 oz BMI 22.2 BP 118/68 Blood Pressure Location Lt brachial Position Sitting Pulse 72 Pulse Source Pulse Oximeter Pulse Oximetry (%) 93 Oxygen Delivery Method Room Air Intake Visit Reasons: General Health 4 m follow-up Allergies No Known Allergies Allergy (Verified 05/14/24 10:19) Medication List - Last Reconciled 05/14/24 by Jae Arteaga MD aspirin (Adult Low Dose Aspirin) 81 mg PO DAILY 90 days atorvastatin 40 mg PO DAILY 90 days clonazepam 0.5 mg PO DAILY PRN ketoconazole 2% 1 appl topical DAILY ketorolac 0.5% 0 drps ophthalmic (eye) levothyroxine 100 mcg PO DAILY 90 days metoprolol succinate ER 12.5 mg (1/2 x 25 mg) PO DAILY omeprazole 20 mg PO DAILY 90 days sertraline 100 mg PO DAILY 90 days solifenacin (Vesicare) 5 mg PO DAILY Tobacco use date assessed: 05/14/24 Fall risk assessment: No Falls in past year Last assessed Fall Risk: 05/14/24 Dental Screening Dental Screen Date: 05/14/24 Did you have a dental visit in the last 12 months?: Yes Did you have a dental problem in the last 6 months where you did not have access to dental care?: No Was dental information given to patient?: Patient has dentist [facility] 4 m follow-up HPI Details Patient is 84-year-old female came for regular follow-up appointment Patient would like to fill in MOLST form Patient is declared herself DNR today She has developed fungal rash around and in umbilical area I have sent Lotrisone cream for her she is to apply little bit of cream at night until rash is healed Brother who is in 90s was diagnosed recently with brain tumor And her is not doing well at home as well Patient have mixed incontinence she tried VESIcare which did not help her so she stopped She had aortic valve replaced and is doing well Hypothyroidism: Patient is to continue levothyroxine 100 mcg TSH is stable Continue atorvastatin 40 mg for lipid control, refill sent GERD was stable with omeprazole Anxiety and depression is stable with sertraline 100 mg patient is tolerating medication no side effects She is seeing Dr. Quevedo and getting clonazepam through him for dizziness she tells me Patient have a history of stroke after that her balance is not good, she uses cane for ambulation Patient had bone density done last year fall, which showed osteopenia, currently she is going for exercises at [employer] Prevnar 20 vaccine was administered today Follow-up 4 months PFS Medical History PVCs (premature ventricular contractions) Left bundle branch block Closed fracture of metatarsal bone of right foot Right foot pain Heart murmur Bladder disorder Lipid disorder Dyspepsia Anxiety, generalized Depression, major, severe recurrence Other specified hypothyroidism Ischemic stroke History of stroke Surgical History Status post transcatheter aortic valve replacement (TAVR) using bioprosthesis Right-sided lacunar infarction Hx of cholecystectomy History of hysterectomy H/O: hysterectomy History of cholecystectomy Family History Mother No problems noted. Father No problems noted. Father No problems noted. Mother Stroke Brother No problems noted. Sister No problems noted. Sister No problems noted. Sister No problems noted. Son No problems noted. Son No problems noted. Social History Housing: House Alcohol intake: never Patient Tobacco Use Status: Former Tobacco user (quit over 50 years ago ) e-Cigarette/Vaping Use: Never Used Second Hand Smoke Exposure: No service: No Current occupational status: retired Cognitive needs: No Hearing needs: No Vision needs: Yes Questionnaire PHQ-9 Over the last 2 weeks, how often have you been bothered by any of the following problems? 1. Little interest or pleasure in doing things: several days 2. Feeling down, depressed, or hopeless: several days 3. Trouble falling or staying asleep, or sleeping too much: several days 4. Feeling tired or having little energy: several days 5. Poor appetite or overeating: several days 6. Feeling bad about yourself - or that you are a failure or have let yourself or your family down: several days 7. Trouble concentrating on things, such as reading the newspaper or watching television: several days 8. Moving or speaking so slowly that other people could have noticed. Or the opposite - being so fidgety or restless that you have been moving around a lot more than usual: not at all 9. Thoughts that you would be better off or of hurting yourself in some way: not at all Total score: 7 Depression Screening Interpretation: Negative Depression Screening Done: Yes 49702 - PHQ-9 Billing: Yes Source: Developed by Drs. Fortino Franklin, Elda Cotto, Gurdeep Jones and colleagues, with an educational david from [employer]. Thrive Questionnaire Date Thrive assessed: 05/14/24 I am a: Patient What is your living situation today?: I have a steady place to live Within the past 12 months, did the food you bought not last and you didn't have the money to get more?: Never true Within the past 12 months, did you worry whether your food would run out before you got money to buy more?: Never true Do you have trouble paying for medicines?: No Do you have trouble getting transportation to medical appointments?: No Do you have trouble paying your heating and electricity bill?: No Do you have trouble taking care of your child, family member or friend?: No Do you have trouble with day-to-day activities such as bathing, preparing meals, shopping, managing finances, etc.?: No Are you currently unemployed and looking for a job?: No Are you interested in more education?: No Please select the resources that you would like help with: None Currently or been in a relationship where the following occur: no concerns reported THRIVE Score: 0 AUDIT C Alcohol Use Questionnaire (AUDIT-C) 1. How often do you have a drink containing alcohol?: Never 3. How often do you have six or more drinks on one occasion?: Never Total Score: 0 Score Reviewed/Action Taken: Yes ADELFO-7 AMB Questionnaire ADELFO-7 Date ADELFO - 7 assessed: 05/14/24 Feeling nervous, anxious, or on edge: 0 = Not at all Not being able to stop or control worryin = Not at all Worrying too much about different things: 0 = Not at all Trouble relaxin = Not at all Being so restless that it is hard to sit still: 0 = Not at all Becoming easily annoyed or irritable: 0 = Not at all Feeling afraid as if something awful might happen: 0 = Not at all Total ADELFO-7 score (0-4 normal; 5-9 mild; 10-14 moderate; 15-21 severe): 0 Source: Developed by Drs. Fortino Franklin, Elda Cotto, Gurdeep oJnes and colleagues, with an educational david from [employer]. ADELFO-7 Assessment Billing ADELFO-7 Assessment Tool: ADELFO-7 Assessment 92970 Review of Systems Const Denies chills and Denies fever(s) ENT Denies epistaxis and Denies nasal discharge Card Denies chest pain Resp Denies chest congestion, Denies cough and Denies hemoptysis GI Denies diarrhea and Denies nausea Skin/Breast Denies rash Neuro Reports no additional complaints Psych Reports no additional complaints Endo Reports no additional complaints Physical exam (Primary Care) Vital Signs: Last Vital Signs Pulse 72 05/14/24 10:18 BP 118/68 05/14/24 10:18 Pulse Ox 93 05/14/24 10:18 Oxygen Delivery Method Room Air 05/14/24 10:18 BMI result Body Mass Index 22.2 Tobacco/Smoking Status: Tobacco use Status Tobacco use date assessed 05/14/24 05/14/24 10:21 Patient Tobacco Use Status Former Tobacco user (quit 05/14/24 10:21 over 50 years ago ) e-Cigarette/Vaping Use Never Used 05/14/24 10:21 PHQ-9: PHQ-9 Score PHQ-9: Total score 7 05/14/24 10:41 Depression Screening Interpretation: Negative Thrive Assessment: Date of Thrive Assessment Date Thrive assessed 05/14/24 05/14/24 10:26 Currently or been in a relationship where the following occur: no concerns reported Forms completed: MOLST Time spent: 1-15 minutes, not on file Actual minutes spent: 10 Const General: cooperative, comfortable and no acute distress Orientation/consciousness: patient oriented x3 HENMT Head: Yes normocephalic Eyes General: appearance normal, both eyes and all related structures Neck Neck: Yes supple Resp Effort & Inspection: normal respiratory effort, no cough and no stridor Cardio Rhythm: regular rhythm Heart sounds: S1 normal heart sound present and S2 normal heart sound present Skin General skin exam: turgor normal Neuro General: patient oriented x3, tone normal and moves all extremities Extrem Right lower extremity: no edema Left lower extremity: no edema Immunizations pneumoc 20-cinthya conj-dip cr(PF) 0.5 mL IM syringe Performing Provider: Jae Arteaga MD Performing Location: [facility] – [place] [facility] Administered by: Jung Brice CMA on 05/14/24 10:42 Dose Route Admin Location Dispensed Lot Number Expiration Date NDC [employer] 0.5 mL IM Left Deltoid 0.5 mL [id number] 07/19/25 [id number] [employer] VIS Given Date VIS Provided VIS Publication Date 05/14/24 Single Vaccine 24 Eligibility Eligibility Date Funding Source Not VFC Eligible 05/14/24 Private Assessment and Plan Assessment & Plan (1) Other specified hypothyroidism: Code(s): E03.8 - Other specified hypothyroidism (2) Lipid disorder: Code(s): E78.9 - Disorder of lipoprotein metabolism, unspecified (3) Bladder disorder: Code(s): N32.9 - Bladder disorder, unspecified (4) Tinea corporis: Code(s): B35.4 - Tinea corporis (5) Depression, major, severe recurrence: Code(s): F33.2 - Major depressive disorder, recurrent severe without psychotic features Qualifiers: Psychotic features: without psychotic features Qualified Code(s): F33.2 - Major depressive disorder, recurrent severe without psychotic features (6) Anxiety, generalized: Code(s): F41.1 - Generalized anxiety disorder (7) Lipid disorder: Code(s): E78.9 - Disorder of lipoprotein metabolism, unspecified (8) Dyspepsia: Code(s): R10.13 - Epigastric pain (9) Status post transcatheter aortic valve replacement (TAVR) using bioprosthesis: Code(s): Z95.3 - Presence of xenogenic heart valve (10) Dizziness: Code(s): R42 - Dizziness and giddiness (11) LFT elevation: Code(s): R79.89 - Other specified abnormal findings of blood chemistry (12) Ischemic stroke: Code(s): I63.9 - Cerebral infarction, unspecified (13) Immunizations incomplete: Code(s): Z28.39 - Other underimmunization status Plan Patient is 84-year-old female came for regular follow-up appointment Patient would like to fill in MOLST form Patient is declared herself DNR today She has developed fungal rash around and in umbilical area I have sent Lotrisone cream for her she is to apply little bit of cream at night until rash is healed Brother who is in 90s was diagnosed recently with brain tumor And her is not doing well at home as well Patient have mixed incontinence she tried VESIcare which did not help her so she stopped She had aortic valve replaced and is doing well Hypothyroidism: Patient is to continue levothyroxine 100 mcg TSH is stable Continue atorvastatin 40 mg for lipid control, refill sent GERD was stable with omeprazole Anxiety and depression is stable with sertraline 100 mg patient is tolerating medication no side effects She is seeing Dr. Quevedo and getting clonazepam through him for dizziness she tells me Patient have a history of stroke after that her balance is not good, she uses cane for ambulation Patient had bone density done last year fall, which showed osteopenia, currently she is going for exercises at [employer] Prevnar 20 vaccine was administered today Follow-up 4 months 46 minute spent in care of this patient including reviewing chart, previous labs, filling MOLST forms Vaccinations, charting Orders: Orders Pneumococcal 20 Immunization Today Z23 - Encounter for immunization Medications: New clotrimazole-betamethasone 1-0.05 % Use little bit around the rash at night until healed 1 appl topical ONCE 45 grams 0RF Umbilical rash 30 days Refilled atorvastatin 40 mg PO DAILY 90 tabs 0RF 90 days Coding Level of Care Code Est Pt Level 5 (81319) Complex EM visit Add On G2211 Diagnoses Other specified hypothyroidism E03.8 Lipid disorder E78.9 Bladder disorder N32.9 Tinea corporis B35.4 Severe episode of recurrent major depressive disorder, without psychotic features F33.2 Psychotic features: without psychotic features Anxiety, generalized F41.1 Dyspepsia R10.13 Status post transcatheter aortic valve replacement (TAVR) using bioprosthesis Z95.3 Dizziness R42 LFT elevation R79.89 Ischemic stroke I63.9 Immunizations incomplete Z28.39 Additional Codes ADELFO-7 Assessment Billing - ADELFO-7 Assessment Tool: ADELFO-7 Assessment 99516 ([id number]) Vital Signs *Quality* - Time spent: 1-15 minutes, not on file ([id number])
== END 2024-05-14 14:39 | disposition home or self-care (01) ==
PROVIDERS: PCP Internal Medicine; Visit Provider Internal Medicine
DX: E78.9 Disorder of lipoprotein metabolism, unspecified (principal); F33.2 Major depressive disorder, recurrent severe without psychotic features; Z86.73 Personal history of transient ischemic attack (TIA), and cerebral infarction without residual deficits; Z23 Encounter for immunization; E03.8 Other specified hypothyroidism; N32.9 Bladder disorder, unspecified; B35.4 Tinea corporis; F41.1 Generalized anxiety disorder; R10.13 Epigastric pain; Z95.3 Presence of xenogenic heart valve; R42 Dizziness and giddiness; R79.89 Other specified abnormal findings of blood chemistry
CPT/HCPCS: 1124F; 90471; 90677; 99215

== ENCOUNTER → 2024-08-13 14:58 | Outpatient (REF) | payer MEDICARE, SELFPAY ==
--- NOTE | 2024-08-13 15:04 | CA_ITS ---
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 The visually estimated ejection fraction is between 60-65%. - Evidence suggests grade II (moderate) diastolic dysfunction. - The left atrium is severely dilated. - A bioprosthetic aortic valve is present. The prosthetic aortic valve appears to be functioning normally. Findings Left Ventricle Normal left ventricular cavity size. There is mildly increased left ventricular wall thickness. The left ventricular systolic function is normal. The visually estimated ejection fraction is between 60-65%. There is no evidence of regional wall motion abnormalities. Evidence suggests grade II (moderate) diastolic dysfunction. There is moderate septal and moderate basal asymmetric hypertrophy. Right Ventricle Normal right ventricular cavity size and systolic function. Atria The left atrium is severely dilated. The right atrium is normal in size. Aortic Valve A bioprosthetic aortic valve is present. The prosthetic aortic valve appears to be functioning normally. Trivial para-valvular regurgitation. Mitral Valve The mitral valve appears normal. There is trace mitral valve regurgitation. There is no mitral valve stenosis. Pulmonic Valve There is trace pulmonic valve regurgitation. Tricuspid Valve Normal tricuspid valve structure. There is mild tricuspid valve regurgitation. There is no evidence of pulmonary hypertension. Great Vessels The asc aorta is normal in size. Venous The inferior vena cava is normal in size and collapses greater than 50% with inspiration. Pericardium/Pleural There is no evidence of pericardial effusion. Prior Study Comparison No significant change compared to prior study dated: 09/18/2023. Measurements 2D Linear Measurements IVSd: 1.38 0.6-0.9/0.6-1.0 cm LVIDd: 2.86 3.9-5.3/4.2-5.9 cm LVIDd Index: 1.85 2.4-3.2/2.2-3.1 cm/m2 LVIDs: 2.14 2.0-3.6 cm LVPWd: 1.24 0.7-1.1 cm Ao Root: 2.70 2.1-3.5 cm LA Diam: 3.10 2.7-3.8/3.0-4.0 cm LAIDs Index: 2.00 1.5-2.3 cm/m2 LV Mass: 146.82 67-162/88-224 g LV Mass Index: 94.72 43-95/49-115 g/m2 LVOT Diam: 1.80 3.0+(-)1.3 cm 2D Systolic Function EF 4C: 60.20 >55% EF 2C: 54.00 >55% EF BiP: 59.00 >55% Mitral Valve MV VTI: 0.45 MV Pk Kun: 1.05 MV Mn Kun: 0.54 MV Pk Grad: 4.00 MV Mn Grad: 1.00 MV Pk E: 0.87 MV PK A: 0.68 MV Decel Time: 391.00 E/A: 1.30 E'Lateral: 8.38 E'Medial: 2.83 E/E' Med: 30.60 E/E' Lat: 10.30 PHT: 115.00 MVA PHT: 1.91 MVA Continuity: 1.28 Decel [place]: 2.21 Aortic Valve AoV Pk Kun: 2.26 AoV Mn Kun: 1.59 AoV VTI: 0.53 AoV Pk Grad: 20.00 Aov Mn Grad: 12.00 EDELMIRA Cont.VTI: 1.08 LVOT LVOT Pk Kun: 0.84 LVOT Mn Kun: 0.61 LVOT VTI: 0.23 LVOT Pk Grad: 3.00 LVOT Mn Grad: 2.00 LVOT Diam: 1.80 LVOT Area: 2.54 Diastolic Function MV Pk E: 0.87 MV Pk A: 0.68 E/A: 1.30 E'Medial: 2.83 E/E' Med: 30.60 E' Laterial: 8.38 E/E' Lat: 10.30 Right Ventricle TAPSE (mm): 28.00 Tricuspid Valve TR Pk Kun: 2.55 TR Pk Grad: 26.00 RA Press: 3.00 RVSP: 29.00 Great Vessels Aorta Ao Root-2D: 2.70 2.0-3.7 cm Ao Asc: 3.20 2.1-3.4 cm Pulmonary Valve PV Pk Kun: 0.84 Peak PV Grad: 3.00 Updated in Other Vendor System with Status of Final Manohar Lawler MD electronically signed on 08/15/2024 8:38:19 AM with status of Final
== END ==
LOC: HO.CARD 14:58
PROVIDERS: PCP Internal Medicine; Visit Provider Internal Medicine Interventional Cardiology
DX: Z95.4 Presence of other heart-valve replacement (principal)
CPT/HCPCS: 93306

== ENCOUNTER → 2024-08-13 15:04 | Outpatient (BNV) | payer MEDICARE, SELFPAY | PROVIDERS: PCP Internal Medicine; Visit Provider Internal Medicine | DX: I36.1 Nonrheumatic tricuspid (valve) insufficiency (principal); I42.2 Other hypertrophic cardiomyopathy; Z95.3 Presence of xenogenic heart valve | CPT/HCPCS: 93306 ==

== ENCOUNTER 2024-08-22 13:26 | Outpatient (AMB) | payer MEDICARE, SELFPAY ==
[2024-08-22 13:40] VITALS: BP 112/60; PULSE 49; BMI 22.5
--- NOTE | 2024-08-22 13:40 | A.OFFVIS_ITS ---
Vital Signs 08/22/24 13:40 Height 5 ft 1 in Weight 119 lb 0.794 oz BMI 22.5 BP 112/60 Blood Pressure Location Lt brachial Position Sitting Pulse 49 L Pulse Source Monitor Intake Visit Reasons: 6 month follow-up Allergies No Known Allergies Allergy (Verified 05/14/24 10:19) Medication List - Last Reconciled 08/22/24 by GAVIN Sullivan aspirin (Adult Low Dose Aspirin) 81 mg PO DAILY 90 days atorvastatin 40 mg PO DAILY 90 days clonazepam 0.5 mg PO DAILY PRN clotrimazole-betamethasone 1-0.05 % 1 appl topical ONCE 30 days ketoconazole 2% 1 appl topical DAILY ketorolac 0.5% 0 drps ophthalmic (eye) levothyroxine 100 mcg PO DAILY 90 days metoprolol succinate ER 12.5 mg (1/2 x 25 mg) PO DAILY omeprazole 20 mg PO DAILY 90 days sertraline 100 mg PO DAILY 90 days solifenacin (Vesicare) 5 mg PO DAILY HPI HPI 6 month follow-up: Details: Carissa is an 84-year-old female past medical history of hyperlipidemia, aortic stenosis status post TAVR, left bundle branch block, PVCs who presents for follow-up. Today she reports that she has been feeling well with no concerning symptoms. She denies having chest discomfort at rest or with activity. She denies heart palpitations, presyncope, syncope, falls. She will have some lightheadedness at times that she says is related to her prior CVA. No shortness of breath, PND, orthopnea or edema. Compliant with meds. [facility] Medical History PVCs (premature ventricular contractions) Left bundle branch block Closed fracture of metatarsal bone of right foot Right foot pain Heart murmur Bladder disorder Lipid disorder Dyspepsia Anxiety, generalized Depression, major, severe recurrence Other specified hypothyroidism Ischemic stroke History of stroke Surgical History Status post transcatheter aortic valve replacement (TAVR) using bioprosthesis Right-sided lacunar infarction Hx of cholecystectomy History of hysterectomy H/O: hysterectomy History of cholecystectomy Family History Mother No problems noted. Father No problems noted. Father No problems noted. Mother Stroke Brother No problems noted. Sister No problems noted. Sister No problems noted. Sister No problems noted. Son No problems noted. Son No problems noted. Social History Housing: House Alcohol intake: never Patient Tobacco Use Status: Former Tobacco user (quit over 50 years ago ) e-Cigarette/Vaping Use: Never Used Second Hand Smoke Exposure: No service: No Current occupational status: retired Cognitive needs: No Hearing needs: No Vision needs: Yes Review of Systems Const All systems reviewed & are unremarkable except as noted in HPI and below Denies weakness ENT Denies dizziness Card Denies chest pain, Denies chest pain with activity, Denies syncope, Denies rapid heart rate, Denies pedal edema, Denies edema, Denies leg edema, Denies lightheadedness, Denies palpitations, Denies dyspnea, Denies dyspnea on exertion and Denies orthopnea Resp Denies cough, Denies dyspnea and Denies dyspnea on exertion GI Denies hematochezia and Denies change in stool character Musc Denies abnormal gait, Denies muscle cramps, Denies muscle weakness, Denies numbness, Denies radiating pain into limb and Denies tingling Neuro Denies abnormal gait, Denies dizziness, Denies syncope, Denies numbness, Denies tingling and Denies weakness Endo Denies palpitations Physical Exam Vital Signs: Last Vital Signs Pulse 49 L 08/22/24 13:40 BP 112/60 08/22/24 13:40 BMI result Body Mass Index 22.5 Const General: cooperative, healthy appearing, comfortable and no acute distress Orientation/consciousness: patient oriented x3 Neck Neck: Yes normal visual inspection Resp Effort & Inspection: normal respiratory effort Auscultation: clear to auscultation bilaterally, no rales, no rhonchi and no wheezes Cardio Jugular venous distension: no JVD Rate: regular rate Rhythm: regular rhythm Heart sounds: S1 normal heart sound present, S2 normal heart sound present, no murmurs and no rubs Neuro General: patient oriented x3 Extrem General: Yes normal to inspection, No no pedal edema and No calf tenderness Psych Appearance: grossly normal Mental Status: mental status grossly normal Speech and movement: Normal speech and movement present Office Procedures EKG Details: Today, read by me, sinus bradycardia, intraventricular conduction delay/left bundle branch block, nonspecific ST abnormality, rate 49, QTC 433 milliseconds [id number], Complete Assessment & Plan Assessment & Plan (1) Status post transcatheter aortic valve replacement (TAVR) using bioprosthesis: Code(s): Z95.3 - Presence of xenogenic heart valve Category: Surgical Plan: History of aortic stenosis, severe. She underwent TAVR procedure 08/21/2023. Cardiac catheterization done 07/03/2023 had shown only minimal luminal irregularities in the LAD, otherwise normal. Her last echocardiogram done 08/13/2024 shows EF 60-65%, grade 2 diastolic dysfunction, bioprosthetic aortic valve functioning normally. Today she reports feeling good with no concerning symptoms. Endocarditis prophylaxis reviewed with her. Continue aspirin and atorvastatin. Cardiology follow-up 6 months, sooner if needed. (2) PVCs (premature ventricular contractions): Code(s): I49.3 - Ventricular premature depolarization Category: Medical Plan: History of PVCs. A Holter monitor was done 02/08/2024 for 3 days showed sinus rhythm with average heart rate 59, 52% heart rate less than 60, frequent PVCs, total burden 11%. She was put on low-dose metoprolol. A repeat Holter done 04/15/2024 showed sinus rhythm with average heart rate 57, 52% less than 60, frequent PVCs 15.5% of time. She denies having any heart palpitations. Unable to further titrate metoprolol due to low resting heart rate. Recent echocardiogram shows normal EF. Will continue current management. Discussed reduction in caffeinated beverages, maintaining good hydration and nutrition. Get adequate rest and activity as tolerated (3) Left bundle branch block: Code(s): I44.7 - Left bundle-branch block, unspecified Category: Medical Plan: Noted on EKGs. Not a new finding. (4) Ischemic stroke: Code(s): I63.9 - Cerebral infarction, unspecified Category: Medical Plan: History of ischemic stroke. No documented evidence of atrial fibrillation. She denies heart palpitations. Two recent Holter monitors as above. (5) Sinus bradycardia: Code(s): R00.1 - Bradycardia, unspecified Category: Medical Plan: As above, asymptomatic. EKG done today showing sinus bradycardia, nonspecific intraventricular conduction delay/ left bundle branch block, rate 49. Pulse recheck done by me using sat monitor with patient's sitting, pulse 54. Plan Time spent on chart review, documentation, interview and assessment Coding Level of Care Code Est Pt Level 4 (32501) Complex EM visit Add On G2211 Diagnoses Status post transcatheter aortic valve replacement (TAVR) using bioprosthesis Z95.3 PVCs (premature ventricular contractions) I49.3 Left bundle branch block I44.7 Ischemic stroke I63.9 Sinus bradycardia R00.1 CPT Codes EKG - CPT: 79708-[id number], Complete ([id number]) Time Spent (min) 28
== END 2024-08-22 14:04 | disposition home or self-care (01) ==
PROVIDERS: PCP Internal Medicine; Visit Provider Nurse Practitioner Family
DX: Z95.3 Presence of xenogenic heart valve (principal); I49.3 Ventricular premature depolarization; I44.7 Left bundle-branch block, unspecified; I63.9 Cerebral infarction, unspecified; R00.1 Bradycardia, unspecified
CPT/HCPCS: 93010; 99214; G2211

== ENCOUNTER → 2024-08-22 13:26 | Outpatient (BNVA) | payer MEDICARE, SELFPAY | PROVIDERS: PCP Internal Medicine; Visit Provider Nurse Practitioner Family | DX: I44.7 Left bundle-branch block, unspecified (principal); I49.3 Ventricular premature depolarization; R00.1 Bradycardia, unspecified; E78.5 Hyperlipidemia, unspecified; Z95.3 Presence of xenogenic heart valve; Z86.73 Personal history of transient ischemic attack (TIA), and cerebral infarction without residual deficits | CPT/HCPCS: 93005; 99212 ==

== ENCOUNTER 2024-09-17 10:20 | Outpatient (REF) | payer MEDICARE, SELFPAY ==
[2024-09-17 13:08] LABS: MANUAL DIFF FLAG NO
[2024-09-17 13:22] LABS: Basophils Percent Auto 1.2 % (0-2); Eosinophils Percent Auto 13.4 % (0-4); Hematocrit 37.7 % (37.0-47.0); Hemoglobin 12.2 g/dl (12.0-16.0); Imm Gran Pct Auto 0.3 % (0.0-0.4); Lymphocytes Percent Auto 17.5 % (20-40); Mean Corpuscular HGB Conc 32.4 g/dl (31.0-35.0); Mean Corpuscular Hemoglobin 31.4 pg (27.0-33.0); Mean Corpuscular Volume 96.9 fL (80.0-98.0); Mean Platelet Volume 10.9 fL (9.4-12.3); Monocytes Percent Auto 9.2 % (2-11); Neutrophils Percent Auto 58.4 % (45-73); Platelet Count 192 X10*3/uL (160-400); Red Blood Count 3.89 X10*6/uL (4.20-5.50); Red Cell Distribution Width 14.4 % (11.0-16.0); White Blood Count 6.5 X10*3/uL (4.8-10.8)
[2024-09-17 13:23] LABS: Basophils Absolute Auto 0.1 X10*3/uL (0.0-0.2); Eosinophils Absolute Auto 0.9 X10*3/uL (0.0-0.4); Imm Gran Abs Auto 0.02 X10*3/uL (0.00-0.03); Lymphocytes Absolute Auto 1.1 X10*3/uL (1.2-4.9); Monocytes Absolute Auto 0.6 X10*3/uL (0.1-1.2); Neutrophils Absolute Auto 3.8 x10*3/uL (2.0-8.3)
[2024-09-17 13:46] LABS: Alanine Aminotransferase 17 U/L (0-31); Albumin Level 3.6 g/dL (3.5-5.0); Alkaline Phosphatase 89 U/L (39-117); Anion Gap 12 (12-20); Aspartate Amino Transferase 26 U/L (5-31); Bilirubin Total 0.4 mg/dL (0.0-1.0); Blood Urea Nitrogen 18 mg/dL (9-16); Calcium 9.3 mg/dL (8.4-10.2); Carbon Dioxide 27 mmol/L (22-29); Chloride 107 mmol/L (96-108); Estimated Glomerular Filt Rate 45; Glucose Random 102 mg/dL (60-115); Sodium 142 mmol/L (135-145); Total Protein 6.4 g/dL (6.5-8.0)
[2024-09-17 14:01] LABS: TSH reflex Free T4 4.85 uIU/mL (0.32-4.0)
[2024-09-17 14:43] LABS: Free T4 (Free Thyroxine) 0.93 ng/dL (0.71-1.85)
== END 2024-09-17 10:21 | disposition home or self-care (01) ==
LOC: HO.HMGCLDS 10:20
PROVIDERS: PCP Internal Medicine; Visit Provider Internal Medicine
DX: E78.9 Disorder of lipoprotein metabolism, unspecified (principal); L98.9 Disorder of the skin and subcutaneous tissue, unspecified; E03.8 Other specified hypothyroidism; R94.4 Abnormal results of kidney function studies; R00.1 Bradycardia, unspecified; F33.2 Major depressive disorder, recurrent severe without psychotic features; R10.13 Epigastric pain; F41.1 Generalized anxiety disorder; I49.3 Ventricular premature depolarization; I44.7 Left bundle-branch block, unspecified; Z95.3 Presence of xenogenic heart valve
CPT/HCPCS: 36415; 80053; 84439; 84443; 85025; 99212

== ENCOUNTER 2024-09-17 10:20 | Outpatient (AMB) | payer MEDICARE, SELFPAY ==
[2024-09-17 10:23] VITALS: BP 112/68; PULSE 49; O2SAT 97; BMI 22.6
--- NOTE | 2024-09-17 10:23 | A.OFFPC_ITS ---
Vital Signs 3 09/17/24 10:23 Height 5 ft 1 in Weight 119 lb 8 oz BMI 22.6 BP 112/68 Blood Pressure Location Rt brachial Position Sitting Pulse 49 L Pulse Source Pulse Oximeter Pulse Oximetry (%) 97 Oxygen Delivery Method Room Air Intake Visit Reasons: General Health 8 m follow-up Allergies No Known Allergies Allergy (Verified 05/14/24 10:19) Medication List - Last Reconciled 09/17/24 by Jae Arteaga MD aspirin (Adult Low Dose Aspirin) 81 mg PO DAILY 90 days atorvastatin 40 mg PO DAILY 90 days clonazepam 0.5 mg PO DAILY PRN clotrimazole-betamethasone 1-0.05 % 1 appl topical ONCE 30 days ketoconazole 2% 1 appl topical DAILY ketorolac 0.5% 0 drps ophthalmic (eye) levothyroxine 100 mcg PO DAILY 90 days metoprolol succinate ER 12.5 mg (1/2 x 25 mg) PO DAILY omeprazole 20 mg PO DAILY 90 days sertraline 100 mg PO DAILY 90 days solifenacin (Vesicare) 5 mg PO DAILY Tobacco use date assessed: 05/14/24 Dental Screening Dental Screen Date: 05/14/24 [facility] General Health 8 m follow-up 2 HPI0 Details Patient is 84-year-old female came for regular follow-up appointment She is doing well offer no new complaints other than a lesion between buttocks which is causing pain And she would like that removed, referral to Dermatology placed Labs are needed, order placed Her brother recently he had a brain tumor Patient have mixed incontinence she tried VESIcare which did not help her so she stopped She had aortic valve replaced and is doing well Hypothyroidism: Patient is to continue levothyroxine 100 mcg TSH is stable Continue atorvastatin 40 mg for lipid control, refill sent GERD was stable with omeprazole Anxiety and depression is stable with sertraline 100 mg patient is tolerating medication no side effects She is seeing Dr. Quevedo and getting clonazepam through him for dizziness she tells me Patient have a history of stroke after that her balance is not good, she uses cane for ambulation Patient had bone density done last year fall, which showed osteopenia, currently she is going for exercises at [employer] [place] [facility] History PVCs (premature ventricular contractions) Left bundle branch block Closed fracture of metatarsal bone of right foot Right foot pain Heart murmur Bladder disorder Lipid disorder Dyspepsia Anxiety, generalized Depression, major, severe recurrence Other specified hypothyroidism Ischemic stroke History of stroke Surgical History Status post transcatheter aortic valve replacement (TAVR) using bioprosthesis Right-sided lacunar infarction Hx of cholecystectomy History of hysterectomy H/O: hysterectomy History of cholecystectomy Family History Mother No problems noted. Father No problems noted. Father No problems noted. Mother Stroke Brother No problems noted. Sister No problems noted. Sister No problems noted. Sister No problems noted. Son No problems noted. Son No problems noted. Social History Housing: House Alcohol intake: never Patient Tobacco Use Status: Former Tobacco user (quit over 50 years ago ) e-Cigarette/Vaping Use: Never Used Second Hand Smoke Exposure: No service: No Current occupational status: retired Cognitive needs: No Hearing needs: No Vision needs: Yes Questionnaire PHQ-9 Over the last 2 weeks, how often have you been bothered by any of the following problems? 1. Little interest or pleasure in doing things: several days 2. Feeling down, depressed, or hopeless: several days 3. Trouble falling or staying asleep, or sleeping too much: several days 4. Feeling tired or having little energy: several days 5. Poor appetite or overeating: several days 6. Feeling bad about yourself - or that you are a failure or have let yourself or your family down: not at all 7. Trouble concentrating on things, such as reading the newspaper or watching television: not at all 8. Moving or speaking so slowly that other people could have noticed. Or the opposite - being so fidgety or restless that you have been moving around a lot more than usual: not at all 9. Thoughts that you would be better off or of hurting yourself in some way: not at all Total score: 5 Depression Screening Interpretation: Negative Depression Screening Done: Yes 14975 - PHQ-9 Billing: Yes Source: Developed by Elda Cross Kurt Kroenke and colleagues, with an educational david from [employer]. Thrive Questionnaire Date Thrive assessed: 09/10/24 I am a: Patient What is your living situation today?: I have a steady place to live Within the past 12 months, did the food you bought not last and you didn't have the money to get more?: Never true Within the past 12 months, did you worry whether your food would run out before you got money to buy more?: Never true Do you have trouble paying for medicines?: No Do you have trouble getting transportation to medical appointments?: No Do you have trouble paying your heating and electricity bill?: No Do you have trouble taking care of your child, family member or friend?: No Do you have trouble with day-to-day activities such as bathing, preparing meals, shopping, managing finances, etc.?: I choose not to answer this question Are you currently unemployed and looking for a job?: No Are you interested in more education?: I choose not to answer this question THRIVE Score: 0 AUDIT C Alcohol Use Questionnaire (AUDIT-C) 1. How often do you have a drink containing alcohol?: Never 2. How many drinks containing alcohol do you have on a typical day when you are drinking?: 1 or 2 3. How often do you have six or more drinks on one occasion?: Never Total Score: 0 ADELFO-7 AMB Questionnaire ADELFO-7 Date ADELFO - 7 assessed: 05/14/24 Feeling nervous, anxious, or on edge: 0 = Not at all Not being able to stop or control worryin = Not at all Worrying too much about different things: 0 = Not at all Trouble relaxin = Not at all Being so restless that it is hard to sit still: 0 = Not at all Becoming easily annoyed or irritable: 0 = Not at all Feeling afraid as if something awful might happen: 0 = Not at all Total ADELFO-7 score (0-4 normal; 5-9 mild; 10-14 moderate; 15-21 severe): 0 Source: Developed by Elda Cross Kurt Kroenke and colleagues, with an educational david from [employer]. Review of Systems Const Denies chills and Denies fever(s) ENT Denies epistaxis and Denies nasal discharge Card Denies chest pain Resp Denies chest congestion, Denies cough and Denies hemoptysis GI Denies diarrhea and Denies nausea Skin/Breast Denies rash Neuro Reports no additional complaints Psych Reports no additional complaints Endo Reports no additional complaints Physical exam (Primary Care) Vital Signs: Last Vital Signs Pulse 49 L 09/17/24 10:23 BP 112/68 09/17/24 10:23 Pulse Ox 97 09/17/24 10:23 Oxygen Delivery Method Room Air 09/17/24 10:23 BMI result Body Mass Index 22.6 Tobacco/Smoking Status: Tobacco use Status Tobacco use date assessed 05/14/24 09/17/24 10:24 Patient Tobacco Use Status Former Tobacco user (quit 09/17/24 10:24 over 50 years ago ) e-Cigarette/Vaping Use Never Used 09/17/24 10:24 Depression Screening Interpretation: Negative Thrive Assessment: Date of Thrive Assessment Date Thrive assessed 09/10/24 09/17/24 10:24 Const General: cooperative, comfortable and no acute distress Orientation/consciousness: patient oriented x3 HENMT Head: Yes normocephalic Eyes General: appearance normal, both eyes and all related structures Neck Neck: Yes supple Resp Effort & Inspection: normal respiratory effort, no cough and no stridor Cardio Heart sounds: S1 normal heart sound present and S2 normal heart sound present Back/Spine/Pelvis Back/spine/pelvis image: 2 1. Small raised skin lesion present without any signs of infection Skin General skin exam: turgor normal Neuro General: patient oriented x3, tone normal and moves all extremities Extrem Right lower extremity: no edema Left lower extremity: no edema Coding Level of Care Code Est Pt Level 4 (44337) Complex EM visit Add On G2211 Diagnoses Lipid disorder E78.9 Skin lesion L98.9 Other specified hypothyroidism E03.8 Decreased GFR R94.4 Sinus bradycardia R00.1 Severe episode of recurrent major depressive disorder, without psychotic features F33.2 Psychotic features: without psychotic features Dyspepsia R10.13 Anxiety, generalized F41.1 PVCs (premature ventricular contractions) I49.3 Left bundle branch block I44.7 Status post transcatheter aortic valve replacement (TAVR) using bioprosthesis Z95.3 Assessment & Plan Assessment & Plan (1) Lipid disorder: Code(s): E78.9 - Disorder of lipoprotein metabolism, unspecified Category: Medical (2) Skin lesion: Code(s): L98.9 - Disorder of the skin and subcutaneous tissue, unspecified Category: Medical (3) Other specified hypothyroidism: Code(s): E03.8 - Other specified hypothyroidism Category: Medical (4) Decreased GFR: Code(s): R94.4 - Abnormal results of kidney function studies Category: Medical (5) Sinus bradycardia: Code(s): R00.1 - Bradycardia, unspecified Category: Medical (6) Depression, major, severe recurrence: Code(s): F33.2 - Major depressive disorder, recurrent severe without psychotic features Category: Medical Qualifiers: Psychotic features: without psychotic features Qualified Code(s): F33.2 - Major depressive disorder, recurrent severe without psychotic features (7) Dyspepsia: Code(s): R10.13 - Epigastric pain Category: Medical (8) Anxiety, generalized: Code(s): F41.1 - Generalized anxiety disorder Category: Medical (9) PVCs (premature ventricular contractions): Code(s): I49.3 - Ventricular premature depolarization Category: Medical (10) Left bundle branch block: Code(s): I44.7 - Left bundle-branch block, unspecified Category: Medical (11) Status post transcatheter aortic valve replacement (TAVR) using bioprosthesis: Code(s): Z95.3 - Presence of xenogenic heart valve Category: Surgical Plan Patient is 84-year-old female came for regular follow-up appointment She is doing well offer no new complaints other than a lesion between buttocks which is causing pain And she would like that removed, referral to Dermatology placed Labs are needed, order placed Her brother recently he had a brain tumor Patient have mixed incontinence she tried VESIcare which did not help her so she stopped She had aortic valve replaced and is doing well Hypothyroidism: Patient is to continue levothyroxine 100 mcg TSH is stable Continue atorvastatin 40 mg for lipid control, refill sent GERD was stable with omeprazole Anxiety and depression is stable with sertraline 100 mg patient is tolerating medication no side effects She is seeing Dr. Quevedo and getting clonazepam through him for dizziness she tells me Patient have a history of stroke after that her balance is not good, she uses cane for ambulation Patient had bone density done last year fall, which showed osteopenia, currently she is going for exercises at [facility] Follow-up December Orders: Orders 2 Comprehensive Met. Panel Today E03.8 - Other specified hypothyroidism, E78.9 - Disorder of lipoprotein metabolism, unspecified, F33.2 - Major depressive disorder, recurrent severe without psychotic features, F41.1 - Generalized anxiety disorder, I44.7 - Left bundle-branch block, unspecified, I49.3 - Ventricular premature depolarization, R10.13 - Epigastric pain, R94.4 - Abnormal results of kidney function studies, Z95.3 - Presence of xenogenic heart valve TSH reflex Free T4 Today E03.8 - Other specified hypothyroidism, E78.9 - Disorder of lipoprotein metabolism, unspecified, F33.2 - Major depressive disorder, recurrent severe without psychotic features, F41.1 - Generalized anxiety disorder, I44.7 - Left bundle-branch block, unspecified, I49.3 - Ventricular premature depolarization, R10.13 - Epigastric pain, R94.4 - Abnormal results of kidney function studies, Z95.3 - Presence of xenogenic heart valve Complete Blood Count Auto Diff Today E03.8 - Other specified hypothyroidism, E78.9 - Disorder of lipoprotein metabolism, unspecified, F33.2 - Major depressive disorder, recurrent severe without psychotic features, F41.1 - Generalized anxiety disorder, I44.7 - Left bundle-branch block, unspecified, I49.3 - Ventricular premature depolarization, R10.13 - Epigastric pain, R94.4 - Abnormal results of kidney function studies, Z95.3 - Presence of xenogenic heart valve Referrals 2 Dermatology Referral L98.9 - Disorder of the skin and subcutaneous tissue, unspecified
== END 2024-09-17 11:17 | disposition home or self-care (01) ==
LOC: HO.HMCC 10:21
PROVIDERS: PCP Internal Medicine; Visit Provider Internal Medicine
DX: E78.9 Disorder of lipoprotein metabolism, unspecified (principal); L98.9 Disorder of the skin and subcutaneous tissue, unspecified; F33.2 Major depressive disorder, recurrent severe without psychotic features; E03.8 Other specified hypothyroidism; R94.4 Abnormal results of kidney function studies; R00.1 Bradycardia, unspecified; R10.13 Epigastric pain; F41.1 Generalized anxiety disorder; I49.3 Ventricular premature depolarization; I44.7 Left bundle-branch block, unspecified; Z95.3 Presence of xenogenic heart valve

== ENCOUNTER 2024-09-30 13:10 | Outpatient (AMB) | payer MEDICARE, SELFPAY ==
[2024-09-30 13:12] VITALS: BP 118/70; PULSE 58; O2SAT 99; BMI 22.4
--- NOTE | 2024-09-30 13:12 | MHC.PC.OV ---
Vital Signs 09/30/24 13:12 Height 5 ft 1 in Weight 118 lb 8 oz BMI 22.4 BP 118/70 Blood Pressure Location Rt brachial Position Sitting Pulse 58 Pulse Source Pulse Oximeter Pulse Oximetry (%) 99 Oxygen Delivery Method Room Air Intake Visit Reasons: confusion/dizziness last week Allergies No Known Allergies Allergy (Verified 09/30/24 13:12) Medication List - Last Reconciled 09/30/24 by Jae Arteaga MD aspirin (Adult Low Dose Aspirin) 81 mg PO DAILY 90 days atorvastatin 40 mg PO DAILY 90 days clonazepam 0.5 mg PO DAILY PRN clotrimazole-betamethasone 1-0.05 % 1 appl topical ONCE 30 days ketoconazole 2% 1 appl topical DAILY ketorolac 0.5% 0 drps ophthalmic (eye) levothyroxine 100 mcg PO DAILY 90 days metoprolol succinate ER 12.5 mg (1/2 x 25 mg) PO DAILY omeprazole 20 mg PO DAILY 90 days sertraline 100 mg PO DAILY 90 days solifenacin (Vesicare) 5 mg PO DAILY Tobacco use date assessed: 09/30/24 Fall risk assessment: No Falls in past year Last assessed Fall Risk: 09/30/24 Dental Screening Dental Screen Date: 09/30/24 Did you have a dental visit in the last 12 months?: No Did you have a dental problem in the last 6 months where you did not have access to dental care?: No Was dental information given to patient?: No HPI confusion/dizziness last week HPI Details Patient is 84-year-old female with a history of stroke Already established with Dr. Quevedo neurologist Taking clonazepam through him Patient says that she was in [employer] and suddenly start will dizzy She had to sit down for 20 minutes before she started feeling better There was no confusion she knew where she is She called her significant other and was taken home Since then she has been feeling fine there is no dizziness Patient is under a lot of stress due to domestic issues On examination today she does not have a positive vertigo test I have written down meclizine on a piece of paper and given it to her, she may get it [id number] and give it a try if it happens again But most importantly she need to talk to Dr. Quevedo about it Patient says that her visual training aide did MRI in August of this year [facility] Medical History PVCs (premature ventricular contractions) Left bundle branch block Closed fracture of metatarsal bone of right foot Right foot pain Heart murmur Bladder disorder Lipid disorder Dyspepsia Anxiety, generalized Depression, major, severe recurrence Other specified hypothyroidism Ischemic stroke History of stroke Surgical History Status post transcatheter aortic valve replacement (TAVR) using bioprosthesis Right-sided lacunar infarction Hx of cholecystectomy History of hysterectomy H/O: hysterectomy History of cholecystectomy Family History Mother No problems noted. Father No problems noted. Father No problems noted. Mother Stroke Brother No problems noted. Sister No problems noted. Sister No problems noted. Sister No problems noted. Son No problems noted. Son No problems noted. Social History Housing: House Alcohol intake: never Patient Tobacco Use Status: Former Tobacco user (quit over 50 years ago ) e-Cigarette/Vaping Use: Never Used Second Hand Smoke Exposure: No service: No Current occupational status: retired Cognitive needs: No Hearing needs: No Vision needs: Yes Questionnaire Thrive Questionnaire Date Thrive assessed: 09/30/24 I am a: Patient What is your living situation today?: I have a steady place to live Within the past 12 months, did the food you bought not last and you didn't have the money to get more?: Never true Within the past 12 months, did you worry whether your food would run out before you got money to buy more?: Never true Do you have trouble paying for medicines?: No Do you have trouble getting transportation to medical appointments?: No Do you have trouble paying your heating and electricity bill?: No Do you have trouble taking care of your child, family member or friend?: No Do you have trouble with day-to-day activities such as bathing, preparing meals, shopping, managing finances, etc.?: I choose not to answer this question Are you currently unemployed and looking for a job?: No Are you interested in more education?: I choose not to answer this question THRIVE Score: 0 AUDIT C Alcohol Use Questionnaire (AUDIT-C) 1. How often do you have a drink containing alcohol?: Never 2. How many drinks containing alcohol do you have on a typical day when you are drinking?: 1 or 2 3. How often do you have six or more drinks on one occasion?: Never Total Score: 0 Score Reviewed/Action Taken: Yes ADELFO-7 AMB Questionnaire ADELFO-7 Date ADELFO - 7 assessed: 05/14/24 Source: Developed by Drs. Fortino Franklin, Elda Cotto, Gurdeep Jones and colleagues, with an educational david from [employer]. Review of Systems Const Denies chills and Denies fever(s) ENT Denies epistaxis and Denies nasal discharge Card Denies chest pain Resp Denies chest congestion, Denies cough and Denies hemoptysis GI Denies diarrhea and Denies nausea Skin/Breast Denies rash Neuro Reports no additional complaints Psych Reports no additional complaints Endo Reports no additional complaints Physical exam (Primary Care) Vital Signs: Last Vital Signs Pulse 58 09/30/24 13:12 BP 118/70 09/30/24 13:12 Pulse Ox 99 09/30/24 13:12 Oxygen Delivery Method Room Air 09/30/24 13:12 BMI result Body Mass Index 22.4 Tobacco/Smoking Status: Tobacco use Status Tobacco use date assessed 09/30/24 09/30/24 13:14 Patient Tobacco Use Status Former Tobacco user (quit 09/30/24 13:14 over 50 years ago ) e-Cigarette/Vaping Use Never Used 09/30/24 13:14 Thrive Assessment: Date of Thrive Assessment Date Thrive assessed 09/30/24 09/30/24 13:21 Const General: cooperative, comfortable and no acute distress Orientation/consciousness: patient oriented x3 HENMT Head: Yes normocephalic Eyes General: appearance normal, both eyes and all related structures Neck Neck: Yes supple Resp Effort & Inspection: normal respiratory effort, no cough and no stridor Cardio Rhythm: regular rhythm Heart sounds: S1 normal heart sound present and S2 normal heart sound present Skin General skin exam: turgor normal Neuro Other: Nonfocal General: patient oriented x3, tone normal and moves all extremities Extrem Right lower extremity: no edema Left lower extremity: no edema Coding Level of Care Code Est Pt Level 3 (12980) Diagnoses Dizziness R42 Assessment & Plan Assessment & Plan (1) Dizziness: Code(s): R42 - Dizziness and giddiness Category: Medical Plan Patient is 84-year-old female with a history of stroke Already established with Dr. 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 Quevedo about it Patient says that her visual training aide did MRI in August of this year
== END 2024-09-30 14:15 | disposition home or self-care (01) ==
PROVIDERS: PCP Internal Medicine; Visit Provider Internal Medicine
DX: R42 Dizziness and giddiness (principal)

== ENCOUNTER → 2024-09-30 13:10 | Outpatient (BNVA) | payer MEDICARE, SELFPAY | PROVIDERS: PCP Internal Medicine; Visit Provider Internal Medicine | DX: R42 Dizziness and giddiness (principal) | CPT/HCPCS: 99212 ==

== ENCOUNTER 2025-01-14 11:26 | Outpatient (AMB) | payer MEDICARE, SELFPAY ==
[2025-01-14 11:30] VITALS: BP 116/68; PULSE 87; TEMP 36.4; O2SAT 94; BMI 22.7
--- NOTE | 2025-01-14 11:30 | MHC.PC.OV ---
Vital Signs 01/14/25 11:30 Height 5 ft 1 in Weight 120 lb 6 oz BMI 22.7 BP 116/68 Blood Pressure Location Lt brachial Position Sitting Pulse 87 Pulse Source Pulse Oximeter Temp 97.6 F Temp Source Oral Pulse Oximetry (%) 94 Oxygen Delivery Method Room Air Intake Visit Reasons: 4 months f/up Allergies No Known Allergies Allergy (Verified 01/14/25 11:34) Medication List - Last Reconciled 01/14/25 by Jae Arteaga MD aspirin (Adult Low Dose Aspirin) 81 mg PO DAILY 90 days atorvastatin 40 mg PO DAILY 90 days clonazepam 0.5 mg PO DAILY PRN clotrimazole-betamethasone 1-0.05 % 1 appl topical ONCE 30 days ketoconazole 2% 1 appl topical DAILY ketorolac 0.5% 0 drps ophthalmic (eye) levothyroxine 100 mcg PO DAILY 90 days metoprolol succinate ER 12.5 mg (1/2 x 25 mg) PO DAILY omeprazole 20 mg PO DAILY 90 days sertraline 100 mg PO DAILY 90 days solifenacin (Vesicare) 5 mg PO DAILY Tobacco use date assessed: 01/14/25 Fall risk assessment: 1 Fall in past year Last assessed Fall Risk: 01/14/25 Dental Screening Dental Screen Date: 01/14/25 Did you have a dental visit in the last 12 months?: No Did you have a dental problem in the last 6 months where you did not have access to dental care?: No Was dental information given to patient?: No HPI 4 months f/up HPI Details Regular follow-up appointment - The patient is an 84-year-old female presenting with thyroid function abnormality. - The patient?s prior evaluation in August showed a slight deviation in thyroid levels, we will repeat TSH level today - Currently taking levothyroxine 100 mcg - urinary incontinence continues, she is taking VESIcare which is not helping, she is requesting further evaluation Urogynecological consultation request placed - The patient queries about the follow-up on a non-cancerous dermatological condition Patient had developed nonhealing sore between gluteus karly and has seen Dermatology she was given a cream On examination today the sore has healed it does have a scab over. - lipid disorder continue atorvastatin - continue metoprolol 12.5 mg for aortic stenosis management through Cardiology - GERD is stable with omeprazole 20 mg - anxiety and depression stable with sertraline 100 mg, she is also on clonazepam through neurology Dr. Quevedo she takes it at night Problem List - Thyroid function abnormality - Urinary Incontinence - Dermatological condition (non-cancerous lesion) - Anxiety about socio-political conditions - lipid disorder - GERD - anxiety and depression Patient Instructions - Proceed with blood tests for thyroid function evaluation today. - Expect contact or a notification regarding a urogynecologist appointment in [place] for incontinence management. - Continue using prescribed topical ointment for the skin lesion; observe for further improvement. - Ensure adequate hydration to support overall health and medication tolerance. Review of Systems - General: No fever no chills - Neurological: No headaches no dizziness - Ear nose throat: No sore throat no hearing difficulty no ear pain - Cardiovascular: No syncope, no chest pain, no palpitations - Gastrointestinal: No nausea vomiting or diarrhea - Endocrine: No polyuria polydipsia no heat intolerance - Genitourinary: No dysuria , no blood in urine Physical Exam General: No acute distress HEENT: No acute findings Neck: Supple Respiratory system: Able to talk in full sentences, no audible wheeze cardiovascular: S1-S2 regular in rate and rhythm Gastrointestinal: No pain Extremities: No new findings 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: Alert awake oriented x3 motor sensory intact Skin: Normal turgor, healed lesion with a little scab, no cancerous findings between gluteus karly [facility] Medical History PVCs (premature ventricular contractions) Left bundle branch block Closed fracture of metatarsal bone of right foot Right foot pain Heart murmur Bladder disorder Lipid disorder Dyspepsia Anxiety, generalized Depression, major, severe recurrence Other specified hypothyroidism Ischemic stroke History of stroke Surgical History Status post transcatheter aortic valve replacement (TAVR) using bioprosthesis Right-sided lacunar infarction Hx of cholecystectomy History of hysterectomy H/O: hysterectomy History of cholecystectomy Family History Mother No problems noted. Father No problems noted. Father No problems noted. Mother Stroke Brother No problems noted. Sister No problems noted. Sister No problems noted. Sister No problems noted. Son No problems noted. Son No problems noted. Social History Housing: House Alcohol intake: never Patient Tobacco Use Status: Former Tobacco user (quit over 50 years ago ) e-Cigarette/Vaping Use: Never Used Second Hand Smoke Exposure: No service: No Current occupational status: retired Cognitive needs: No Hearing needs: No Vision needs: Yes Questionnaire PHQ-9 Over the last 2 weeks, how often have you been bothered by any of the following problems? 1. Little interest or pleasure in doing things: several days 2. Feeling down, depressed, or hopeless: several days 3. Trouble falling or staying asleep, or sleeping too much: several days 4. Feeling tired or having little energy: several days 5. Poor appetite or overeating: several days 6. Feeling bad about yourself - or that you are a failure or have let yourself or your family down: not at all 7. Trouble concentrating on things, such as reading the newspaper or watching television: not at all 8. Moving or speaking so slowly that other people could have noticed. Or the opposite - being so fidgety or restless that you have been moving around a lot more than usual: not at all 9. Thoughts that you would be better off or of hurting yourself in some way: not at all Total score: 5 Depression Screening Interpretation: Negative Depression Screening Done: Yes 07069 - PHQ-9 Billing: Yes Source: Developed by Drs. Fortino Franklin, Elda Cotto, Gurdeep Jones and colleagues, with an educational david from [employer]. Thrive Questionnaire Date Thrive assessed: 01/14/25 I am a: Patient What is your living situation today?: I have a steady place to live Within the past 12 months, did the food you bought not last and you didn't have the money to get more?: Never true Within the past 12 months, did you worry whether your food would run out before you got money to buy more?: Never true Do you have trouble paying for medicines?: No Do you have trouble getting transportation to medical appointments?: No Do you have trouble paying your heating and electricity bill?: No Do you have trouble taking care of your child, family member or friend?: No Do you have trouble with day-to-day activities such as bathing, preparing meals, shopping, managing finances, etc.?: I choose not to answer this question Are you currently unemployed and looking for a job?: No Are you interested in more education?: I choose not to answer this question Currently or been in a relationship where the following occur: No concerns reported THRIVE Score: 0 AUDIT C Alcohol Use Questionnaire (AUDIT-C) 1. How often do you have a drink containing alcohol?: Never 2. How many drinks containing alcohol do you have on a typical day when you are drinking?: 1 or 2 3. How often do you have six or more drinks on one occasion?: Never Total Score: 0 Score Reviewed/Action Taken: Yes ADELFO-7 AMB Questionnaire ADELFO-7 Date ADELFO - 7 assessed: 05/14/24 Source: Developed by Drs. Fortino Franklin, Elda Cotto, Gurdeep Jones and colleagues, with an educational david from [employer]. ADELFO-7 Assessment Billing ADELFO-7 Assessment Tool: ADELFO-7 Assessment 07255 Physical exam (Primary Care) Vital Signs: Last Vital Signs Temp 97.6 F 01/14/25 11:30 Pulse 87 01/14/25 11:30 BP 116/68 01/14/25 11:30 Pulse Ox 94 01/14/25 11:30 Oxygen Delivery Method Room Air 01/14/25 11:30 BMI result Body Mass Index 22.7 Tobacco/Smoking Status: Tobacco use Status Tobacco use date assessed 01/14/25 01/14/25 11:35 Patient Tobacco Use Status Former Tobacco user (quit 01/14/25 11:35 over 50 years ago ) e-Cigarette/Vaping Use Never Used 01/14/25 11:35 PHQ-9: PHQ-9 Score PHQ-9: Total score 5 01/14/25 11:35 Depression Screening Interpretation: Negative Thrive Assessment: Date of Thrive Assessment Date Thrive assessed 01/14/25 01/14/25 11:35 Currently or been in a relationship where the following occur: No concerns reported Coding Level of Care Code Est Pt Level 4 (69064) Complex EM visit Add On G2211 Diagnoses Hypothyroidism, unspecified type E03.9 Hypothyroidism type: unspecified Anxiety, generalized F41.1 Lipid disorder E78.9 Dyspepsia R10.13 Aortic valve stenosis, moderate I35.0 Bladder disorder N32.9 Additional Codes ADELFO-7 Assessment Billing - ADELFO-7 Assessment Tool: ADELFO-7 Assessment 05367 ([id number]) PHQ-9 - 57137 - PHQ-9 Billing: Yes ([id number]) Assessment & Plan Assessment & Plan (1) Hypothyroidism: Code(s): E03.9 - Hypothyroidism, unspecified Category: Medical Qualifiers: Hypothyroidism type: unspecified Qualified Code(s): E03.9 - Hypothyroidism, unspecified (2) Anxiety, generalized: Code(s): F41.1 - Generalized anxiety disorder Category: Medical (3) Lipid disorder: Code(s): E78.9 - Disorder of lipoprotein metabolism, unspecified Category: Medical (4) Dyspepsia: Code(s): R10.13 - Epigastric pain Category: Medical (5) Aortic valve stenosis, moderate: Code(s): I35.0 - Nonrheumatic aortic (valve) stenosis Category: Medical (6) Bladder disorder: Code(s): N32.9 - Bladder disorder, unspecified Category: Medical Plan Regular follow-up appointment - The patient is an 84-year-old female presenting with thyroid function abnormality. - The patient?s prior evaluation in August showed a slight deviation in thyroid levels, we will repeat TSH level today - Currently taking levothyroxine 100 mcg - urinary incontinence continues, she is taking VESIcare which is not helping, she is requesting further evaluation Urogynecological consultation request placed - The patient queries about the follow-up on a non-cancerous dermatological condition Patient had developed nonhealing sore between gluteus karly and has seen Dermatology she was given a cream On examination today the sore has healed it does have a scab over. - lipid disorder continue atorvastatin - continue metoprolol 12.5 mg for aortic stenosis management through Cardiology - GERD is stable with omeprazole 20 mg - anxiety and depression stable with sertraline 100 mg, she is also on clonazepam through neurology Dr. Quevedo she takes it at night Problem List - Thyroid function abnormality - Urinary Incontinence - Dermatological condition (non-cancerous lesion) - Anxiety about socio-political conditions - lipid disorder - GERD - anxiety and depression Patient Instructions - Proceed with blood tests for thyroid function evaluation today. - Expect contact or a notification regarding a urogynecologist appointment in [place] for incontinence management. - Continue using prescribed topical ointment for the skin lesion; observe for further improvement. - Ensure adequate hydration to support overall health and medication tolerance. Orders: Orders TSH reflex Free T4 Today E03.9 - Hypothyroidism, unspecified, E78.9 - Disorder of lipoprotein metabolism, unspecified, F41.1 - Generalized anxiety disorder, I35.0 - Nonrheumatic aortic (valve) stenosis, N32.9 - Bladder disorder, unspecified, R10.13 - Epigastric pain Complete Blood Count Auto Diff Today E03.9 - Hypothyroidism, unspecified, E78.9 - Disorder of lipoprotein metabolism, unspecified, F41.1 - Generalized anxiety disorder, I35.0 - Nonrheumatic aortic (valve) stenosis, N32.9 - Bladder disorder, unspecified, R10.13 - Epigastric pain Comprehensive Met. Panel Today E03.9 - Hypothyroidism, unspecified, E78.9 - Disorder of lipoprotein metabolism, unspecified, F41.1 - Generalized anxiety disorder, I35.0 - Nonrheumatic aortic (valve) stenosis, N32.9 - Bladder disorder, unspecified, R10.13 - Epigastric pain Referrals Urogynecology Referral N32.9 - Bladder disorder, unspecified
--- OUTSIDE RECORDS SUMMARY | 2025-01-14 14:22 | XMS_ITS | Patient Health Record ---
Author Organization [facility] Address [address] [place] [address] Care Team Providers Care Solutions Developer Name Role Phone Chandler MCGRATH, [facility] Primary Care Provider Harjeet Bruno Unavailable [phone] Allergies No Known Allergies Reason For Referral No Information Medications Medication SIG (Take, Route, Frequency, Duration) Notes Start Date End Date Status Metoprolol Succinate Active Solifenacin Succinate Active clonazePAM Active Atorvastatin Calcium Active Omeprazole Active Aspirin Active Ciclopirox Olamine 0.77 % 1 application Externally Twice a day to skin of feet including between the toes for 30 days Active Sertraline HCl Activ e Synthroid Active Social History Tobacco Use: Social History Observation Description Date Details (start date - stop date) Never Smoker NA - NA Tobacco use other than smoking: Question Answer Notes Are you an other tobacco user? No Tobacco Control (Standard) Question Answer Notes Tobacco use: Nonsmoker Additional Findings: Tobacco non-user Current no nsmoker AUDIT-C (Standard) Question Answer Notes Did you have a drink containing alcohol in the p ast year? No Points 0 Interpretation Negative Problems Problem Type SNOMED Code ICD Code Onset Dates Problem Status W/U Status Risk Notes Problem Atherosclerosis of [place] arteries of the extremities ([id number]) Atherosclerosis of [place] artery of both lower extremities, with unspecified presence of clinical manifestation (I70.203) Active confirmed Q7(A), Q8(2B), Q9(1B,2 C) Vital Signs Blood pressure diastolic 80 mm Hg 12/26/2024 Height 5 ft 3 in in 12/26/2024 Blood pressure systolic 120 mm Hg 12/26/2024 Weight 125 lbs 12/26/2024 BMI 22.14 kg/m2 12/26/2024 Procedures Procedure Date Ordered Date Performed Result Body Sit e 48114-GFLGNWA NAIL, 6 OR MORE 06/20/2024 N/A 77144-ZBNU SKIN LESIONS, 2 TO 4 06/20/2024 N/A 17172-IVLQTHC NAIL, 6 OR MORE 09/26/2024 N/A 83816-XSIH SKIN LESIONS, 2 TO 4 09/26/2024 N/A 82327-SGXXHDL NAIL, 6 OR MORE 12/26/2024 N/A 18531-PTGN SKIN LESIONS, 2 TO 4 12/26/2024 N/A Encounters Encounter Location Date Provider Diagnosis [address] [address] 06/20/2024 Harjeet Ambrose Atherosclerosis of [place] artery of both lower extremities, with unspecified presence of clinical manifestation I70.203 ; Tinea unguium B35.1 ; Pain in right toe(s) M79.674 ; Pain in left toe(s) M79.675 ; Pain in right foot M79.671 ; Pain in right ankle and joints of right foot M25.571 ; Bursitis of right foot M77.51 and Hallux valgus (acquired), right foot M20.[address] [address] 09/26/2024 Harjeet Ambrose Atherosclerosis of [place] artery of both lower extremities, with unspecified presence of clinical manifestation I70.203 ; Tinea unguium B35.1 ; Pain in right toe(s) M79.674 ; Pain in left toe(s) M79.675 and Tinea pedis of both feet B35.[address] [address] 12/26/2024 Harjeet Ambrose Atherosclerosis of [place] artery of both lower extremities, with unspecified presence of clinical manifestation I70.203 ; Tinea unguium B35.1 ; Pain in right toe(s) M79.674 ; Pain in left toe(s) M79.675 and Tinea pedis of both feet B35.[address] [address] 06/13/2024 Harjeet Ambrose [facility] [place] [address] [place] [address] 06/20/2024 Harjeet Ambrose Assessments Encounter Date Diagnosis (ICD Code) Assessment Notes Treatment Notes Treatment Clinical Notes Section Notes 06/20/2024 Atherosclerosis of [place] artery of both lower extremities, with unspecified presence of clinical manifestation (ICD-10 - I70.203) 09/26/2024 Tinea unguium (ICD-10 - B35.1) 09/26/2024 Atherosclerosis of [place] artery of both lower extremities, with unspecified presence of clinical manifestation (ICD-10 - I70.203) Q7(A), Q8(2B), Q9(1B,2C) 12/26/2024 Tinea unguium (ICD-10 - B35.1) 12/26/2024 Atherosclerosis of [place] artery of both lower extremities, with unspecified presence of clinical manifestation (ICD-10 - I70.203) Q7(A), Q8(2B), Q9(1B,2C) 09/26/2024 Pain in right toe(s) (ICD-10 - M79.674) 06/20/2024 Tinea unguium (ICD-10 - B35.1) 12/26/2024 Pain in right toe(s) (ICD-10 - M79.674) 06/20/2024 Pain in right toe(s) (ICD-10 - M79.674) 09/26/2024 Pain in left toe(s) (ICD-10 - M79.675) 12/26/2024 Pain in left toe(s) (ICD-10 - M79.675) 12/26/2024 Tinea pedis of both feet (ICD-10 - B35.3) 09/26/2024 Tinea pedis of both feet (ICD-10 - B35.3) 06/20/2024 Pain in left toe(s) (ICD-10 - M79.675) 06/20/2024 Pain in right foot (ICD-10 - M79.671) 06/20/2024 Pain in right ankle and joints of right foot (ICD-10 - M25.571) 06/20/2024 Bursitis of right foot (ICD-10 - M77.51) 06/20/2024 Hallux valgus (acquired), right foot (ICD-10 - M20.11) Plan Of Treatment Pending Test Test Name Order Date 87843-JUCHWCE NAIL, 6 OR MORE 06/20/2024 20435-JNLIFRD NAIL, 6 OR MORE 09/26/2024 46598-YQWQYCA NAIL, 6 OR MORE 12/26/2024 65576-HAJM SKIN LESIONS, 2 TO 4 12/26/19 25 58197-NDUX SKIN LESIONS, 2 TO 4 09/26/20 24 14664-KOTL SKIN LESIONS, 2 TO 4 06/20/20 24 Next Appt Details Provider Name:Harjeet Shukri Ambrose , 03/31/2025 02:45:00 PM, [address] [place], [address], Insurance Providers Payer Name Payer Address Payer Phone Subscriber Number Group Number Insured Name Patient Relationship to Insured Coverage Start Date Coverage End Date [employer] Medicare [id number] [address] [address] [place] [address] [id number] Carissa Martin Self - patient is the insured Medical (General) History Medical History History ICD Code Cancer Cataracts covid-19 Depression Gall bladder problems Heart disease Stroke thyroid Measles Heart valve conditions/replacement Surgical History Surgery Date(Month/Year)
--- OUTSIDE RECORDS SUMMARY | 2025-01-14 14:22 | XMS_ITS | Patient Health Record ---
Author Organization [facility] Address [address] [place] [address] Care Team Providers Care Special Education Bus Driver Name Role Phone DR JULIENNE GARCIA Primary Care Provider Jo Ann Young Unavailable [phone] Reason For Referral No Information Medications Medication SIG (Take, Route, Fr equency, Duration) Notes Start Date End Date Status Fish Oil 1 ORAL daily for -3 Doe-MJ 01/16/2012 Active Levoxyl 88MCG 1 ORAL DAILY for -3 Doe-MJ 01/16/2012 Active Lotrisone cream 45 GM External twice daily for 5 Doe-MJ 0 01/22/2013 Active Omeprazole 40MG 1 ORAL daily for -3 Doe-MJ 01/16/2012 Active Vitamin D3 1000 IU 1 ORAL daily for -3 Doe-MJ 01/16/2012 Active Sertraline HCl 50 MG 1 tablet Orally Once a day Active Calcium 1 ORAL daily for -3 Doe-MJ 01/16/2012 Active Problems Problem Type SNOMED Code ICD Code Onset Dates Problem Status W/U Status Risk Notes Problem 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 Major Problem Hypothyroidism (79617828) Unspecified hypothyroidism (244.9) Active confirmed Major Problem Hyperlipidemia (71315221) Other and unspecified hyperlipidemia (272.4) Active confirmed Major Problem Obesity (883971948) Obesity, unspecified (278.00) Active confirmed Major Problem Depressive disorder (77180260) Depressive disorder, not elsewhere classified (311) Active confirmed Major Problem Menopausal symptom (38070408) Symptomatic menopausal or female climacteric states (627.2) Active confirmed Major Problem Backache (091201473) Unspecified backache (724.5) Active confirmed Major Problem Insomnia (840502083) Insomnia, unspecified (780.52) Active confirmed Major Problem Gynecological examination normal (997035041867655) Routine gynecological examination (V72.31) Active confirmed Problem Screening for malignant neoplasm of colon (787646770) Special screening for malignant neoplasms, colon (V76.51) Active confirmed Major Plan Of Treatment Pending Test Test Name Order Date MAMMOGRAM, SCREENING 02/15/2015 Insurance Providers Payer Name Payer Address Payer Phone Subscriber Number Group Number Insured Name Patient Relationship to Insured Coverage Start Date Coverage End Date [facility] [employer] [address] [address] [place] [address] [id number] RODRIGUEZ Self - patient is the insured Medical (General) History Medical History History ICD Code Depressive disorder, not elsewhere class ified 311 Other and unspecified hyperlipidemia 272 .4 Kaposi's sarcoma of unspecified site 176 .9 Unspecified hypothyroidism 244.9 GERD CYSTORECTOCELE Surgical History Surgery Date(Month/Year) cholecystectomy MAGAN/BSO Hospitalization History Reason Date(Month/Year) SEE SURGICAL HX
--- OUTSIDE RECORDS SUMMARY | 2025-01-14 14:22 | XMS_ITS ---
Author Organization [facility] Address [address] [place] [address] Care Team Providers Care Risk Manager Name Role Phone Chandler MCGRATH, [facility] Primary Care Provider Harjeet Bruno Unavailable [phone] Allergies No Known Allergies REASON FOR VISIT At Risk Footcare, Painful Nail(s) aggravated by shoes and causing difficulty standing/walking., Skin Problem Medications Medication SIG (Take, Route, Frequency, Duration) Notes Start Date End Date Status Ciclopirox Olamine 0.77 % 1 application Externally Twice a day to skin of feet including between the toes for 30 days Active Omeprazole Active Aspirin Active clonazePAM Active Atorvastatin Calcium Active Metoprolol Succinate Active Solifenacin Succinate Active Sertraline HCl Activ e Synthroid Active Social History Tobacco Use: Social History Observation Description Date Details (start date - stop date) Former Smoker NA - NA Tobacco Use/Smoking Question Answer Notes Are you a: former smoker Additional Findings: Tobacco Non-User Current no n-smoker Alcohol Screen Question Answer Notes Did you have a drink containing alcohol in the p ast year? No Points 0 Interpretation Negative Tobacco use other than smoking: Question Answer Notes Are you an other tobacco user? No Vital Signs Height 5 ft 3 in in 09/26/2024 Weight 125 lbs 09/26/2024 BMI 22.14 kg/m2 09/26/2024 Procedures Procedure Date Ordered Date Performed Result Body Sit e 57568-QFKBAMO NAIL, 6 OR MORE 09/26/2024 N/A 80546-BXLQ SKIN LESIONS, 2 TO 4 09/26/2024 N/A Encounters Encounter Location Date Provider Diagnosis [facility] [address] [place] [address] 09/26/2024 Harjeet Ambrose Atherosclerosis of ak chin artery of both lower extremities, with unspecified presence of clinical manifestation I70.203 ; Tinea unguium B35.1 ; Pain in right toe(s) M79.674 ; Pain in left toe(s) M79.675 and Tinea pedis of both feet B35.3 Assessments Encounter Date Diagnosis (ICD Code) Assessment Notes Treatment Notes Treatment Clinical Notes Section Notes 09/26/2024 Atherosclerosis of ak chin artery of both lower extremities, with unspecified presence of clinical manifestation (ICD-10 - I70.203) Q7(A), Q8(2B), Q9(1B,2C) 09/26/2024 Tinea unguium (ICD-10 - B35.1) 09/26/2024 Pain in right toe(s) (ICD-10 - M79.674) 09/26/2024 Pain in left toe(s) (ICD-10 - M79.675) 09/26/2024 Tinea pedis of both feet (ICD-10 - B35.3) Plan Of Treatment Medication Medication Name Sig Start Date Stop Date Notes Ciclopirox Olamine 0.77 % 1 application Externally Twice a day to skin of feet including between the toes for 30 days Pending Test Test Name Order Date [id number] NAIL, 6 OR MORE 09/26/2024 [id number] SKIN LESIONS, 2 TO 4 09/26/20 24 Next Appt Details Follow Up: prn, Reason: Provider Name:Harjeet Ambrose , 03/31/2025 02:45:00 PM, [address] [place], [address], Procedure Notes * Category Sub-Category Detail Notes Debride Nail 6-10 Nail debridement Performance o f this nail treatment by a nonprofessional would put this patients foot and overall health at risk. Therefore, debridement to affected nail(s), as described in exam, was performed extensively to reduce/remove overall nail length, girth, thickness, subungual debris, and necrotic tissue, by manual and/or electrical means through the use of a nail nipper and/or dremel-type paint grinder, to a more viable healthy nail plate or bed tissue 6-10. Silver nitrate used for any petechial bleeding as necessary. Definitive antifungal treatment options have been reviewed and discussed with the patient. The patient chooses, no pharmaceutical tx - 33222 Keratoma Treatment Parring or Cutting o f Benign Hyperkeratotic Lesion(s) (-56) 2-4 Lesions - The Benign hyperkeratotic lesions, as described in exam, were pared, and/or cut utilizing a sterile 15 blade, tissue nippers, and/or dremel - 33669 , Q8 Progress Notes * Tyson MARTINstephDOB:[birth year] (84 yo F)Acc No.[id number]:09/26/2024 Progress Note Patient:?Carissa MARTIN Provider:?Harjeet Ambrose DPM :1940???Age:84 Y???Sex:Female D ate:09/26/2024 Address:[address] [place], [place] [id number] Pcp:Jae Arteaga MD Subjective: * Chief Complaints: * ???At Risk FootcarePainful N ail(s) aggravated by shoes and causing difficulty standing/walking.Skin Problem * HPI: ???At Risk footcare:?Pt States Last PCP Visit:?Date?09/19/2024 ???Skin problems:?Nature:?scaling , redness.?Location:?B/L .?Duration:?several days.?Course:?worse.? * ROS:?General/Constitutional:?Nausea?denies.?Vomiting?denies.?Hunger Thirst?denies.?Loss appetite?admits.?Chills?denies.?Fatigue?denies.?Fever?denies.?Night Sweats?denies.?Unexplained weight loss?denies.?Unexplained weight gain?denies.?HEENTM:?Dentures?admits.?Dizziness?denies.?Glasses/contacts?admits.?Retinopathy?de nies.?Blurred/double vision?denies.?TMJ?denies.?Discharge/drainage?denies.?Implants?denies.?Sore throat?denies.?Dental implants?denies.?Hard of hearing ?denies.?Difficulty chewing/swallowing/speaking?denies.?Nose bleeds?denies.?Sore mouth?denies.?Respiratory:?On Oxygen?denies.?Pneumonia/pleurisy?denies.?Bronchitis?denies.?Emphysema?denies.?C oughing?denies.?Cough blood?denies.?Shortness of breath?denies.?Wheezing?denies.?Cardiovascular:?Pacemaker?denies.?MVP?denies.?WPW?denies.?CHF?denies.?Heart attack?denies.?Septal defect?denies.?Rapid beat?denies.?Chest pain ?denies.?Atrial Fib.?denies.?Murmur/Palpitations?admits.?Gastrointestinal:?Hemorrhoids?denies.?Stomach/Abdominal pain?denies.?Dark blood stool?denies.?Irritable bowel ?denies.?Constipation?denies.?Diarrhea?denies.?Hematology:?Swelling?denies.?Clots?denies.?Varicose Veins?denies.?Bruising?denies.?Bleeding problem?denies.?Genitourinary:?Blood urine?denies.?Frequent/Painfu/urination/bladder control?admits.?Kidney stones?denies.?Infection (UTI)?denies.?Nephropathy?denies.?sex trans dis (STD)?denies.?Prostate?denies.?Musculoskeletal:?Hammertoes?denies.?Bunions?admits.?Back Pain?denies.?Muscle Cramps/ Resting?denies.?Muscle cramps / walking?denies.?Generalized aches and pains?denies.?Weakness?denies.?Integ.:?Castillo?denies.?Scars?admits.?Corns/calluses?admits.?Ingrown nails?admits.?Painful nails?admits.?Open Sores?denies.?Rashes?denies.?Neurologic:?Difficulty sleeping?denies.?Brain disorder?denies.?Numbness?denies.?Balance trouble?admits.?Confusion?denies.?Fainting/blackouts?denies.?Tingling?denies.?Tr emors?denies.? * Medical History:? * Surgical History:?Denies Pas t Surgical History * Hospitalization/Major Diagno stic Procedure:?Denies Past Hospitalization * Family History:?Mother: dece ased, stroke.?Father: .? * Social History:?Tobacco Use:?Tobacco Use/Smoking?Are you a:?former smoker ?Additional Findings: Tobacco Non-User?Current non-smoker ?Tobacco use other than smoking?Are you an other tobacco user??No ???Drugs/Alcohol:?Drugs?Have you used drugs other than those for medical reasons in the past 12 months??No ?Alcohol Screen?Did you have a drink containing alcohol in the past year??No ?Points?0 ?Interpretation?Negative ???Miscellaneous:?Caffeine: yes. ?Children: yes, 2. ?Exercise: no. ?Marital status: . * Medications:?TakingSynthroid Sertraline HCl Solifenacin Succinate Metoprolol Succinate Atorvastatin Calcium clonazePAM Aspirin Omeprazole Medication List reviewed and reconciled with the patientTaking Synthroid Taking Sertraline HCl Taking Solifenacin Succinate Taking Metoprolol Succinate Taking Atorvastatin Calcium Taking clonazePAM Taking Aspirin Taking Omeprazole Medication List reviewed and reconciled with the patient * Allergies:?N.K.D.A.yes[Aller gies Verified] Objective: * Vitals:?Ht: 5 ft 3 in, Wt:12 5, BMI: 22.14, Shoe size:7.5-8, Wt-k.7 kg. * Examination: ???Vascular: ?DP PULSES (B):?0/4 , LEFT , 1/4 , RIGHT.?PT PULSES (B):?0/4 , RIGHT , 1/4 , LEFT.?CAPILLARY FILL TIME:? delayed, all digits, B/L.?TROPHIC CONDITION-TEXTURE/ELASTICITY/TURGOR/HAIR GROWTH (B):? decreased, fragile, thin, shiny skin, with sparse to absent hair growth, B/L.?TEMPERTURE GRADIENT (C):? decreased, cool to cool, proximal to distal, B/L.?PIGMENTATION:?mottled, B/L.?EDEMA (C):?absent, B/L.?CLAUDICATION (C):?denies, B/L.?REST PAIN:?denies, B/L.?Nails: ?NAILS are:? Elongated, overgrown, dystrophic, lytic, greater than 3mm thick, discolored and friable with crumbly malodorous subungual debris, with pain on palpation, 1-5 B/L.?Dermatologic: ?SKIN FINDINGS:?Skin exam reveals Keratotic lesion(s) located at , Plantar, Heel(s) , B/L , Skin shows sign(s) of, erythema, scaling, in a moccasin fashion, no fissure(s) present, B/L.? Assessment: * Assessment: 1.?Tinea unguium - B35.1???2 .?Atherosclerosis of ak chin artery of both lower extremities, with unspecified presence of clinical manifestation - I70.203???Notes :Q7(A), Q8(2B), Q9(1B,2C)???3.?Pain in right toe(s) - M79.674???4.?Pain in left toe(s) - M79.675???5.?Tinea pedis of both feet - B35.3???Specify :Acute problem, Uncomplicated (3),Rx drug management (4)??? Plan: * Treatment: 2.?Atherosclerosis of ak chin artery of both lower extremities, with unspecified presence of clinical manifestation?Procedure: [id number] SKIN LESIONS, 2 TO 4 3.?Tinea pedis of both feet? Start Ciclopirox Olamine Cream, 0.77 %, 1 application, Externally, Twice a day to skin of feet including between the toes, 30 days, 60, Refills 2.?? * Procedures:?Debride Nail 6-10:?Nail debridement?Performance of this nail treatment by a nonprofessional would put this patients foot and overall health at risk. Therefore, debridement to affected nail(s), as described in exam, was performed extensively to reduce/remove overall nail length, girth, thickness, subungual debris, and necrotic tissue, by manual and/or electrical means through the use of a nail nipper and/or dremel-type paint grinder, to a more viable healthy nail plate or bed tissue 6-10. Silver nitrate used for any petechial bleeding as necessary. Definitive antifungal treatment options have been reviewed and discussed with the patient. The patient chooses, no pharmaceutical tx - 14480.?Keratoma Treatment:?Parring or Cutting of Benign Hyperkeratotic Lesion(s)?(-56) 2-4 Lesions - The Benign hyperkeratotic lesions, as described in exam, were pared, and/or cut utilizing a sterile 15 blade, tissue nippers, and/or dremel - 42943 , Q8.? * Procedure Codes:?48481 DEBRI DE NAIL, 6 OR MORE, Modifiers: XS 25140 TRIM SKIN LESIONS, 2 TO 4, Modifiers: XS , Q8 * Preventive Medicine:? ??Counseling:?Discussion:?-13: Office or other outpatient visit for the evaluation and management of an established patient, which required a medically appropriate history and/or examination and LOW level of DECISION MAKING for: 1 STABLE ACUTE UNCOMPLICATED PROBLEM, 2 OR MORE MINOR PROBLEMS, OR 1 STABLE CHRONIC PROBLEM, THAT POSE(S) A LOW RISK FOR MORBIDITY/MORTALITY. The visit on the day of the encounter encompassed interpreting the data and educating the patient as to the nature of their condition, treatment options available according to their individual PMH, meds, allergies, and overall health/living conditions, as well as any potential risks or complications that may occur from a failure to adhere to, and participate in, the recommended course of therapy. The discussion included a complete verbal, and/or written explanation of the examination results, any x-rays taken, the proposed diagnosis, and outline of the treatment plan. A schedule for future care needs was also explained. The patient verbalized an understanding of the instructions at this time and agreed to be an active participant in their treatment. If the patient should think of any questions or concerns after the visit, I have encouraged the patient to call the office.?Tinea Pedis:?The patient was counseled on the diagnosis, potential etiologies, and treatment options for their skin condition. We discussed the risks and benefits of each option from performing no treatment, to utilizing OTC topical skin creams, prescription topical creams, customized compounded topical medications, and, if necessary, to utilize oral antifungal therapy. We discussed the advantages and disadvantages of each possible treatment and importance for adherence to all the recommended therapies for optimum success and avoid potential complications such as open sore/infection/possible hospitalization. We discussed the potential effectiveness of each topical preparation as well as each ones possible side effects and/or patient medication interactions if oral therapy is selected. Patient questions re: the advantages and disadvantages of each treatment choice, medication use/dosage, successful outcomes, and application consistency were reviewed and the patient verbalized that all answers were clearly understood. The patient was told they can help alleviate symptoms by utilizing moisture absorbant innersoles with activated charcoal and baking soda, applying antifungal sprays daily, aerating toe web spaces at night by putting cotton or lambs wool between the toes, alternating shoe gear daily if possible so they can dry out, changing socks at least once during the day, wearing well-ventilated shoes or sandals. The patient has decided to apply antifungal skin creams to their feet as directed. Rx was sent to their pharmacy at the time of visit.? ??Screening/Special Tests:?Fall Risk?Screening:?No falls in the past year ?FALLS: Screening for Future Fall Risk?Have you had any falls with injury in the past year??No * Follow Up:?prn * Images: * Sign off status: Completed true * Provider:?Harjeet Ambrose DPM Date:?2023 Generated for Jazmín russo/Paulette/Kerri on:?01/14/2025 02:22 PM EST History and Physical Notes * HPI (History of Present Illness) Category Sub-Category Detail Notes Category Not es Skin problems Nature: scaling , redness Location: B/L Duration: several days Course: worse At Risk footcare Pt States Last PCP Visit: Date: 4 Examination Category Sub-Category Detail Notes Category Not es Dermatologic SKIN FINDINGS: Skin exam reveal s Keratotic lesion(s) located at , Plantar, Heel(s) , B/L , Skin shows sign(s) of, erythema, scaling, in a moccasin fashion, no fissure(s) present, B/L Vascular DP PULSES (B): 0/4 , LEFT , 1/4 , RIGHT PT PULSES (B): 0/4 , RIGHT , 1/4 , LEFT CAPILLARY FILL TIME: delayed, all digits , B/L TEMPERTURE GRADIENT (C): decreased, cool to cool, proximal to distal, B/L TROPHIC CONDITION-TEXTURE/ELASTICITY/TURGOR/HAIR GROWTH (B): decreased, fragile, thin, shiny skin, wi th sparse to absent hair growth, B/L EDEMA (C): absent, B/L CLAUDICATION (C): denies, B/L REST PAIN: denies, B/L PIGMENTATION: mottled, B/L Nails NAILS are: Elongated, overg rown, dystrophic, lytic, greater than 3mm thick, discolored and friable with crumbly malodorous subungual debris, with pain on palpation, 1-5 B/L
--- OUTSIDE RECORDS SUMMARY | 2025-01-14 14:22 | XMS_ITS ---
Author Organization [facility] Address [address] [place] [address] Care Team Providers Care Credit Control Officer Name Role Phone Chandler MCGRATH, [facility] Primary [facility] Provider Harjeet Bruno [phone] REASON FOR VISIT BUY gel Bunion Guard Grt toe Encounters Encounter Location Date Provider Diagnosis [address] [address] 06/20/2024 Harjeet Ambrose Plan Of Treatment Next Appt Details Provider Name:Harjeet Ambrose , 03/31/2025 02:45:00 PM, [address] [place], [address], Progress Notes * Carissa MARTINDOB:[birth year] (84 yo F)Acc No.[id number]:06/20/2024 Patient:?Carissa Martin :1940???Age:84 Y???Sex:Female Address:[address] [place] [address], [address] * true * Date:? Generated for Darrelli rafaela/Paulette/eTransmitting on:?01/14/2025 02:21 PM EST
--- OUTSIDE RECORDS SUMMARY | 2025-01-14 14:23 | XMS_ITS ---
Author Organization [facility] Address [address] [place] [address] Care Team Providers Care Ham Passer Name Role Phone Chandler MCGRATH, [facility] Primary Care Provider Harjeet Bruno Unavailable [phone] Allergies No Known Allergies REASON FOR VISIT At Risk Footcare, Painful Nail(s) aggravated by shoes and causing difficulty standing/walking., Skin Problem Medications Medication SIG (Take, Route, Frequency, Duration) Notes Start Date End Date Status Solifenacin Succinate Active Omeprazole Active Ciclopirox Olamine 0.77 % 1 application Externally Twice a day to skin of feet including between the toes for 30 days Active Sertraline HCl Activ e Synthroid Active Metoprolol Succinate Active clonazePAM Active Atorvastatin Calcium Active Aspirin Active Social History Tobacco Use: Social History [...] ast year? No Points 0 Interpretation Negative Vital Signs Height 5 ft 3 in in 12/26/2024 Weight 125 lbs 12/26/2024 BMI 22.14 kg/m2 12/26/2024 Blood pressure systolic 120 mm Hg 12/26/19 25 Blood pressure diastolic 80 mm Hg 025 Procedures Procedure Date Ordered Date Performed Result Body Sit e 65548-CGATOIL NAIL, 6 OR MORE 12/26/2024 N/A 43262-CLSI SKIN LESIONS, 2 TO 4 12/26/2024 N/A Encounters Encounter Location Date Provider Diagnosis [facility] [address] [address] 12/26/2024 Harjeet Ambrose Atherosclerosis of osage artery of both lower extremities, with unspecified presence of clinical manifestation I70.203 ; Tinea unguium B35.1 ; Pain in right toe(s) M79.674 ; Pain in left toe(s) M79.675 and Tinea pedis of both feet B35.3 Assessments Encounter Date Diagnosis (ICD Code) Assessment Notes Treatment Notes Treatment Clinical Notes Section Notes 12/26/2024 Atherosclerosis of osage artery of both lower extremities, with unspecified presence of clinical manifestation (ICD-10 - I70.203) Q7(A), Q8(2B), Q9(1B,2C) 12/26/2024 Tinea unguium (ICD-10 - B35.1) 12/26/2024 Pain in right toe(s) (ICD-10 - M79.674) 12/26/2024 Pain in left toe(s) (ICD-10 - M79.675) 12/26/2024 Tinea pedis of both feet (ICD-10 - B35.3) Plan Of Treatment Pending Test Test Name Order Date 40989-RXKBCZX NAIL, 6 OR MORE 12/26/2024 88422-HIYA SKIN LESIONS, 2 TO 4 12/26/19 25 Next Appt Details Follow Up: prn, Reason: Provider Name:Harjeet Hallunier , 03/31/2025 02:45:00 PM, [address] [place] [address], [phone], Procedure Notes * Category Sub-Category Detail Notes Debride Nail 6-10 Nail debridement Due to the cl inical pathology outlined in the exam findings, performance of this nail treatment is medically necessary as its management by an unskilled/untrained nonprofessional would put this patients foot and overall health at risk. Therefore, debridement to affected nail(s), as described in exam ( TA, T1, T2, T3, T4, T5, T6, T7, T8, T9 ), was performed exclusively by the physician of record to reduce/remove overall nail length, girth, thickness, subungual debris, and necrotic tissue, by manual and/or electrical means through the use of a nail nipper and/or dremel-type snuff grinder, to a more viable healthy nail plate or bed tissue 6-10 nails in total. Silver nitrate was used for any petechial bleeding as necessary. Definitive antifungal treatment options, both pharmaceutical and surgical, have been reviewed and discussed with the patient. The patient solely prefers the use of intermittent/as needed professional debridement services for their nail condition and understands the need for additional periodic treatments to maintain effectiveness in symptomatic relief - 67811 Keratoma Treatment Parring or Cutting o f Benign Hyperkeratotic Lesion(s) (-56) 2-4 Lesions - Due to the at risk nature of the patients medical condition as documented in the exam findings, performance of this keratoderma treatment is medically necessary as its management by an unskilled/untrained nonprofessional would put this patients foot and overall health at risk. Therefore, the benign hyperkeratotic lesions, ( 4 ) in total, locations as stated and described in the exam ( Plantar, T2, SUB MTH (s), 1, Right, Plantar, Heel(s) , B/L ), were pared, and/or cut utilizing a sterile 15 blade, tissue nippers, and/or power dremel instrumentation by the physician of record - 56136, Q8 Progress Notes * Omaira MARTINellaDOB:[birth year] (84 yo F)Acc No.[id number]:12/26/2024 Progress Note Patient:?Carissa MARTIN Provider:?Harjeet Ambrose DPM :1940???Age:84 Y???Sex:Female D ate:12/26/2024 Address:[address] [place], [place] [phone] Pcp:Jae Arteaga MD Subjective: * Chief Complaints: * ???At Risk FootcarePainful N ail(s) aggravated by shoes and causing difficulty standing/walking.Skin Problem * HPI: ???At Risk footcare:?Pt States Last PCP Visit:?Date?09/19/2024 ?Misc?Patient accompanied by, , AMRTÍN, who is physically present in exam room at time of visit.?Skin problems:?Treatments:?Medication (Ciclopirox Olamine 0.77 Cream), states adherence to recommended treatment application.? * ROS:?General/Constitutional:?Nausea?denies.?Vomiting?denies.?Hunger Thirst?denies.?Loss appetite?admits.?Chills?denies.?Fatigue?denies.?Fever?denies.?Night Sweats?denies.?Unexplained weight loss?denies.?Unexplained [...] ased, stroke.?Father: .? * Social History:?Tobacco Use:?Tobacco use other than smoking?Are you an other tobacco user??No ?Tobacco Control (Standard)?Tobacco use:?Nonsmoker ?Additional Findings: Tobacco non-user?Current nonsmoker ???Drugs/Alcohol:?Drugs?Have you used drugs other than those for medical reasons in the past 12 months??No ???Miscellaneous:?Caffeine: yes. ?Children: yes, 2. ?Exercise: no. ?Marital status: . ???Drug/Alcohol:?AUDIT-C (Standard)?Did you have a drink containing alcohol in the past year??No ?Points?0 ?Interpretation?Negative * Medications:?TakingSynthroid Sertraline HCl Solifenacin Succinate Metoprolol Succinate Atorvastatin Calcium clonazePAM Aspirin Omeprazole Ciclopirox Olamine 0.77 % Cream 1 application Externally Twice a day to skin of feet including between the toes Medication List reviewed and reconciled with the patientTaking Synthroid Taking Sertraline HCl Taking Solifenacin Succinate Taking Metoprolol Succinate Taking Atorvastatin Calcium Taking clonazePAM Taking Aspirin Taking Omeprazole Taking Ciclopirox Olamine 0.77 % Cream 1 application Externally Twice a day to skin of feet including between the toes Medication List reviewed and reconciled with the patient * Allergies:?N.K.D.A.yes[Aller teresa Verified] Objective: * Vitals:?Ht: 5 ft 3 in, Wt:12 5, BMI: 22.14, Shoe size:7.5-8, BP:120/80mm Hg, Wt- k.7 kg. * Examination: ???Vascular: ?DP PULSES (B):?0/4 [...] crumbly malodorous subungual debris, with pain on palpation,?TA, T1, T2, T3, T4, T5, T6, T7, T8, T9.?Dermatologic: ?SKIN FINDINGS:?Skin exam reveals Keratotic lesion(s) located at , Plantar, T2, SUB MTH (s), 1, Right, Plantar, Heel(s) , B/L , Skin shows approximately 90-95 percent LESS, sign(s) of, erythema, scaling, in a moccasin fashion, no fissure(s) present, B/L.? Assessment: * Assessment: 1.?Tinea unguium - B35.1???2 .?Atherosclerosis of osage artery of both lower extremities, with unspecified presence of clinical manifestation - I70.203 (Primary)???Notes :Q7(A), Q8(2B), Q9(1B,2C)???3.?Pain in right toe(s) - M79.674???4.?Pain in left toe(s) - M79.675???5.?Tinea pedis of both feet - B35.3???Specify :Acute problem, Stable Response to treatment - Improvement??? Plan: * Treatment: 2.?Tinea unguium?Procedure: 81166-NCGZCNZ NAIL, 6 OR MORE * Procedures:?Debride Nail 6-10:?Nail debridement?Due to the clinical pathology outlined in the exam findings, performance of this nail treatment is medically necessary as its management by an unskilled/untrained nonprofessional would put this patients foot and overall health at risk. Therefore, debridement to affected nail(s), as described in exam (?TA, T1, T2, T3, T4, T5, T6, T7, T8, T9?), was performed exclusively by the physician of record to reduce/remove overall nail length, girth, thickness, subungual debris, and necrotic tissue, by manual and/or electrical means through the use of a nail nipper and/or dremel-type snuff grinder, to a more viable healthy nail plate or bed tissue 6- 10 nails in total. Silver nitrate was used for any petechial bleeding as necessary. Definitive antifungal treatment options, both pharmaceutical and surgical, have been reviewed and discussed with the patient. The patient solely prefers the use of intermittent/as needed professional debridement services for their nail condition and understands the need for additional periodic treatments to maintain effectiveness in symptomatic relief - 54873.?Keratoma Treatment:?Parring or Cutting of Benign Hyperkeratotic Lesion(s)?(-56) 2-4 Lesions - Due to the at risk nature of the patients medical condition as documented in the exam findings, performance of this keratoderma treatment is medically necessary as its management by an unskilled/untrained nonprofessional would put this patients foot and overall health at risk. Therefore, the benign hyperkeratotic lesions, ( 4 ) in total, locations as stated and described in the exam (??Plantar,?T2,?SUB MTH (s),?1,?Right,?Plantar,?Heel(s)?,?B/L?), were pared, and/or cut utilizing a sterile 15 blade, tissue nippers, and/or power dremel instrumentation by the physician of record - 51651, Q8.? * Procedure Codes:?01438 DEBRI DE NAIL, 6 OR MORE, Modifiers: XS 94849 TRIM SKIN LESIONS, 2 TO 4, Modifiers: XS , Q8 * Preventive Medicine:? ??Counseling:?Discussion:?-12: Office or other outpatient visit for the evaluation and management of an established patient, which required a medically appropriate history and/or examination and STRAIGHTFORWARD level of MEDICAL DECISION MAKING, 1 SELF-LIMITED OR MINOR PROBLEM, MINIMAL- NO AMOUNT/COMPLEXITY OF DATA TO BE REVIEWED/ANALYZED, AND MINIMAL RISK OF COMPLICATION/MORBIDITY. The visit on the day of the [...] encouraged the patient to call the office.?Tinea Pedis:?Given recent successful results to treatment, The patient is to cont the rx cream as directed.? ??Screening/Special Tests:?Fall Risk?Screening:?No falls in the past year ?FALLS: Screening for Future Fall Risk?Have you had any falls with injury in the past year??No * Follow Up:?prn * Images: * Sign off status: Completed true * Provider:?Harjeet Ambrose DPM Date:?2024 Generated for Jazmín russo/Paulette/eTcristina on:?01/14/2025 02:22 PM EST History and Physical Notes * HPI (History of Present Illness) Category Sub-Category Detail Notes Category Not es Skin problems Treatments: Medication (Cicl opirox Olamine 0.77 Cream), states adherence to recommended treatment application At Risk footcare Pt States Last PCP Visit: Date: 09/19/2024 [facility] Patient accompanied by, , MARTÍN, who is physically present in exam room at time of visit Examination Category Sub-Category Detail Notes Category Not es Dermatologic SKIN FINDINGS: Skin exam reveal s Keratotic lesion(s) located at , Plantar, T2, SUB MTH (s), 1, Right, Plantar, Heel(s) , B/L , Skin shows approximately 90-95 percent LESS, sign(s) of, erythema, scaling, in a moccasin [...] malodorous subungual debris, with pain on palpation, TA, T1, T2, T3, T4, T5, T6, T7, T8, T9
== END 2025-01-14 11:43 | disposition home or self-care (01) ==
PROVIDERS: PCP Internal Medicine; Visit Provider Internal Medicine
DX: E03.9 Hypothyroidism, unspecified (principal); F41.1 Generalized anxiety disorder; E78.9 Disorder of lipoprotein metabolism, unspecified; R10.13 Epigastric pain; I35.0 Nonrheumatic aortic (valve) stenosis; N32.9 Bladder disorder, unspecified

== ENCOUNTER → 2025-01-14 11:26 | Outpatient (BNVA) | payer MEDICARE, SELFPAY | PROVIDERS: PCP Internal Medicine; Visit Provider Internal Medicine | DX: E03.9 Hypothyroidism, unspecified (principal); F41.1 Generalized anxiety disorder; E78.9 Disorder of lipoprotein metabolism, unspecified; R10.13 Epigastric pain; I35.0 Nonrheumatic aortic (valve) stenosis; N32.9 Bladder disorder, unspecified | CPT/HCPCS: 96127; 99212 ==

== ENCOUNTER 2025-01-16 09:26 | Outpatient (REF) | payer MEDICARE, SELFPAY ==
--- OUTSIDE RECORDS SUMMARY | 2025-01-16 10:08 | XMS_ITS | Patient Health Record ---
Author Organization [facility] Address [address] [place] [address] Care Team Providers Care Emergency Operator Name Role Phone Chandler MCGRATH, [facility] Primary Care Provider Harjeet Bruno Unavailable [phone] Allergies No Known Allergies Reason For Referral [...] W/U Status Risk Notes Problem Atherosclerosis of [place] arteries of the extremities (624299989991837) Atherosclerosis of [place] artery of both lower extremities, with unspecified presence of clinical manifestation (I70.203) Active confirmed Q7(A), Q8(2B), Q9(1B,2 C) Vital Signs Blood pressure diastolic 80 mm Hg 12/26/2024 Height 5 ft 3 in in 12/26/2024 Blood pressure systolic 120 mm Hg 12/26/2024 Weight 125 lbs 12/26/2024 BMI 22.14 kg/m2 12/26/2024 Procedures Procedure Date Ordered Date Performed Result Body Sit e 58653-WZRMUVN NAIL, 6 OR MORE 06/20/2024 N/A 96695-DMPM SKIN LESIONS, 2 TO 4 06/20/2024 N/A 63362-GBQWNQM NAIL, 6 OR MORE 09/26/2024 N/A 03685-ITVG SKIN LESIONS, 2 TO 4 09/26/2024 N/A 59822-CLGHTQX NAIL, 6 OR MORE 12/26/2024 N/A 06032-KWFR SKIN LESIONS, 2 TO 4 12/26/2024 N/A Encounters Encounter Location Date Provider Diagnosis [address] [address] 06/20/2024 Harjeet Ambrose Atherosclerosis of [place] artery of both lower extremities, with unspecified presence of clinical manifestation I70.203 ; Tinea unguium B35.1 ; Pain in right toe(s) M79.674 ; Pain in left toe(s) M79.675 ; Pain in right foot M79.671 ; Pain in right ankle and joints of right foot M25.571 ; Bursitis of right foot M77.51 and Hallux valgus (acquired), right foot M20.[address] [address] 09/26/2024 Harjeet Ambrose Atherosclerosis of [place] artery of both lower extremities, with unspecified presence of clinical manifestation I70.203 ; Tinea unguium B35.1 ; Pain in right toe(s) M79.674 ; Pain in left toe(s) M79.675 and Tinea pedis of both feet B35.[address] [address] 12/26/2024 Harjeet Ambrose Atherosclerosis of [place] artery of both lower extremities, with unspecified presence of clinical manifestation I70.203 ; Tinea unguium B35.1 ; Pain in right toe(s) M79.674 ; Pain in left toe(s) M79.675 and Tinea pedis of both feet B35.[address] [address] 06/13/2024 Harjeet Ambrose [facility] [address] [place] [address] 06/20/2024 Harjeet Ambrose Assessments Encounter Date Diagnosis (ICD Code) Assessment Notes Treatment Notes Treatment Clinical Notes Section Notes 06/20/2024 Atherosclerosis of [place] artery of both lower extremities, with unspecified presence of clinical manifestation (ICD-10 - I70.203) 09/26/2024 Tinea unguium (ICD-10 - B35.1) 09/26/2024 Atherosclerosis of [place] artery of both lower extremities, with unspecified presence of clinical manifestation (ICD-10 - I70.203) Q7(A), Q8(2B), Q9(1B,2C) 12/26/2024 Tinea unguium (ICD-10 - B35.1) 12/26/2024 Atherosclerosis of [place] artery of both lower extremities, with unspecified [...] Treatment Pending Test Test Name Order Date 14643-SXBMAYG NAIL, 6 OR MORE 06/20/2024 95007-GTKFRSI NAIL, 6 OR MORE 09/26/2024 20830-RHIGQWN NAIL, 6 OR MORE 12/26/2024 94618-AQOL SKIN LESIONS, 2 TO 4 12/26/19 25 18991-FKII SKIN LESIONS, 2 TO 4 09/26/20 24 86222-MHQB SKIN LESIONS, 2 TO 4 06/20/20 24 Next Appt Details Provider Name:Harjeet Shukri Ambrose , 03/31/2025 02:45:00 PM, [address] [place], [address], Insurance Providers Payer Name Payer Address Payer Phone Subscriber Number Group Number Insured Name Patient Relationship to Insured Coverage Start Date Coverage End Date [employer] Medicare Adv-[id number] [address] [address] [place] [address] [id number] Carissa Martin Self - patient is the insured Medical (General) History Medical History History ICD Code Cancer Cataracts covid-19 Depression Gall bladder problems Heart disease Stroke thyroid Measles Heart valve conditions/replacement Surgical History Surgery Date(Month/Year)
--- OUTSIDE RECORDS SUMMARY | 2025-01-16 10:08 | XMS_ITS | Patient Health Record ---
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) Active confirmed Major Problem Hypothyroidism (96258518) Unspecified hypothyroidism (244.9) Active confirmed Major Problem Hyperlipidemia (50344554) Other and unspecified hyperlipidemia (272.4) Active confirmed Major Problem Obesity (635915625) Obesity, unspecified (278.00) Active confirmed Major Problem Depressive disorder (68439237) Depressive disorder, not elsewhere classified (311) Active confirmed Major Problem Menopausal symptom (65641738) Symptomatic menopausal or female climacteric states (627.2) Active confirmed Major Problem Backache (332298358) Unspecified backache (724.5) Active confirmed Major Problem Insomnia (409028391) Insomnia, unspecified (780.52) Active confirmed Major Problem Gynecological examination normal (206329498239892) Routine gynecological examination (V72.31) Active confirmed Problem Screening for malignant neoplasm of colon (349362383) Special screening for malignant neoplasms, colon (V76.51) Active confirmed Major Plan Of Treatment Pending Test Test Name Order Date MAMMOGRAM, SCREENING 02/15/2015 Insurance Providers Payer Name Payer Address Payer Phone Subscriber Number Group Number Insured Name Patient Relationship to Insured Coverage Start Date Coverage End Date [facility] [employer]IONS [address] [address] [place] [address] [id number] RODRIGUEZ Self - patient is the insured Medical (General) History Medical History History ICD Code Depressive disorder, not elsewhere class ified 311 Other and unspecified hyperlipidemia 272 .4 Kaposi's sarcoma of unspecified site 176 .9 Unspecified hypothyroidism 244.9 GERD CYSTORECTOCELE Surgical History Surgery Date(Month/Year) cholecystectomy MAGAN/BSO Hospitalization History Reason Date(Month/Year) SEE SURGICAL HX
--- OUTSIDE RECORDS SUMMARY | 2025-01-16 10:08 | XMS_ITS ---
Author Organization [facility] Address [address] [place] [address] Care Team Providers Care Vice Admiral Name Role Phone Chandler MCGRATH, [facility] Primary Care Provider Harjeet Bruno Unavailable [phone] Allergies No Known Allergies REASON FOR VISIT [...] Ordered Date Performed Result Body Sit e 85084-KJZILUD NAIL, 6 OR MORE 12/26/2024 N/A 04893-ZZVG SKIN LESIONS, 2 TO 4 12/26/2024 N/A Encounters Encounter Location Date Provider Diagnosis [facility] [address] [address] 12/26/2024 Harjeet Ambrose Atherosclerosis of [place] artery of both lower extremities, with unspecified presence of clinical manifestation I70.203 ; Tinea unguium B35.1 ; Pain in right toe(s) M79.674 ; Pain in left toe(s) M79.675 and Tinea pedis of both feet B35.3 Assessments Encounter Date Diagnosis (ICD Code) Assessment Notes Treatment Notes Treatment Clinical Notes Section Notes 12/26/2024 Atherosclerosis of [place] artery of both lower extremities, with unspecified presence of clinical manifestation (ICD-10 - I70.203) Q7(A), Q8(2B), Q9(1B,2C) 12/26/2024 Tinea unguium (ICD-10 - B35.1) 12/26/2024 Pain in right toe(s) (ICD-10 - M79.674) 12/26/2024 Pain in left toe(s) (ICD-10 - M79.675) 12/26/2024 Tinea pedis of both feet (ICD-10 - B35.3) Plan Of Treatment Pending Test Test Name Order Date 24073-IZJWATT NAIL, 6 OR MORE 12/26/2024 90255-AENW SKIN LESIONS, 2 TO 4 12/26/19 25 Next Appt Details Follow Up: prn, Reason: Provider Name:Harjeet Hallunier , 03/31/2025 02:45:00 PM, [address] [place] [address], [phone], Procedure Notes * Category Sub-Category Detail Notes [...] use of a nail nipper and/or dremel-type card grinder helper, to a more viable healthy nail plate [...] to maintain effectiveness in symptomatic relief - 14470 Keratoma Treatment Parring or Cutting o f [...] instrumentation by the physician of record - 66698, Q8 Progress Notes * Omaira MARTINellaDOB:[birth year] (84 yo F)Acc No.[id number]:12/26/2024 Progress Note Patient:?Carissa MARTIN Provider:?Harjeet Ambrose DPM :1940???Age:84 Y???Sex:Female D ate:12/26/2024 Address:[address] [place], [place] [phone] Pcp:Jae Arteaga MD Subjective: * Chief Complaints: * ???At Risk FootcarePainful N ail(s) aggravated by shoes and causing difficulty standing/walking.Skin Problem * HPI: ???At Risk footcare:?Pt States Last PCP Visit:?Date?09/19/2024 ?Misc?Patient accompanied by, , MARTÍN, who is physically [...] Assessment: 1.?Tinea unguium - B35.1???2 .?Atherosclerosis of [place] artery of both lower extremities, with unspecified presence of clinical manifestation - I70.203 (Primary)???Notes :Q7(A), Q8(2B), Q9(1B,2C)???3.?Pain in right toe(s) - M79.674???4.?Pain in left toe(s) - M79.675???5.?Tinea pedis of both feet - B35.3???Specify :Acute problem, Stable Response to treatment - Improvement??? Plan: * Treatment: 2.?Tinea unguium?Procedure: 09326-SKBAPQZ NAIL, 6 OR MORE * Procedures:?Debride Nail [...] use of a nail nipper and/or dremel-type card grinder helper, to a more viable healthy nail plate [...] to maintain effectiveness in symptomatic relief - 48370.?Keratoma Treatment:?Parring or Cutting of Benign Hyperkeratotic Lesion(s)?(-56) [...] instrumentation by the physician of record - 15130, Q8.? * Procedure Codes:?96950 DEBRI DE NAIL, 6 OR MORE, Modifiers: XS 52164 TRIM SKIN LESIONS, 2 TO 4, Modifiers: [...] Provider:?Harjeet Ambrose DPM Date:?2024 Generated for Jazmín russo/Paulette/eTnicasmmarcelino on:?01/16/2025 10:08 AM EST History and Physical Notes * HPI (History of Present Illness) Category Sub-Category Detail Notes Category Not es Skin problems Treatments: Medication (Cicl opirox Olamine 0.77 Cream), states adherence to recommended treatment application At Risk footcare Pt States Last PCP Visit: Date: 09/19/2024 [facility] [place] accompanied by, , MARTÍN, who is [...]
--- OUTSIDE RECORDS SUMMARY | 2025-01-16 10:08 | XMS_ITS ---
Author Organization [facility] Address [address] [place] [address] Care Team Providers Care Java User Interface Developer Name Role Phone Chandler MCGRATH, [facility] Primary Care Provider Harjeet Bruno [phone] REASON FOR VISIT BUY gel Bunion Guard Grt toe Encounters Encounter Location Date Provider Diagnosis [address] [address] 06/20/2024 Harjeet Ambrose Plan Of Treatment Next Appt Details Provider Name:Harjeet Ambrose , 03/31/2025 02:45:00 PM, [address] [place], [address], Progress Notes * Carissa MARTINDOB:[birth year] (84 yo F)Acc No.[id number]:06/20/2024 Patient:?Carissa Martin :1940???Age:84 Y???Sex:Female Address:[address] [place] [address], [address] * true * Date:? Generated for Darrelli rafaela/Paulette/eTransmitting on:?01/16/2025 10:07 AM EST
--- OUTSIDE RECORDS SUMMARY | 2025-01-16 10:08 | XMS_ITS ---
Author Organization [facility] Address [address] [place] [address] Care Team Providers Care Behavioral Health Associate Name Role Phone Chandler MCGRATH, [facility] Primary Care Provider Harjeet Bruno Unavailable [phone] Allergies No Known Allergies REASON FOR VISIT [...] Ordered Date Performed Result Body Sit e 43571-RVTZPRP NAIL, 6 OR MORE 09/26/2024 N/A 65406-QULN SKIN LESIONS, 2 TO 4 09/26/2024 N/A Encounters Encounter Location Date Provider Diagnosis [facility] [address] [place] [address] 09/26/2024 Harjeet Ambrose Atherosclerosis of [place] artery of both lower extremities, with unspecified presence of clinical manifestation I70.203 ; Tinea unguium B35.1 ; Pain in right toe(s) M79.674 ; Pain in left toe(s) M79.675 and Tinea pedis of both feet B35.3 Assessments Encounter Date Diagnosis (ICD Code) Assessment Notes Treatment Notes Treatment Clinical Notes Section Notes 09/26/2024 Atherosclerosis of [place] artery of both lower extremities, with unspecified [...] days Pending Test Test Name Order Date 23688-EHBHWUY NAIL, 6 OR MORE 09/26/2024 94119-YALV SKIN LESIONS, 2 TO 4 09/26/20 24 Next Appt Details Follow Up: prn, Reason: Provider Name:Harjeet Ambrose , 03/31/2025 02:45:00 PM, [address] [place], [address], Procedure Notes * Category Sub-Category Detail Notes [...] use of a nail nipper and/or dremel-type nut grinder, to a more viable healthy nail plate or bed tissue 6-10. Silver nitrate used for any petechial bleeding as necessary. Definitive antifungal treatment options have been reviewed and discussed with the patient. The patient chooses, no pharmaceutical tx - 91382 Keratoma Treatment Parring or Cutting o f Benign Hyperkeratotic Lesion(s) (-56) 2-4 Lesions - The Benign hyperkeratotic lesions, as described in exam, were pared, and/or cut utilizing a sterile 15 blade, tissue nippers, and/or dremel - 80321 , Q8 Progress Notes * Tyson MARTINstephDOB:[birth year] (84 yo F)Acc No.[id number]:09/26/2024 Progress Note Patient:?Carissa MARTIN Provider:?Harjeet Ambrose DPM :1940???Age:84 Y???Sex:Female D ate:09/26/2024 Address:[address] [place], [place] [id number] Pcp:Jae Arteaga MD Subjective: * Chief Complaints: [...] Assessment: 1.?Tinea unguium - B35.1???2 .?Atherosclerosis of [place] artery of both lower extremities, with unspecified presence of clinical manifestation - I70.203???Notes :Q7(A), Q8(2B), Q9(1B,2C)???3.?Pain in right toe(s) - M79.674???4.?Pain in left toe(s) - M79.675???5.?Tinea pedis of both feet - B35.3???Specify :Acute problem, Uncomplicated (3),Rx drug management (4)??? Plan: * Treatment: 2.?Atherosclerosis of [place] artery of both lower extremities, with unspecified presence of clinical manifestation?Procedure: 73146-IVPB SKIN LESIONS, 2 TO 4 3.?Tinea pedis [...] use of a nail nipper and/or dremel-type nut grinder, to a more viable healthy nail plate or bed tissue 6-10. Silver nitrate used for any petechial bleeding as necessary. Definitive antifungal treatment options have been reviewed and discussed with the patient. The patient chooses, no pharmaceutical tx - 73572.?Keratoma Treatment:?Parring or Cutting of Benign Hyperkeratotic Lesion(s)?(-56) 2-4 Lesions - The Benign hyperkeratotic lesions, as described in exam, were pared, and/or cut utilizing a sterile 15 blade, tissue nippers, and/or dremel - 73084 , Q8.? * Procedure Codes:?62062 DEBRI DE NAIL, 6 OR MORE, Modifiers: XS 06929 TRIM SKIN LESIONS, 2 TO 4, Modifiers: [...] Ambrose DPM Date:?2023 Generated for Jazmín russo/Paulette/Kerri on:?01/16/2025 10:08 AM EST History and Physical [...]
[2025-01-16 13:25] LABS: MANUAL DIFF FLAG NO
[2025-01-16 13:49] LABS: Basophils Absolute Auto 0.1 X10*3/uL (0.0-0.2); Basophils Percent Auto 1.3 % (0-2); Eosinophils Absolute Auto 0.9 X10*3/uL (0.0-0.4); Eosinophils Percent Auto 14.1 % (0-4); Hematocrit 39.6 % (37.0-47.0); Hemoglobin 12.7 g/dl (12.0-16.0); Imm Gran Abs Auto 0.01 X10*3/uL (0.00-0.03); Imm Gran Pct Auto 0.2 % (0.0-0.4); Lymphocytes Absolute Auto 1.3 X10*3/uL (1.2-4.9); Lymphocytes Percent Auto 20.6 % (20-40); Mean Corpuscular HGB Conc 32.1 g/dl (31.0-35.0); Mean Corpuscular Hemoglobin 31.1 pg (27.0-33.0); Mean Corpuscular Volume 96.8 fL (80.0-98.0); Mean Platelet Volume 10.6 fL (9.4-12.3); Monocytes Absolute Auto 0.7 X10*3/uL (0.1-1.2); Monocytes Percent Auto 11.6 % (2-11); Neutrophils Absolute Auto 3.4 x10*3/uL (2.0-8.3); Neutrophils Percent Auto 52.2 % (45-73); Platelet Count 210 X10*3/uL (160-400); Red Blood Count 4.09 X10*6/uL (4.20-5.50); Red Cell Distribution Width 14.4 % (11.0-16.0); White Blood Count 6.4 X10*3/uL (4.8-10.8)
[2025-01-16 14:31] LABS: Alanine Aminotransferase 13 U/L (0-31); Albumin Level 3.6 g/dL (3.5-5.0); Alkaline Phosphatase 98 U/L (39-117); Anion Gap 9 (12-20); Aspartate Amino Transferase 28 U/L (5-31); Bilirubin Total 0.4 mg/dL (0.0-1.0); Blood Urea Nitrogen 20 mg/dL (9-16); Calcium 9.1 mg/dL (8.4-10.2); Carbon Dioxide 29 mmol/L (22-29); Chloride 109 mmol/L (96-108); Estimated Glomerular Filt Rate > 60; Glucose Random 86 mg/dL (60-115); Potassium 4.2 mmol/L (3.3-5.1); Sodium 143 mmol/L (135-145); TSH reflex Free T4 17.36 uIU/mL (0.32-4.0); Total Protein 6.7 g/dL (6.5-8.0)
[2025-01-16 15:42] LABS: Free T4 (Free Thyroxine) 0.77 ng/dL (0.71-1.85)
== END 2025-01-16 09:27 | disposition home or self-care (01) ==
LOC: HO.HMGCLDS 09:26
PROVIDERS: PCP Internal Medicine; Visit Provider Internal Medicine
DX: E78.9 Disorder of lipoprotein metabolism, unspecified (principal); E03.9 Hypothyroidism, unspecified; R10.13 Epigastric pain; I35.0 Nonrheumatic aortic (valve) stenosis; N32.9 Bladder disorder, unspecified; F41.1 Generalized anxiety disorder
CPT/HCPCS: 36415; 80053; 84439; 84443; 85025

== ENCOUNTER 2025-03-03 13:22 | Outpatient (AMB) | payer MEDICARE, SELFPAY ==
[2025-03-03 13:52] VITALS: BP 114/62; PULSE 63; BMI 22.7
--- NOTE | 2025-03-03 13:52 | A.OFFVIS_ITS ---
Vital Signs 03/03/25 13:52 Height 5 ft 1 in Weight 120 lb 5.958 oz BMI 22.7 BP 114/62 Blood Pressure Location Lt brachial Position Sitting Pulse 63 Pulse Source Pulse Oximeter Intake Visit Reasons: 6m follow up [employer] Lieutenant Required: No Allergies No Known Allergies Allergy (Verified 03/03/25 13:55) Medication List - Last Reconciled 03/03/25 by Cahterine Mccormick, JACKI-C aspirin (Adult Low Dose Aspirin) 81 mg PO DAILY 90 days atorvastatin 40 mg PO DAILY 90 days clonazepam 0.5 mg PO DAILY PRN clotrimazole-betamethasone 1-0.05 % 1 appl topical ONCE 30 days ketoconazole 2% 1 appl topical DAILY ketorolac 0.5% 0 drps ophthalmic (eye) levothyroxine 150 mcg PO DAILY 90 days meclizine 12.5 mg PO BID metoprolol succinate ER 12.5 mg (1/2 x 25 mg) PO DAILY omeprazole 20 mg PO DAILY 90 days sertraline 100 mg PO DAILY 90 days HPI HPI 6m follow up: Details: Carissa is an 84-year-old female past medical history of hyperlipidemia, aortic stenosis status post TAVR, left bundle branch block, PVCs who presents for foll ow-up. Today she reports she has been doing well with no concerning symptoms. She denies chest discomfort at rest or with activity. No shortness of breath, PND, orthopnea or edema. No heart palpitations, lightheadedness, presyncope, syncope. She reports doing only light physical activity. She is compliant with her medications. She ambulates slowly with a cane. [facility], [facility] Medical History PVCs (premature ventricular contractions) Left bundle branch block Closed fracture of metatarsal bone of right foot Right foot pain Heart murmur Bladder disorder Lipid disorder Dyspepsia Anxiety, generalized Depression, major, severe recurrence Other specified hypothyroidism Ischemic stroke History of stroke Surgical History Status post transcatheter aortic valve replacement (TAVR) using bioprosthesis Right-sided lacunar infarction Hx of cholecystectomy History of hysterectomy H/O: hysterectomy History of cholecystectomy Family History Mother No problems noted. Father No problems noted. Father No problems noted. Mother Stroke Brother No problems noted. Sister No problems noted. Sister No problems noted. Sister No problems noted. Son No problems noted. Son No problems noted. Social History Housing: House Alcohol intake: never Patient Tobacco Use Status: Former Tobacco user (quit over 50 years ago ) e-Cigarette/Vaping Use: Never Used Second Hand Smoke Exposure: No service: No Current occupational status: retired Cognitive needs: No Hearing needs: No Vision needs: Yes Review of Systems Const All systems reviewed & are unremarkable except as noted in HPI and below ENT Denies dizziness Card Denies chest pain, Denies chest pain at rest, Denies chest pain with activity, Denies rapid heart rate, Denies pedal edema, Denies edema, Denies leg edema, Denies lightheadedness, Denies palpitations, Denies dyspnea, Denies dyspnea on exertion and Denies orthopnea Resp Denies cough, Denies dyspnea and Denies dyspnea on exertion GI Denies hematochezia and Denies change in stool character Musc Denies abnormal gait, Denies limited range of motion, Denies muscle cramps, Denies muscle weakness, Denies numbness, Denies radiating pain into limb, Denies stiffness and Denies tingling Neuro Denies abnormal gait, Denies dizziness, Denies numbness and Denies tingling Endo Denies palpitations Physical Exam Vital Signs: Last Vital Signs Pulse 63 03/03/25 13:52 BP 114/62 03/03/25 13:52 BMI result Body Mass Index 22.7 Const General: cooperative, healthy appearing, comfortable and no acute distress Orientation/consciousness: patient oriented x3 Neck Neck: Yes normal visual inspection and Yes no JVD Resp Auscultation: clear to auscultation bilaterally, no crackles, no rales and no rhonchi Cardio Rate: regular rate Rhythm: regular rhythm Heart sounds: S1 normal heart sound present, S2 normal heart sound present, no gallops, no murmurs and no rubs Neuro General: patient oriented x3 Extrem General: Yes normal to inspection, No no pedal edema and No calf tenderness Psych Appearance: grossly normal Mental Status: mental status grossly normal Speech and movement: Normal speech and movement present Assessment & Plan Assessment & Plan (1) Status post transcatheter aortic valve replacement (TAVR) using bioprosthesis: Code(s): Z95.3 - Presence of xenogenic heart valve Category: Surgical Plan: History of aortic stenosis, severe. She underwent TAVR procedure 08/21/2023. Cardiac catheterization done 07/03/2023 had shown only minimal luminal irregularities in the LAD, otherwise normal. Her last echocardiogram done 08/13/2024 shows EF 60-65%, grade 2 diastolic dysfunction, bioprosthetic aortic valve functioning normally. Today she reports feeling good with no concerning symptoms. Endocarditis prophylaxis reviewed with her. Continue aspirin and atorvastatin. Will update echo prior to her next visit. Cardiology follow-up 6 months, sooner if needed. (2) PVCs (premature ventricular contractions): Code(s): I49.3 - Ventricular premature depolarization Category: Medical Plan: History of PVCs. A Holter monitor was done 02/08/2024 for 3 days showed sinus rhythm with average heart rate 59, 52% heart rate less than 60, frequent PVCs, total burden 11%. She was put on low-dose metoprolol. A repeat Holter done 04/15/2024 showed sinus rhythm with average heart rate 57, 52% less than 60, frequent PVCs 15.5% of time. She denies having any heart palpitations. Unable to further titrate metoprolol due to low resting heart rate. Last echocardiogram shows normal EF. Will continue current management. Discussed reduction in caffeinated beverages, maintaining good hydration and nutrition. Get adequate rest and activity as tolerated. Repeat Holter and echo prior to next visit. (3) Left bundle branch block: Code(s): I44.7 - Left bundle-branch block, unspecified Category: Medical Plan: Noted on EKGs. Not a new finding. (4) Ischemic stroke: Code(s): I63.9 - Cerebral infarction, unspecified Category: Medical Plan: History of ischemic stroke. No documented evidence of atrial fibrillation. She denies heart palpitations. Two Holter monitors as above. Plan Time spent on chart review, documentation, interview and assessment Coding Level of Care Code Est Pt Level 4 (70164) Complex EM visit Add On G2211 Diagnoses Status post transcatheter aortic valve replacement (TAVR) using bioprosthesis Z95.3 PVCs (premature ventricular contractions) I49.3 Left bundle branch block I44.7 Ischemic stroke I63.9 Time Spent (min) 30
--- OUTSIDE RECORDS SUMMARY | 2025-03-03 16:18 | XMS_ITS ---
Author Organization [facility] Address [address] [place] [address] Care Team Providers Care Furnace Loader Name Role Phone Chandler MCGRATH, [facility] Primary Care Provider Harjeet Bruno [phone] REASON FOR VISIT BUY gel Bunion Guard Grt toe Encounters Encounter Location Date Provider Diagnosis [address] [address] 06/20/2024 Harjeet Ambrose Plan Of Treatment Next Appt Details Provider Name:Harjeet Ambrose , 03/31/2025 02:45:00 PM, [address] [place], [address], Progress Notes * Carissa MARTINDOB:[birth year] (84 yo F)Acc No.[id number]:06/20/2024 Patient:?Carissa Martin :1940???Age:84 Y???Sex:Female Address:[address] [place] [address], [address] * true * Date:? Generated for Darrelli rafaela/Paulette/eTransmitting on:?03/03/2025 04:17 PM EDT
--- OUTSIDE RECORDS SUMMARY | 2025-03-03 16:18 | XMS_ITS ---
Author Organization [facility] Address [address] [place] [address] Care Team Providers Care Clerk General Name Role Phone Chandler MCGRATH, [facility] Primary Care Provider Harjeet Bruno Unavailable [phone] Allergies No Known Allergies REASON FOR VISIT [...] Ordered Date Performed Result Body Sit e 29504-JYDYGJK NAIL, 6 OR MORE 12/26/2024 N/A 31669-IBES SKIN LESIONS, 2 TO 4 12/26/2024 N/A Encounters Encounter Location Date Provider Diagnosis [facility] [address] [address] 12/26/2024 Harjeet Ambrose Atherosclerosis of [place] artery of both lower extremities, with unspecified presence of clinical manifestation I70.203 ; Tinea unguium B35.1 ; Pain in right toe(s) M79.674 ; Pain in left toe(s) M79.675 and Tinea pedis of both feet B35.3 Assessments Encounter Date Diagnosis (ICD Code) Assessment Notes Treatment Notes Treatment Clinical Notes Section Notes 12/26/2024 Atherosclerosis of [place] artery of both lower extremities, with unspecified presence of clinical manifestation (ICD-10 - I70.203) Q7(A), Q8(2B), Q9(1B,2C) 12/26/2024 Tinea unguium (ICD-10 - B35.1) 12/26/2024 Pain in right toe(s) (ICD-10 - M79.674) 12/26/2024 Pain in left toe(s) (ICD-10 - M79.675) 12/26/2024 Tinea pedis of both feet (ICD-10 - B35.3) Plan Of Treatment Pending Test Test Name Order Date 02038-AYKYZAQ NAIL, 6 OR MORE 12/26/2024 64480-DYHW SKIN LESIONS, 2 TO 4 12/26/19 25 Next Appt Details Follow Up: prn, Reason: Provider Name:Harjeet Hallunier , 03/31/2025 02:45:00 PM, [address] [place] [address], [address], Procedure Notes * Category Sub-Category Detail Notes [...] use of a nail nipper and/or dremel-type lap grinder, to a more viable healthy nail [...] to maintain effectiveness in symptomatic relief - 41261 Keratoma Treatment Parring or Cutting o f [...] instrumentation by the physician of record - 06008, Q8 Progress Notes * Omaira MARTINellaDOB:[birth year] (84 yo F)Acc No.[id number]:12/26/2024 Progress Note Patient:?Carissa MARTIN Provider:?Harjeet Ambrose DPM :1940???Age:84 Y???Sex:Female D ate:12/26/2024 Address:[address] [place], [place] [phone] Pcp:Jae Arteaga MD Subjective: * Chief Complaints: [...] and reconciled with the patient * Allergies:?N.K.D.A.yes[Aller tereas Verified] Objective: * Vitals:?Ht: 5 ft 3 [...] Assessment: 1.?Tinea unguium - B35.1???2 .?Atherosclerosis of [place] artery of both lower extremities, with unspecified presence of clinical manifestation - I70.203 (Primary)???Notes :Q7(A), Q8(2B), Q9(1B,2C)???3.?Pain in right toe(s) - M79.674???4.?Pain in left toe(s) - M79.675???5.?Tinea pedis of both feet - B35.3???Specify :Acute problem, Stable Response to treatment - Improvement??? Plan: * Treatment: 2.?Tinea unguium?Procedure: 29228-YTLPCAT NAIL, 6 OR MORE * Procedures:?Debride Nail [...] use of a nail nipper and/or dremel-type lap grinder, to a more viable healthy nail [...] to maintain effectiveness in symptomatic relief - 15114.?Keratoma Treatment:?Parring or Cutting of Benign Hyperkeratotic Lesion(s)?(-56) [...] instrumentation by the physician of record - 66604, Q8.? * Procedure Codes:?81687 DEBRI DE NAIL, 6 OR MORE, Modifiers: XS 20241 TRIM SKIN LESIONS, 2 TO 4, Modifiers: [...] Ambrose DPM Date:?2024 Generated for Jazmín russo/Paulette/eTcristina on:?03/03/2025 04:18 PM EDT History and Physical Notes * HPI (History of Present Illness) Category Sub-Category Detail Notes Category Not es Skin problems Treatments: Medication (Cicl opirox Olamine 0.77 Cream), states adherence to recommended treatment application At Risk footcare Pt States Last PCP Visit: Date: 09/19/2024 [facility] Patient accompanied by, , MARTÍN, who is [...]
--- OUTSIDE RECORDS SUMMARY | 2025-03-03 16:18 | XMS_ITS ---
Author Organization [facility] Address [address] [place] [address] Care Team Providers Care Associate Sales Name Role Phone Chandler MCGRATH, [facility] Primary Care Provider Harjeet Bruno Unavailable [phone] Allergies No Known Allergies REASON FOR VISIT [...] Ordered Date Performed Result Body Sit e 42808-EZICFTW NAIL, 6 OR MORE 09/26/2024 N/A 92147-GRBZ SKIN LESIONS, 2 TO 4 09/26/2024 N/A Encounters Encounter Location Date [facility] [address] [place] [address] 09/26/2024 Harjeet Ambrose Atherosclerosis of [place] artery of both lower extremities, with unspecified presence of clinical manifestation I70.203 ; Tinea unguium B35.1 ; Pain in right toe(s) M79.674 ; Pain in left toe(s) M79.675 and Tinea pedis of both feet B35.3 Assessments Encounter Date Diagnosis (ICD Code) Assessment Notes Treatment Notes Treatment Clinical Notes Section Notes 09/26/2024 Atherosclerosis of [place] artery of both lower extremities, with unspecified [...] days Pending Test Test Name Order Date 14148-KWORKVI NAIL, 6 OR MORE 09/26/2024 93356-SOFO SKIN LESIONS, 2 TO 4 09/26/20 24 Next Appt Details Follow Up: prn, Reason: Provider Name:Harjeet Ambrose , 03/31/2025 02:45:00 PM, [address] [place], [address], Procedure Notes * Category Sub-Category Detail Notes [...] use of a nail nipper and/or dremel-type thread grinder tool, to a more viable healthy nail plate or bed tissue 6-10. Silver nitrate used for any petechial bleeding as necessary. Definitive antifungal treatment options have been reviewed and discussed with the patient. The patient chooses, no pharmaceutical tx - 63015 Keratoma Treatment Parring or Cutting o f Benign Hyperkeratotic Lesion(s) (-56) 2-4 Lesions - The Benign hyperkeratotic lesions, as described in exam, were pared, and/or cut utilizing a sterile 15 blade, tissue nippers, and/or dremel - 06869 , Q8 Progress Notes * Tyson MARTINstephDOB:[birth year] (84 yo F)Acc No.[id number]:09/26/2024 Progress Note Patient:?Carissa MARTIN Provider:?Harjeet Ambrose DPM :1940???Age:84 Y???Sex:Female D ate:09/26/2024 Address:[address] [place], [place] [address] Pcp:Jae Arteaga MD Subjective: * Chief Complaints: [...] Assessment: 1.?Tinea unguium - B35.1???2 .?Atherosclerosis of [place] artery of both lower extremities, with unspecified presence of clinical manifestation - I70.203???Notes :Q7(A), Q8(2B), Q9(1B,2C)???3.?Pain in right toe(s) - M79.674???4.?Pain in left toe(s) - M79.675???5.?Tinea pedis of both feet - B35.3???Specify :Acute problem, Uncomplicated (3),Rx drug management (4)??? Plan: * Treatment: 2.?Atherosclerosis of [place] artery of both lower extremities, with unspecified presence of clinical manifestation?Procedure: 48869-CGWQ SKIN LESIONS, 2 TO 4 3.?Tinea pedis [...] use of a nail nipper and/or dremel-type thread grinder tool, to a more viable healthy nail plate or bed tissue 6-10. Silver nitrate used for any petechial bleeding as necessary. Definitive antifungal treatment options have been reviewed and discussed with the patient. The patient chooses, no pharmaceutical tx - 17181.?Keratoma Treatment:?Parring or Cutting of Benign Hyperkeratotic Lesion(s)?(-56) 2-4 Lesions - The Benign hyperkeratotic lesions, as described in exam, were pared, and/or cut utilizing a sterile 15 blade, tissue nippers, and/or dremel - 50013 , Q8.? * Procedure Codes:?18799 DEBRI DE NAIL, 6 OR MORE, Modifiers: XS 37019 TRIM SKIN LESIONS, 2 TO 4, Modifiers: [...] Ambrose DPM Date:?2023 Generated for Jazmín russo/Paulette/Kerri on:?03/03/2025 04:18 PM EDT History and Physical [...]
--- OUTSIDE RECORDS SUMMARY | 2025-03-03 16:18 | XMS_ITS | Patient Health Record ---
Author Organization [employer] [facility] Address [address] [place] [address] Care Team Providers Care Delivery And Mail Sorter Name Role Phone DR JULIENNE GARCIA Primary Care Provider Jo Ann Young Unavailable [phone] Reason For Referral No Information Medications Medication SIG (Take, Route, Fr equency, Duration) Notes Start Date End Date Status Fish Oil 1 ORAL daily for -3 Doe-MJ 01/16/2012 Active Levoxyl 88MCG 1 ORAL DAILY for -3 Doe-MJ 01/16/2012 Active Lotrisone cream 45 GM External twice daily for 5 Ode-MJ 0 01/22/2013 Active Omeprazole 40MG 1 ORAL daily for -3 Doe-MJ 01/16/2012 Active Vitamin D3 1000 IU 1 ORAL daily for -3 Doe-MJ 01/16/2012 Active Sertraline HCl 50 MG 1 tablet Orally Once a day Active Calcium 1 ORAL daily for -3 Doe-MJ 01/16/2012 Active Problems Problem Type SNOMED Code ICD Code Onset Dates Problem Status W/U Status Risk Notes Problem 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 Major Problem Hypothyroidism (69778876) Unspecified hypothyroidism (244.9) Active confirmed Major Problem Hyperlipidemia (12455941) Other and unspecified hyperlipidemia (272.4) Active confirmed Major Problem Obesity (999521696) Obesity, unspecified (278.00) Active confirmed Major Problem Depressive disorder (52892664) Depressive disorder, not elsewhere classified (311) Active confirmed Major Problem Menopausal symptom (81614381) Symptomatic menopausal or female climacteric states (627.2) Active confirmed Major Problem Backache (158702695) Unspecified backache (724.5) Active confirmed Major Problem Insomnia (103876392) Insomnia, unspecified (780.52) Active confirmed Major Problem Gynecological examination normal (198533217623795) Routine gynecological examination (V72.31) Active confirmed Problem Screening for malignant neoplasm of colon (094641224) Special screening for malignant neoplasms, colon (V76.51) Active confirmed Major Plan Of Treatment Pending Test Test Name Order Date MAMMOGRAM, SCREENING 02/15/2015 Insurance Providers Payer Name Payer Address Payer Phone Subscriber Number Group Number Insured Name Patient Relationship to Insured Coverage Start Date Coverage End Date [facility] MEDICARE SOLUTIONS [address] [address] [place] [address] [id number] THANG RODRIGUEZ Self - patient is the insured Medical (General) History Medical History History ICD Code Depressive disorder, not elsewhere class ified 311 Other and unspecified hyperlipidemia 272 .4 Kaposi's sarcoma of unspecified site 176 .9 Unspecified hypothyroidism 244.9 GERD CYSTORECTOCELE Surgical History Surgery Date(Month/Year) cholecystectomy MAGAN/BSO Hospitalization History Reason Date(Month/Year) SEE SURGICAL HX
--- OUTSIDE RECORDS SUMMARY | 2025-03-03 16:18 | XMS_ITS | Patient Health Record ---
Author Organization [facility] [place] Address [address] [place] [address] Care Team Providers Care Calculation Clerk Name Role Phone Chandler MCGRATH, [facility] Primary Care Provider Harjeet Bruno Unavailable [phone] Allergies No Known Allergies Reason For Referral [...] W/U Status Risk Notes Problem Atherosclerosis of venetie ira arteries of the extremities ([id number]) Atherosclerosis of venetie ira artery of both lower extremities, with unspecified presence of clinical manifestation (I70.203) Active confirmed Q7(A), Q8(2B), Q9(1B,2 C) Vital Signs Blood pressure diastolic 80 mm Hg 12/26/2024 Height 5 ft 3 in in 12/26/2024 Blood pressure systolic 120 mm Hg 12/26/2024 Weight 125 lbs 12/26/2024 BMI 22.14 kg/m2 12/26/2024 Procedures Procedure Date Ordered Date Performed Result Body Sit e 79920-RJCWMCU NAIL, 6 OR MORE 06/20/2024 N/A 93222-DZKL SKIN LESIONS, 2 TO 4 06/20/2024 N/A 73934-OZYKEIL NAIL, 6 OR MORE 09/26/2024 N/A 04093-KNQD SKIN LESIONS, 2 TO 4 09/26/2024 N/A 58886-XTYKCXB NAIL, 6 OR MORE 12/26/2024 N/A 84453-YOIA SKIN LESIONS, 2 TO 4 12/26/2024 N/A Encounters Encounter Location Date Provider Diagnosis [address] [address] 06/20/2024 Harjeet Ambrose Atherosclerosis of venetie ira artery of both lower extremities, with unspecified presence of clinical manifestation I70.203 ; Tinea unguium B35.1 ; Pain in right toe(s) M79.674 ; Pain in left toe(s) M79.675 ; Pain in right foot M79.671 ; Pain in right ankle and joints of right foot M25.571 ; Bursitis of right foot M77.51 and Hallux valgus (acquired), right foot M20.[address] [address] 09/26/2024 Harjeet Ambrose Atherosclerosis of ven[place]ie ir[place] artery of both lower extremities, with unspecified presence of clinical manifestation I70.203 ; Tinea unguium B35.1 ; Pain in right toe(s) M79.674 ; Pain in left toe(s) M79.675 and Tinea pedis of both feet B35.[address] [address] 12/26/2024 Harjeet Ambrose Atherosclerosis of ven[place]ie ir[place] artery of both lower extremities, with unspecified presence of clinical manifestation I70.203 ; Tinea unguium B35.1 ; Pain in right toe(s) M79.674 ; Pain in left toe(s) M79.675 and Tinea pedis of both feet B35.[address] [address] 06/13/2024 Harjeet Ambrose [facility] [place] [address] [place] [address] 06/20/2024 Harjeet Ambrose Assessments Encounter Date Diagnosis (ICD Code) Assessment Notes Treatment Notes Treatment Clinical Notes Section Notes 06/20/2024 Atherosclerosis of venetie ira artery of both lower extremities, with unspecified presence of clinical manifestation (ICD-10 - I70.203) 09/26/2024 Tinea unguium (ICD-10 - B35.1) 09/26/2024 Atherosclerosis of ven[place]ie ira artery of both lower extremities, with unspecified presence of clinical manifestation (ICD-10 - I70.203) Q7(A), Q8(2B), Q9(1B,2C) 12/26/2024 Tinea unguium (ICD-10 - B35.1) 12/26/2024 Atherosclerosis of ven[place]ie ira artery of both lower extremities, with unspecified [...] Treatment Pending Test Test Name Order Date 95070-ZMXTJRY NAIL, 6 OR MORE 06/20/2024 65779-GCFDMCO NAIL, 6 OR MORE 09/26/2024 71561-UTYINEW NAIL, 6 OR MORE 12/26/2024 65124-GPMU SKIN LESIONS, 2 TO 4 12/26/19 25 59243-GLCF SKIN LESIONS, 2 TO 4 09/26/20 24 65479-JPNQ SKIN LESIONS, 2 TO 4 06/20/20 24 Next Appt Details Provider Name:Harjeet Shukri Ambrose , 03/31/2025 02:45:00 PM, [address] [place], [address], Insurance Providers Payer Name Payer Address Payer Phone Subscriber Number Group Number Insured Name Patient Relationship to Insured Coverage Start Date Coverage End Date [employer] Medicare [id number] [address] [address] [place] [address] [id number] Carissa Martin Self - patient is the insured Medical (General) History Medical History History ICD Code Cancer Cataracts covid-19 Depression Gall bladder problems Heart disease Stroke thyroid Measles Heart valve conditions/replacement Surgical History Surgery Date(Month/Year)
== END 2025-03-03 14:25 | disposition home or self-care (01) ==
LOC: HO.HCS 13:22
PROVIDERS: PCP Internal Medicine; Visit Provider Nurse Practitioner Family
DX: Z95.3 Presence of xenogenic heart valve (principal); I49.3 Ventricular premature depolarization; I44.7 Left bundle-branch block, unspecified; I63.9 Cerebral infarction, unspecified
CPT/HCPCS: 99214; G2211

== ENCOUNTER → 2025-03-03 13:22 | Outpatient (BNVA) | payer MEDICARE, SELFPAY | PROVIDERS: PCP Internal Medicine; Visit Provider Nurse Practitioner Family | DX: I49.3 Ventricular premature depolarization (principal); I44.7 Left bundle-branch block, unspecified; Z95.3 Presence of xenogenic heart valve; Z86.73 Personal history of transient ischemic attack (TIA), and cerebral infarction without residual deficits | CPT/HCPCS: 99212 ==

== ENCOUNTER 2025-03-11 14:19 | Outpatient (REF) | payer MEDICARE, SELFPAY ==
[2025-03-11 18:18] LABS: Free T4 (Free Thyroxine) 1.21 ng/dL (0.71-1.85)
== END 2025-03-11 14:20 | disposition home or self-care (01) ==
LOC: HO.HMGCLDS 14:19
PROVIDERS: PCP Internal Medicine; Visit Provider Internal Medicine
DX: E03.9 Hypothyroidism, unspecified (principal)
CPT/HCPCS: 36415; 84439; 84443

== ENCOUNTER 2025-04-22 11:28 | Outpatient (AMB) | payer MEDICARE, SELFPAY ==
[2025-04-22 11:30] VITALS: BP 116/62; PULSE 66; RESP 15; TEMP 36.5; O2SAT 93; BMI 23.3
--- NOTE | 2025-04-22 11:30 | A.OFFPC_ITS ---
Vital Signs 04/22/25 11:30 Height 5 ft 1 in Weight 123 lb 6 oz BMI 23.3 BP 116/62 Blood Pressure Location Lt brachial Position Sitting Respiration 15 Pulse 66 Pulse Source Pulse Oximeter Temp 97.7 F Temp Source Oral Pulse Oximetry (%) 93 Oxygen Delivery Method Room Air Intake Visit Reasons: follow up Allergies No Known Allergies Allergy (Verified 04/22/25 11:31) Medication List - Last Reconciled 04/22/25 by Jae Arteaga MD aspirin (Adult Low Dose Aspirin) 81 mg PO DAILY 90 days atorvastatin 40 mg PO DAILY 90 days clonazepam 0.5 mg PO DAILY PRN clotrimazole-betamethasone 1-0.05 % 1 appl topical ONCE 30 days ketoconazole 2% 1 appl topical DAILY ketorolac 0.5% 0 drps ophthalmic (eye) levothyroxine 150 mcg PO DAILY 90 days meclizine 12.5 mg PO BID metoprolol succinate ER 12.5 mg (1/2 x 25 mg) PO DAILY omeprazole 20 mg PO DAILY 90 days sertraline 100 mg PO DAILY 90 days Tobacco use date assessed: 04/22/25 Fall risk assessment: No Falls in past year Last assessed Fall Risk: 04/22/25 Dental Screening Dental Screen Date: 04/22/25 Did you have a dental visit in the last 12 months?: No Did you have a dental problem in the last 6 months where you did not have access to dental care?: No Was dental information given to patient?: Patient declined HPI follow up HPI Details Regular follow-up appointment - The patient is an 85-year-old female p resenting with concerns regarding tendinitis of the left forearm and thumb. - The patient reports experiencing pain in the left forearm and thumb, which has been attributed to overuse and possibly associated with arthritis. Patient hold her cane in her left hand while walking . - The patient reports a previous episode of compromised kidney function which subsequently returned to normal levels. - Recently diagnosed with a bladder diso rder, for which she has commenced a new medication. Through [facility], She comments on symptomatic improvement in urinary problems following treatment. - The patient has a history of thyroid a bnormalities, previously identified through laboratory tests in February, resulting in adjustments to her medication regimen. Medical History: - Tendinitis of left forearm and thumb - Arthritis - Bladder incontinence - Abnormal thyroid function secondary to hypothyroidism - Past laboratory findings showing initi al compromised kidney function, which normalized - Depression - Behavioral insomnia - lipid disorder Medications: - Aspirin - Atorvastatin - Levothyroxine for thyroid function - Meclizine - Omeprazole - Sertraline for depression - Clonazepam, taken at night for insomni a - Unspecified medication for bladder dis order Social History: - The patient generally prefers to stay indoors due to discomfort with warm weather. - Plans to travel to [facility] with famil y, excluding spouse due to difficulty in mobility. Diagnostic Results: - Labs: Recent CBC was normal; kidney fu nctions have returned to normal levels from a previously compromised state. Liver enzymes are within normal range. Recent thyroid tests returned slightly abnormal. Problem List - Tendinitis of the left forearm and lopez mb - Arthritis - Urinary bladder incontinence - hypothyroidism - Behavioral insomnia - Depression - anxiety disorder - lipid disorder - use of cane for ambulation - benign positional vertigo Patient Instructions - Use Tylenol and a heating pad to allev iate pain in the left forearm and thumb. - Repeat blood tests two days before the next appointment in three months. - Bring the medication bottle for the bl adder disorder to the next appointment for chart documentation. Review of Systems - General: No fever no chills - Neurological: No headaches no dizziness - Ear nose throat: No sore throat no hearing difficulty no ear pain - Cardiovascular: No syncope, no chest pain, no palpitations - Gastrointestinal: No nausea vomiting or diarrhea - Endocrine: No polydipsia no heat intolerance - Genitourinary: No dysuria , no blood in urine Physical Exam General: No acute distress HEENT: No acute findings Neck: Supple Respiratory system: Able to talk in full sentences, no audible wheeze Cardiovascular: S1-S2 regular in rate and rhythm Gastrointestinal: No pain Extremities: Tenderness in the left forearm and thumb due to tendon inflammation , hand fingers full range of motion strength equal both sides 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: Alert awake oriented x3 motor sensory intact Skin: Normal turgor [facility] Medical History PVCs (premature ventricular contractions) Left bundle branch block Closed fracture of metatarsal bone of right foot Right foot pain Heart murmur Bladder disorder Lipid disorder Dyspepsia Anxiety, generalized Depression, major, severe recurrence Other specified hypothyroidism Ischemic stroke History of stroke Surgical History Status post transcatheter aortic valve replacement (TAVR) using bioprosthesis Right-sided lacunar infarction Hx of cholecystectomy History of hysterectomy H/O: hysterectomy History of cholecystectomy Family History Mother No problems noted. Father No problems noted. Father No problems noted. Mother Stroke Brother No problems noted. Sister No problems noted. Sister No problems noted. Sister No problems noted. Son No problems noted. Son No problems noted. Social History Housing: House Alcohol intake: never Patient Tobacco Use Status: Former Tobacco user (quit over 50 years ago ) e-Cigarette/Vaping Use: Never Used Second Hand Smoke Exposure: No service: No Current occupational status: retired Cognitive needs: No Hearing needs: No Vision needs: Yes Questionnaire PHQ-9 Over the last 2 weeks, how often have you been bothered by any of the following problems? 1. Little interest or pleasure in doing things: several days 2. Feeling down, depressed, or hopeless: not at all 3. Trouble falling or staying asleep, or sleeping too much: several days 4. Feeling tired or having little energy: several days 5. Poor appetite or overeating: several days 6. Feeling bad about yourself - or that you are a failure or have let yourself or your family down: not at all 7. Trouble concentrating on things, such as reading the newspaper or watching television: several days 8. Moving or speaking so slowly that other people could have noticed. Or the opposite - being so fidgety or restless that you have been moving around a lot more than usual: not at all 9. Thoughts that you would be better off or of hurting yourself in some way: not at all Total score: 5 Depression Screening Interpretation: Negative Depression Screening Done: Yes 85966 - PHQ-9 Billing: Yes Source: Developed by Drs. Fortino Franklin, Elda Cotto, Gurdeep Jones and colleagues, with an educational david from [employer]. Thrive Questionnaire Date Thrive assessed: 04/22/25 I am a: Patient What is your living situation today?: I have a steady place to live Within the past 12 months, did the food you bought not last and you didn't have the money to get more?: Never true Within the past 12 months, did you worry whether your food would run out before you got money to buy more?: Never true Do you have trouble paying for medicines?: No Do you have trouble getting transportation to medical appointments?: No Do you have trouble paying your heating and electricity bill?: No Do you have trouble taking care of your child, family member or friend?: No Do you have trouble with day-to-day activities such as bathing, preparing meals, shopping, managing finances, etc.?: No Are you currently unemployed and looking for a job?: No Are you interested in more education?: No Please select the resources that you would like help with: None Currently or been in a relationship where the following occur: No concerns reported THRIVE Score: 0 AUDIT C Alcohol Use Questionnaire (AUDIT-C) 1. How often do you have a drink containing alcohol?: Never 3. How often do you have six or more drinks on one occasion?: Never Total Score: 0 Score Reviewed/Action Taken: Yes ADELFO-7 AMB Questionnaire ADELFO-7 Date ADELFO - 7 assessed: 04/22/25 Feeling nervous, anxious, or on edge: 0 = Not at all Not being able to stop or control worryin = Several days Worrying too much about different things: 1 = Several days Trouble relaxin = Several days Being so restless that it is hard to sit still: 0 = Not at all Becoming easily annoyed or irritable: 0 = Not at all Feeling afraid as if something awful might happen: 0 = Not at all Total ADELFO-7 score (0-4 normal; 5-9 mild; 10-14 moderate; 15-21 severe): 3 Source: Developed by Drs. Fortino Franklin, Elda Cotto, Gurdeep Jones and colleagues, with an educational david from [employer]. ADELFO-7 Assessment Billing ADELFO-7 Assessment Tool: ADELFO-7 Assessment 74066 Physical exam (Primary Care) Vital Signs: Last Vital Signs Temp 97.7 F 04/22/25 11:30 Pulse 66 04/22/25 11:30 Resp 15 04/22/25 11:30 BP 116/62 06/04/25 11:30 Pulse Ox 93 04/22/25 11:30 Oxygen Delivery Method Room Air 04/22/25 11:30 BMI result Body Mass Index 23.3 Tobacco/Smoking Status: Tobacco use Status Tobacco use date assessed 04/22/25 04/22/25 11:33 Patient Tobacco Use Status Former Tobacco user (quit 04/22/25 11:33 over 50 years ago ) e-Cigarette/Vaping Use Never Used 04/22/25 11:33 PHQ-9: PHQ-9 Score PHQ-9: Total score 5 04/22/25 11:54 Depression Screening Interpretation: Negative Thrive Assessment: Date of Thrive Assessment Date Thrive assessed 04/22/25 04/22/25 11:33 Currently or been in a relationship where the following occur: No concerns reported Coding Level of Care Code Est Pt Level 4 (24236) Complex EM visit Add On G2211 Diagnoses Tendinitis of thumb M77.8 Hypothyroidism, unspecified type E03.9 Hypothyroidism type: unspecified Lipid disorder E78.9 Other specified hypothyroidism E03.8 Severe episode of recurrent major depressive disorder, without psychotic features F33.2 Psychotic features: without psychotic features Dyspepsia R10.13 Bladder disorder N32.9 General unsteadiness R26.81 Dizziness R42 Anxiety, generalized F41.1 Additional Codes ADELFO-7 Assessment Billing - ADELFO-7 Assessment Tool: ADELFO-7 Assessment 66689 ([id number]) PHQ-9 - 15026 - PHQ-9 Billing: Yes ([id number]) Assessment & Plan Assessment & Plan (1) Tendinitis of thumb: Code(s): M77.8 - Other enthesopathies, not elsewhere classified Category: Medical (2) Hypothyroidism: Code(s): E03.9 - Hypothyroidism, unspecified Category: Medical Qualifiers: Hypothyroidism type: unspecified Qualified Code(s): E03.9 - Hypothyroid ism, unspecified (3) Lipid disorder: Code(s): E78.9 - Disorder of lipoprotein metabolism, unspecified Category: Medical (4) Other specified hypothyroidism: Code(s): E03.8 - Other specified hypothyroidism Category: Medical (5) Depression, major, severe recurrence: Code(s): F33.2 - Major depressive disorder, recurrent severe without psychotic features Category: Medical Qualifiers: Psychotic features: without psychotic features Qualified Code(s): F33.2 - Major depressive disorder, recurrent severe without psychotic features (6) Lipid disorder: Code(s): E78.9 - Disorder of lipoprotein metabolism, unspecified Category: Medical (7) Dyspepsia: Code(s): R10.13 - Epigastric pain Category: Medical (8) Bladder disorder: Code(s): N32.9 - Bladder disorder, unspecified Category: Medical (9) General unsteadiness: Code(s): R26.81 - Unsteadiness on feet Category: Medical (10) Dizziness: Code(s): R42 - Dizziness and giddiness Category: Medical (11) Anxiety, generalized: Code(s): F41.1 - Generalized anxiety disorder Category: Medical (12) Bladder disorder: Code(s): N32.9 - Bladder disorder, unspecified Category: Medical Plan Regular follow-up appointment - The patient is an 85-year-old female presenting with concerns regarding tendinitis of the left forearm and thumb. - The patient reports experiencing pain in the left forearm and thumb, which has been attributed to overuse and possibly associated with arthritis. Patient hold her cane in her left hand while walking . - The patient reports a previous episode of compromised kidney function which subsequently returned to normal levels. - Recently diagnosed with a bladder disorder, for which she has commenced a new medication. Through Urology [facility], She comments on symptomatic improvement in urinary problems following treatment. - The patient has a history of thyroid abnormalities, previously identified through laboratory tests in February, resulting in adjustments to her medication regimen. Medical History: - Tendinitis of left forearm and thumb - Arthritis - Bladder incontinence - Abnormal thyroid function secondary to hypothyroidism - Past laboratory findings showing initial compromised kidney function, which normalized - Depression - Behavioral insomnia - lipid disorder Medications: - Aspirin - Atorvastatin - Levothyroxine for thyroid function - Meclizine - Omeprazole - Sertraline for depression - Clonazepam, taken at night for insomnia - Unspecified medication for bladder disorder Social History: - The patient generally prefers to stay indoors due to discomfort with warm weather. - Plans to travel to [facility] with family, excluding spouse due to difficulty in mobility. Diagnostic Results: - Labs: Recent CBC was normal; kidney functions have returned to normal levels from a previously compromised state. Liver enzymes are within normal range. Recent thyroid tests returned slightly abnormal. Problem List - Tendinitis of the left forearm and thumb - Arthritis - Urinary bladder incontinence - hypothyroidism - Behavioral insomnia - Depression - anxiety disorder - lipid disorder - use of cane for ambulation - benign positional vertigo Patient Instructions - Use Tylenol and a heating pad to alleviate pain in the left forearm and thumb. - Repeat blood tests two days before the next appointment in three months. - Bring the medication bottle for the bladder disorder to the next appointment for chart documentation. Orders: Orders Vitamin D 25-OH (D2 and D3) Today E03.9 - Hypothyroidism, unspecified, E78.9 - Disorder of lipoprotein metabolism, unspecified, I35.0 - Nonrheumatic aortic (valve) stenosis, N32.9 - Bladder disorder, unspecified, R10.13 - Epigastric pain LDL Cholesterol Direct Today E03.9 - Hypothyroidism, unspecified, E78.9 - Disorder of lipoprotein metabolism, unspecified, I35.0 - Nonrheumatic aortic (valve) stenosis, N32.9 - Bladder disorder, unspecified, R10.13 - Epigastric pain TSH reflex Free T4 Today E03.9 - Hypothyroidism, unspecified, E78.9 - Disorder of lipoprotein metabolism, unspecified, I35.0 - Nonrheumatic aortic (valve) stenosis, N32.9 - Bladder disorder, unspecified, R10.13 - Epigastric pain Complete Blood Count Auto Diff Today E03.9 - Hypothyroidism, unspecified, E78.9 - Disorder of lipoprotein metabolism, unspecified, I35.0 - Nonrheumatic aortic (valve) stenosis, N32.9 - Bladder disorder, unspecified, R10.13 - Epigastric pain Comprehensive Met. Panel Today E03.9 - Hypothyroidism, unspecified, E78.9 - Disorder of lipoprotein metabolism, unspecified, I35.0 - Nonrheumatic aortic (valve) stenosis, N32.9 - Bladder disorder, unspecified, R10.13 - Epigastric pain Vitamin B12 Today E03.9 - Hypothyroidism, unspecified, E78.9 - Disorder of lipoprotein metabolism, unspecified, I35.0 - Nonrheumatic aortic (valve) stenosis, N32.9 - Bladder disorder, unspecified, R10.13 - Epigastric pain
--- OUTSIDE RECORDS SUMMARY | 2025-04-22 12:25 | XMS_ITS | Patient Health Record ---
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 Major Problem Hypothyroidism (75551093) Unspecified hypothyroidism (244.9) Active confirmed Major Problem Hyperlipidemia (18095657) Other and unspecified hyperlipidemia (272.4) Active confirmed Major Problem Obesity (670375317) Obesity, unspecified (278.00) Active confirmed Major Problem Depressive disorder (22889086) Depressive disorder, not elsewhere classified (311) Active confirmed Major Problem Menopausal symptom (61587187) Symptomatic menopausal or female climacteric states (627.2) Active confirmed Major Problem Backache (395777142) Unspecified backache (724.5) Active confirmed Major Problem Insomnia (660493851) Insomnia, unspecified (780.52) Active confirmed Major Problem Gynecological examination normal (857788433076590) Routine gynecological examination (V72.31) Active confirmed Problem Screening for malignant neoplasm of colon (772470804) Special screening for malignant neoplasms, colon (V76.51) Active confirmed Major Plan Of Treatment Pending Test Test Name Order Date MAMMOGRAM, SCREENING 02/15/2015 Insurance Providers Payer Name Payer Address Payer Phone Subscriber Number Group Number Insured Name Patient Relationship to Insured Coverage Start Date Coverage End Date [facility] MED[employer] SOL[employer]IONS [address] [address] [place] [address] [id number] THANG RODRIGUEZ Self - patient is the insured Medical (General) History Medical History History ICD Code Depressive disorder, not elsewhere class ified 311 Other and unspecified hyperlipidemia 272 .4 Kaposi's sarcoma of unspecified site 176 .9 Unspecified hypothyroidism 244.9 GERD CYSTORECTOCELE Surgical History Surgery Date(Month/Year) cholecystectomy MAGAN/BSO Hospitalization History Reason Date(Month/Year) SEE SURGICAL HX
== END 2025-04-22 11:57 | disposition home or self-care (01) ==
LOC: HO.HMCC 11:29
PROVIDERS: PCP Internal Medicine; Visit Provider Internal Medicine
DX: E78.9 Disorder of lipoprotein metabolism, unspecified (principal); F33.2 Major depressive disorder, recurrent severe without psychotic features; N32.9 Bladder disorder, unspecified; M77.8 Other enthesopathies, not elsewhere classified; E03.9 Hypothyroidism, unspecified; E03.8 Other specified hypothyroidism; R10.13 Epigastric pain; R26.81 Unsteadiness on feet; R42 Dizziness and giddiness; F41.1 Generalized anxiety disorder

== ENCOUNTER → 2025-04-22 11:28 | Outpatient (BNVA) | payer MEDICARE, SELFPAY | PROVIDERS: PCP Internal Medicine; Visit Provider Internal Medicine | DX: M77.8 Other enthesopathies, not elsewhere classified (principal); E03.9 Hypothyroidism, unspecified; E78.9 Disorder of lipoprotein metabolism, unspecified; E03.8 Other specified hypothyroidism; F33.2 Major depressive disorder, recurrent severe without psychotic features; R10.13 Epigastric pain; N32.9 Bladder disorder, unspecified; R26.81 Unsteadiness on feet; R42 Dizziness and giddiness; F41.1 Generalized anxiety disorder | CPT/HCPCS: 96127; 99212 ==

== ENCOUNTER 2025-05-19 12:53 | Outpatient (AMB) | payer MEDICARE, SELFPAY ==
--- NOTE | 2025-05-19 13:08 | A.OFFVIS_ITS ---
Vital Signs 05/19/25 13:10 Height 5 ft 1 in Intake Visit Reasons: 3 m Allergies No Known Allergies Allergy (Verified 05/19/25 13:12) Medication List - Last Reconciled 05/19/25 by Geneva Del Real CNP aspirin (Adult Low Dose Aspirin) 81 mg PO DAILY 90 days atorvastatin 40 mg PO DAILY 90 days clonazepam (Klonopin) 0.5 mg PO BEDTIME clotrimazole-betamethasone 1-0.05 % 1 appl topical ONCE 30 days ketoconazole 2% 1 appl topical DAILY ketorolac 0.5% 0 drps ophthalmic (eye) levothyroxine 150 mcg PO DAILY 90 days meclizine 12.5 mg PO BID metoprolol succinate ER 12.5 mg (1/2 x 25 mg) PO DAILY omeprazole 20 mg PO DAILY 90 days sertraline 100 mg PO DAILY 90 days HPI Comments Details: She was here with her hotvcfiw-jq-vzj (Tran). She was waking up with some slight dizziness a few times a week. It was tolerable and she was able to function. It could last up to half a day. About once a week, she had more severe dizziness and would take meclizine 12.5mg as needed which helped a little. Dizzy spells were now happening only in the morning when she woke up. She was taking clonazepam at bedtime and had not tried meclizine at night. Unsteady at times, but no falls. She was walking with cane when outside of home. Stress was still there. Sleep was up and down. Vision was about the same. No new stroke-like symptoms. Previously, between 08/2024-02/2025, she was having more dizzy spells that could happen at any time. It felt like everything around her was moving. She was walking with cane when outside of home. She was still under some stress. Her was dealing with some health issues. 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 Left peripheral vision is not as good. Follows with ophthalmology. No feeling of crawling in the head for some time now. Went to therapy for balance, but it did not help. Had aortic valve replacement on 08/21/2023, feeling better with more energy. Had routine eye exam earlier in 2023, release engineer was not happy with her peripheral vision and ordered brain MRI, completed in 02/2024. She had a minor stroke like episode in 01/2018 with garbled speech that cleared in about 90 min. She was hospitalized at [facility] and had an MRI and a carotid Doppler. She has been on atorvastatin and daily aspirin. In 02/2018, she started dizzy spells, which are not vertiginous, characterized by a feeling of being off balance when she walks and sometimes even sitting down, she feels she is a little woozy but does not fall and does not feel like she is going to pass out. These episodes last from a half hour to 2 hours. No triggers have been identified. There are no other associated symptoms with that such as double vision, palpitation, chest pain, diaphoresis, or numbness. [facility] Medical History GERD (gastroesophageal reflux disease) Hypothyroidism PVCs (premature ventricular contractions) Left bundle branch block Closed fracture of metatarsal bone of right foot Right foot pain Heart murmur Bladder disorder Lipid disorder Dyspepsia Anxiety, generalized Depression, major, severe recurrence Other specified hypothyroidism Ischemic stroke History of stroke Surgical History Status post transcatheter aortic valve replacement (TAVR) using bioprosthesis Right-sided lacunar infarction Hx of cholecystectomy History of hysterectomy H/O: hysterectomy History of cholecystectomy Family History Mother No problems noted. Father No problems noted. Father No problems noted. Mother Stroke Brother No problems noted. Sister No problems noted. Sister No problems noted. Sister No problems noted. Son No problems noted. Son No problems noted. Social History Housing: House Alcohol intake: never Patient Tobacco Use Status: Former Tobacco user (quit over 50 years ago ) e-Cigarette/Vaping Use: Never Used Second Hand Smoke Exposure: No service: No Current occupational status: retired Cognitive needs: No Hearing needs: No Vision needs: Yes Review of Systems Const Denies chills, Denies daytime sleepiness, Reports difficulty sleeping, Denies fatigue, Denies fever(s), Denies frequent falls, Denies headache(s), Denies increased appetite, Denies poor appetite, Denies snoring, Denies weakness, Denies weight gain and Denies weight loss Eyes Reports as per HPI ENT Reports Normal hearing present, Reports vertigo, Reports dizziness, Denies headache(s) and Denies neck pain Card Denies chest pain at rest, Denies chest pain with activity, Denies syncope, Denies leg edema, Denies palpitations, Denies dyspnea and Denies dyspnea on exertion Resp Denies cough, Denies dyspnea, Denies dyspnea on exertion and Denies snoring GI Denies abdominal pain, Denies constipation, Denies heartburn, Denies diarrhea, Denies nausea and Denies vomiting Denies urinary frequency, Denies urinary incontinence and Denies urinary urgency Musc Denies abnormal gait, Reports back pain, Reports myalgias, Denies arthralgias, Denies neck pain, Denies numbness, Denies stiffness and Denies tingling Neuro Reports Normal hearing present, Denies Abnormal speech present, Denies abnormal gait, Reports vertigo, Reports dizziness, Denies syncope, Denies frequent falls, Denies headache(s), Denies lack of coordination, Denies memory loss, Denies numbness, Denies Other visual disturbances, Denies restless legs, Denies seizure-like activity, Denies tingling, Denies paresthesias, Denies tremor(s) and Denies weakness Psych Reports anxiety, Denies depression, Denies memory loss, Denies visual hallucinations and Denies hallucinations Endo Denies fatigue and Denies palpitations Physical Exam Const General: no acute distress, alert and awake Orientation/consciousness: oriented to person, oriented to place and oriented to time Eyes Pupils: Equal, round and reactive pupils present Resp Effort & Inspection: normal respiratory effort Auscultation: clear to auscultation bilaterally Cardio Rate: regular rate Rhythm: regular rhythm Heart sounds: S1 normal heart sound present and S2 normal heart sound present Neuro Other: Extrapyramidal System: No tremor or rigidity. Normal facial expressions. No bradykinesia. No bradyphrenia. Normal arm swing and posture. No propulsion or retropulsion. General: oriented to person, oriented to place, oriented to time, moves all extremities, no focal motor deficits, normal sensation to monofilament and deep tendon reflexes 2+ bilaterally Cranial nerves: Yes CN's II-XII intact bilaterally, Yes Facial sensation intact/muscles of mastication intact, Yes Equal, round and reactive pupils present, Yes Bilaterally intact EOM present, Yes Normal facial strength present, Yes Midline tongue present, Yes Symmetric palate elevation present, Yes Normal hearing present and Yes Ability to bilaterally elevate shoulders present Cognition (Neuro): normal cognition Speech: No Abnormal speech present Gait exam (Neuro): Assistive device used (cane) Motor exam (neuro): 5/5 motor strength present throughout, Pronator motor function not present, no tremor noted, Motor fasciculations not present and Normal motor muscle tone present throughout Sensory Exam: other (Normal light touch, temperature, pinprick, vibration, and joint-position) Plantar Reflex Responses: downgoing: bilateral Coordination: ftzmgt-wu-jokz test normal, tsbc-mn-ihly test normal, No tandem gait normal (truncal ataxia on tandem walking), Romberg test negative, rapid alternating movements of the distal upper extremity normal and rapid alternating movements of the distal lower extremity normal Extrem General: No edema Psych Mental Status: mental status grossly normal Affect: normal affect Attitude: cooperative Assessment & Plan Assessment & Plan (1) Benign positional vertigo: Code(s): H81.10 - Benign paroxysmal vertigo, unspecified ear Category: Medical Qualifiers: Laterality: unspecified laterality Qualified Code(s): H81.10 - Benign paroxysmal vertigo, unspecified ear Plan: She was here with her vbimkwok-ph-ags (Tran). Recommend taking meclizine 12.5mg 1 tablet at bedtime x1 week and 1 tablet as needed, if symptoms improve, may continue, otherwise may take 1 tablet twice a day as needed. Continue clonazepam 0.5mg 1 tablet at bedtime. (2) Embolic stroke involving vertebral artery: Code(s): I63.119 - Cerebral infarction due to embolism of unspecified vertebral artery Category: Medical Qualifiers: Laterality of affected vessel: unspecified Qualified Code(s): I63.119 - Cerebral infarction due to embolism of unspecified vertebral artery Plan: Continue low dose aspirin. Plan . Medications: New clonazepam (Klonopin) 0.5 mg PO BEDTIME 30 tabs 5RF Coding Level of Care Code Est Pt Level 4 (67311) Diagnoses Benign paroxysmal positional vertigo, unspecified laterality H81.10 Laterality: unspecified laterality Cerebrovascular accident (CVA) due to embolism of vertebral artery, unspecified blood vessel laterality I63.119 Laterality of affected vessel: unspecified
--- OUTSIDE RECORDS SUMMARY | 2025-05-19 13:46 | XMS_ITS | Patient Health Record ---
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 Name Role Phone Thelma (RETIRED) Jax MCGRATH Primary Care Provide r Unavailable Fortino Cooney Unavailable [phone] Reason For Referral No Information Medications Medication SIG (Take, Route, Fr equency, Duration) Notes Start Date End Date Status Synthroid 88mg Activ e Zoloft 40mg Active Vitamin C Active Vitamin D Active Omeprazole 20mg 08/22/2013 11/19/2024 Ac tive Problems Problem Type SNOMED Code ICD Code Onset Dates Problem Status W/U Status Risk Notes Problem Heartburn (54606742) Heartburn (787.1) Active confirmed Problem History of polyp of colon (situation) (877605204) Personal history of colonic polyps (V12.72) Active confirmed Problem Screening for malignant neoplasm of colon (630936232) Special screening for malignant neoplasms, colon (V76.51) Active confirmed Problem GERD (gastroesophag eal reflux disease) (530.81) Active confirmed Plan Of Treatment Future Test Test Name Order Date UPPER GI ENDOSCOPY 11/18/2013 Insurance Providers Payer Name Payer Address Payer Phone Subscriber Number Group Number Insured Name Patient Relationship to Insured Coverage Start Date Coverage End Date [facility] [address] [address] [place] [address] [id number] THANG RODRIGUEZ Self - patient is the insured Medical (General) History Medical History History ICD Code Colonoscopy 08/2011 neg except for diver ticulosis colon polyps-Tubular adenomas removed in 2001--had a neg colonoscopy in 2005 Depression hypothyroidism uterine cancer GERD--UGI in 2008-small HH and reflux Denies [place],DM,CVA,Lung disease,renal dise ase Surgical History Surgery Date(Month/Year) MAGAN and XRT for uterine cancer > 20 yrs ago cholecystectomy
--- OUTSIDE RECORDS SUMMARY | 2025-05-19 13:46 | XMS_ITS | Patient Health Record ---
Author Organization [facility] willis Wellington Address [address] [place] [address] Care Team Providers Care Practice Management Consultant Name Role Phone Chandler MCGRATH, [facility] Primary Care Provider Harjeet Bruno Unavailable [phone] Allergies No Known Allergies Reason For Referral No Information Medications Medication SIG (Take, Route, Frequency, Duration) Notes Start Date End Date Status clonazePAM Active Atorvastatin Calcium Active Omeprazole Active Aspirin Active Sertraline HCl Activ e Synthroid Active Metoprolol Succinate Active Solifenacin Succinate Active Ciclopirox Olamine 0.77 % 1 application Externally Twice a day to skin of feet including between the toes; Duration: 30 days Active Social History Tobacco Use: Social History [...] Problem Status W/U Status Risk Notes Problem Bilateral atherosclerosis of arteries of lower limbs (disorder) (57236153342783456 ) Atherosclerosis of tanana artery of both lower extremities, with unspecified presence of clinical manifestation (I70.203) Active confirmed Q7(A), Q8(2B), Q9(1B,2 C) Vital Signs Blood pressure diastolic 80 mm Hg 03/31/2025 Height 5 ft 3 in in 03/31/2025 Blood pressure systolic 120 mm Hg 03/31/2025 Weight 125 lbs 03/31/2025 BMI 22.14 kg/m2 03/31/2025 Procedures Procedure Date Ordered Date Performed Result Body Sit e 05198-DEFWVHC NAIL, 6 OR MORE 06/20/2024 N/A 21903-ISZC SKIN LESIONS, 2 TO 4 06/20/2024 N/A 41088-THJLRES NAIL, 6 OR MORE 09/26/2024 N/A 14840-DKZE SKIN LESIONS, 2 TO 4 09/26/2024 N/A 85376-HBJUAAZ NAIL, 6 OR MORE 12/26/2024 N/A 44340-KFZK SKIN LESIONS, 2 TO 4 12/26/2024 N/A 19489-ROOEOAJ NAIL, 6 OR MORE 03/31/2025 N/A 35184-KALQ SKIN LESIONS, 2 TO 4 03/31/2025 N/A Encounters Encounter Location Date Provider Diagnosis [address] [address] 06/20/2024 Harjeet Ambrose Atherosclerosis of tanana artery of both lower extremities, with unspecified presence of clinical manifestation I70.203 ; Tinea unguium B35.1 ; Pain in right toe(s) M79.674 ; Pain in left toe(s) M79.675 ; Pain in right foot M79.671 ; Pain in right ankle and joints of right foot M25.571 ; Bursitis of right foot M77.51 and Hallux valgus (acquired), right foot M20.[address] [address] 09/26/2024 Harjeet Ambrose Atherosclerosis of tanana artery of both lower extremities, with unspecified presence of clinical manifestation I70.203 ; Tinea unguium B35.1 ; Pain in right toe(s) M79.674 ; Pain in left toe(s) M79.675 and Tinea pedis of both feet B35.[address] [address] 12/26/2024 Harjeet Ambrose Atherosclerosis of tanana artery of both lower extremities, with unspecified presence of clinical manifestation I70.203 ; Tinea unguium B35.1 ; Pain in right toe(s) M79.674 ; Pain in left toe(s) M79.675 and Tinea pedis of both feet B35.[address] [facility] [address] 03/31/2025 Harjeet Ambrose Atherosclerosis of tanana artery of both lower extremities, with unspecified presence of clinical manifestation I70.203 ; Tinea unguium B35.1 ; Pain in right toe(s) M79.674 and Pain in left toe(s) M79.[address] [address] 06/13/2024 Harjeet Ambrose [address] [address] 06/20/2024 Harjeet Ambrose Assessments Encounter Date Diagnosis (ICD Code) Assessment Notes Treatment Notes Treatment Clinical Notes Section Notes 06/20/2024 Atherosclerosis of tanana artery of both lower extremities, with unspecified presence of clinical manifestation (ICD-10 - I70.203) 09/26/2024 Tinea unguium (ICD-10 - B35.1) 09/26/2024 Atherosclerosis of tanana artery of both lower extremities, with unspecified presence of clinical manifestation (ICD-10 - I70.203) Q7(A), Q8(2B), Q9(1B,2C) 12/26/2024 Tinea unguium (ICD-10 - B35.1) 12/26/2024 Atherosclerosis of tanana artery of both lower extremities, with unspecified presence of clinical manifestation (ICD-10 - I70.203) Q7(A), Q8(2B), Q9(1B,2C) 03/31/2025 Tinea unguium (ICD-10 - B35.1) 03/31/2025 Atherosclerosis of tanana artery of both lower extremities, with unspecified presence of clinical manifestation (ICD-10 - I70.203) Q7(A), Q8(2B), Q9(1B,2C) 12/26/2024 Pain in right toe(s) (ICD-10 - M79.674) 03/31/2025 Pain in right toe(s) (ICD-10 - M79.674) 09/26/2024 Pain in right toe(s) (ICD-10 - M79.674) 06/20/2024 Tinea unguium (ICD-10 - B35.1) 06/20/2024 Pain in right toe(s) (ICD-10 - M79.674) 09/26/2024 Pain in left toe(s) (ICD-10 - M79.675) 12/26/2024 Pain in left toe(s) (ICD-10 - M79.675) 03/31/2025 Pain in left toe(s) (ICD-10 - M79.675) [...] Treatment Pending Test Test Name Order Date 65815-LYHLCOV NAIL, 6 OR MORE 06/20/2024 95299-USGSDQW NAIL, 6 OR MORE 09/26/2024 38030-OYYYSOK NAIL, 6 OR MORE 12/26/2024 86333-KLVSIAL NAIL, 6 OR MORE 03/31/2025 58074-LAIP SKIN LESIONS, 2 TO 4 03/31/20 25 88410-GIMS SKIN LESIONS, 2 TO 4 12/26/19 25 74827-OLXE SKIN LESIONS, 2 TO 4 09/26/20 24 35587-HTDP SKIN LESIONS, 2 TO 4 06/20/20 24 Next Appt Details Provider Name:Harjeet Shukri Ambrose , 07/07/2025 02:45:00 PM, [address] [place] [address], [place], [address], Insurance Providers Payer Name Payer Address Payer Phone Subscriber Number Group Number Insured Name Patient Relationship to Insured Coverage Start Date Coverage End Date [employer] Medicare [id number] [address] [address] [place] [address] [id number] Carissa Martin Self - patient is the insured Medical (General) History Medical History History ICD Code Cancer Cataracts covid-19 Depression Gall bladder problems Heart disease Stroke thyroid Measles Heart valve conditions/replacement Surgical History Surgery Date(Month/Year)
--- OUTSIDE RECORDS SUMMARY | 2025-05-19 13:46 | XMS_ITS | Patient Health Record ---
Author Organization [employer] [facility] Address [address] [place] [address] Care Team Providers Care Motor Tester Name Role Phone DR JULIENNE GARCIA Primary Care Provider Jo Ann Young Unavailable [phone] Reason For Referral No Information Medications Medication SIG (Take, Route, Fr equency, Duration) Notes Start Date End Date Status Fish Oil 1 ORAL daily; Duration: -3 [facility]- 01/16/2012 Active Levoxyl 88MCG 1 ORAL DAILY; Duration: -3 [facility]- 2 Active Lotrisone cream 45 GM External twice maude ly; Duration: 5 [facility]- 01/22/2013 Active Omeprazole 40MG 1 ORAL daily; Duration: -3 [facility]- 012 Active Vitamin D3 1000 IU 1 ORAL daily; Duration: -3 [facility]- 12/21 Active Sertraline HCl 50 MG 1 tablet Orally Once a day Active Calcium 1 ORAL daily; Duration: -3 [facility]- 01/16/2012 Active Problems Problem Type SNOMED Code ICD Code Onset Dates Problem Status W/U Status Risk Notes Problem 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) Active confirmed Major Problem Hypothyroidism (18961465) Unspecified hypothyroidism (244.9) Active confirmed Major Problem Hyperlipidemia (28030180) Other and unspecified hyperlipidemia (272.4) Active confirmed Major Problem Obesity (578088550) Obesity, unspecified (278.00) Active confirmed Major Problem Depressive disorder (62958586) Depressive disorder, not elsewhere classified (311) Active confirmed Major Problem Menopausal symptom (41336347) Symptomatic menopausal or female climacteric states (627.2) Active confirmed Major Problem Backache (593035972) Unspecified backache (724.5) Active confirmed Major Problem Insomnia (712277385) Insomnia, unspecified (780.52) Active confirmed Major Problem Gynecological examination normal (379416693532866) Routine gynecological examination (V72.31) Active confirmed Problem Screening for malignant neoplasm of colon (890000588) Special screening for malignant neoplasms, colon (V76.51) Active confirmed Major Plan Of Treatment Pending Test Test Name Order Date MAMMOGRAM, SCREENING 02/15/2015 Insurance Providers Payer Name Payer Address Payer Phone Subscriber Number Group Number Insured Name Patient Relationship to Insured Coverage Start Date Coverage End Date [facility] [employer] [address] [address] [place] [address] [id number] THANG RODRIGUEZ Self - patient is the insured Medical (General) History Medical History History ICD Code Depressive disorder, not elsewhere class ified 311 Other and unspecified hyperlipidemia 272 .4 Kaposi's sarcoma of unspecified site 176 .9 Unspecified hypothyroidism 244.9 GERD CYSTORECTOCELE Surgical History Surgery Date(Month/Year) cholecystectomy MAGAN/BSO Hospitalization History Reason Date(Month/Year) SEE SURGICAL HX
== END 2025-05-19 13:30 | disposition home or self-care (01) ==
LOC: HO.HSM 12:54
PROVIDERS: PCP Internal Medicine; Referring Provider Physician Assistant; Visit Provider Registered Nurse
DX: H81.10 Benign paroxysmal vertigo, unspecified ear (principal); Z86.73 Personal history of transient ischemic attack (TIA), and cerebral infarction without residual deficits
CPT/HCPCS: 99214

== ENCOUNTER → 2025-05-19 12:53 | Outpatient (BNVA) | payer MEDICARE, SELFPAY | PROVIDERS: PCP Internal Medicine; Referring Provider Physician Assistant; Visit Provider Registered Nurse | DX: H81.10 Benign paroxysmal vertigo, unspecified ear (principal); Z86.73 Personal history of transient ischemic attack (TIA), and cerebral infarction without residual deficits | CPT/HCPCS: 99212 ==

== ENCOUNTER 2025-07-15 09:31 | Outpatient (REF) | payer MEDICARE, SELFPAY ==
[2025-07-15 09:59] LABS: MANUAL DIFF FLAG NO
--- OUTSIDE RECORDS SUMMARY | 2025-07-15 10:10 | XMS_ITS | Patient Health Record ---
Author Organization [facility] Address [address] [place] [address] Care Team Providers Care Sericulturist Name Role Phone Thelma (RETIRED) Jax MCGRATH Primary Care Provide r Unavailable Fortino Cooney Unavailable [phone] Reason For Referral No Information Medications Medication SIG (Take, Route, Fr equency, Duration) Notes Start Date End Date Status Synthroid 88mg Activ e Zoloft 40mg Active Vitamin C Active Vitamin D Active Omeprazole 20mg 08/22/2013 11/19/2024 Ac tive Problems Problem Type SNOMED Code ICD Code Onset Dates Problem Status W/U Status Risk Notes Problem Heartburn (08968000) Heartburn (787.1) Active confirmed Problem History of polyp of colon (situation) (909328912) Personal history of colonic polyps (V12.72) Active confirmed Problem Screening for malignant neoplasm of colon (217342556) Special screening for malignant neoplasms, colon (V76.51) Active confirmed Problem Gastroesophageal reflux disease (888480221) GERD (gastroesopha geal reflux disease) (530.81) Active confirmed Plan Of Treatment Future Test Test Name Order Date UPPER GI ENDOSCOPY 11/18/2013 Insurance Providers Payer Name Payer Address Payer Phone Subscriber Number Group Number Insured Name Patient Relationship to Insured Coverage Start Date Coverage End Date [facility] [address] [address] [place] [address] [phone] [id number] THANG RODRIGUEZ Self - patient is the insured Medical (General) History Medical History History ICD Code Colonoscopy 08/2011 neg except for diver ticulosis colon polyps-Tubular adenomas removed in 2001--had a neg colonoscopy in 2005 Depression hypothyroidism uterine cancer GERD--UGI in 2009-small HH and reflux Denies [place],DM,CVA,Lung disease,renal dise ase Surgical History Surgery Date(Month/Year) MAGAN and XRT for uterine cancer > 20 yrs ago cholecystectomy
--- OUTSIDE RECORDS SUMMARY | 2025-07-15 10:10 | XMS_ITS | Patient Health Record ---
Author Organization [facility] willis Grandy Address [address] [place] [address] Care Team Providers Care Ed Special Education Teacher Name Role Phone Chandler MCGRATH, [facility] Primary Care Provider Harjeet Bruno Unavailable [phone] Allergies No Known Allergies Reason For Referral No Information Medications Medication SIG (Take, Route, Frequency, Duration) Notes Start Date End Date Status Atorvastatin Calcium Active Metoprolol Succinate Active Solifenacin Succinate Active Sertraline HCl Activ e Synthroid Active Ciclopirox Olamine 0.77 % 1 application Externally Twice a day to skin of feet including between the toes; Duration: 30 days Active Omeprazole Active Aspirin Active clonazePAM Active Immunizations Vaccine Route Administration Date Status Comme nts Influenza Unknown 07/20/2024 Administered Social History Tobacco Use: Social History Observation [...] atherosclerosis of arteries of lower limbs (disorder) ([id number] ) 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, with unspecified presence of clinical manifestation (I70.203) Active confirmed Q7(A), Q8(2B), Q9(1B,2 C) Vital Signs Blood pressure diastolic 80 mm Hg 07/07/2025 Height 5 ft 3 in in 07/07/2025 Blood pressure systolic 122 mm Hg 07/07/2025 Weight 127 lbs 07/07/2025 BMI 22.49 kg/m2 07/07/2025 Procedures Procedure Date Ordered Date Performed Result Body Sit e 19283-TKQVCZH NAIL, 6 OR MORE 09/26/2024 N/A 71491-KJSN SKIN LESIONS, 2 TO 4 09/26/2024 N/A 67269-EJCGPSJ NAIL, 6 OR MORE 12/26/2024 N/A 07860-CLSX SKIN LESIONS, 2 TO 4 12/26/2024 N/A 22709-AZUBXFR NAIL, 6 OR MORE 03/31/2025 N/A 59980-FHOB SKIN LESIONS, 2 TO 4 03/31/2025 N/A 23214-HFIKZIF NAIL, 6 OR MORE 07/07/2025 N/A 96169-WKXL SKIN LESIONS, 2 TO 4 07/07/2025 N/A Encounters Encounter Location Date Provider Diagnosis [address] [address] 09/26/2024 Harjeet Ambrose 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, with unspecified presence of clinical manifestation I70.203 ; Tinea unguium B35.1 ; Pain in right toe(s) M79.674 ; Pain in left toe(s) M79.675 and Tinea pedis of both feet B35.[address] [address] 12/26/2024 Harjeet Ambrose 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, with unspecified presence of clinical manifestation I70.203 ; Tinea unguium B35.1 ; Pain in right toe(s) M79.674 ; Pain in left toe(s) M79.675 and Tinea pedis of both feet B35.[address] [address] 03/31/2025 Harjeet Hallunier 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, with unspecified presence of clinical manifestation I70.203 ; Tinea unguium B35.1 ; Pain in right toe(s) M79.674 and Pain in left toe(s) M79.675 [facility] [address] [place] [address] 07/07/2025 Harjeet Hallunier 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, with unspecified presence of clinical manifestation I70.203 ; Tinea unguium B35.1 ; Pain in right toe(s) M79.674 and Pain in left toe(s) M79.675 Assessments Encounter Date Diagnosis (ICD Code) Assessment Notes Treatment Notes Treatment Clinical Notes Section Notes 09/26/2024 Tinea unguium (ICD-10 - B35.1) 09/26/2024 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, with unspecified presence of clinical manifestation (ICD-10 - I70.203) Q7(A), Q8(2B), Q9(1B,2C) 12/26/2024 Tinea unguium (ICD-10 - B35.1) 12/26/2024 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, with unspecified presence of clinical manifestation (ICD-10 - I70.203) Q7(A), Q8(2B), Q9(1B,2C) 03/31/2025 Tinea unguium (ICD-10 - B35.1) 03/31/2025 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, with unspecified presence of clinical manifestation (ICD-10 - I70.203) Q7(A), Q8(2B), Q9(1B,2C) 07/07/2025 Tinea unguium (ICD-10 - B35.1) 07/07/2025 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, with unspecified presence of clinical manifestation (ICD-10 - I70.203) Q7(A), Q8(2B), Q9(1B,2C) 07/07/2025 Pain in right toe(s) (ICD-10 - M79.674) 12/26/2024 Pain in right toe(s) (ICD-10 - M79.674) 03/31/2025 Pain in right toe(s) (ICD-10 - M79.674) 09/26/2024 Pain in right toe(s) (ICD-10 - M79.674) 09/26/2024 Pain in left toe(s) (ICD-10 - M79.675) 12/26/2024 Pain in left toe(s) (ICD-10 - M79.675) 03/31/2025 Pain in left toe(s) (ICD-10 - M79.675) 07/07/2025 Pain in left toe(s) (ICD-10 - M79.675) 12/26/2024 Tinea pedis of both feet (ICD-10 - B35.3) 09/26/2024 Tinea pedis of both feet (ICD-10 - B35.3) Plan Of Treatment Pending Test Test Name Order Date 56846-VRHSUHE NAIL, 6 OR MORE 06/20/2024 46896-ACUKWAV NAIL, 6 OR MORE 09/26/2024 59509-GZLMKUL NAIL, 6 OR MORE 12/26/2024 31145-DEAWKVP NAIL, 6 OR MORE 03/31/2025 49882-ZNEJNZM NAIL, 6 OR MORE 07/07/2025 62712-IUBG SKIN LESIONS, 2 TO 4 07/07/20 25 32892-RNSC SKIN LESIONS, 2 TO 4 03/31/20 25 01138-QVYS SKIN LESIONS, 2 TO 4 12/26/19 25 41497-HGSY SKIN LESIONS, 2 TO 4 09/26/20 24 83601-VCEK SKIN LESIONS, 2 TO 4 06/20/20 24 Next Appt Details Provider Name:Harjeet Ambrose , 10/20/2025 02:45:00 PM, [address] [facility], [place], [address], Insurance Providers Payer Name Payer Address Payer Phone Subscriber Number Group Number Insured Name Patient Relationship to Insured Coverage Start Date Coverage End Date [employer] Medicare [id number] [address] [address] [place] [address] [phone] [id number] Carissa Martin Self - patient is the insured Medical (General) History Medical History History ICD Code Cancer Cataracts covid-19 Depression Gall bladder problems Heart disease Stroke thyroid Measles Heart valve conditions/replacement Surgical History Surgery Date(Month/Year)
--- OUTSIDE RECORDS SUMMARY | 2025-07-15 10:10 | XMS_ITS | Patient Health Record ---
Author Organization [employer] [facility] Address [address] [place] [address] Care Team Providers Care Assignment Manager Name Role Phone DR JULIENNE GARCIA Primary Care Provider Jo Ann Young Unavailable [phone] Reason For Referral No Information Medications Medication SIG (Take, Route, Fr equency, Duration) Notes Start Date End Date Status Fish Oil 1 ORAL daily; Duration: -3 [facility] [place] 01/16/2012 Active Levoxyl 88MCG 1 ORAL DAILY; Duration: -3 [facility] [place] 2 Active Lotrisone cream 45 GM External twice maude ly; Duration: 5 [facility] [place] 01/22/2013 Active Omeprazole 40MG 1 ORAL daily; Duration: -3 [facility] [place] 012 Active Vitamin D3 1000 IU 1 ORAL daily; Duration: -3 [facility] [place] 12/21 Active Sertraline HCl 50 MG 1 tablet Orally Once a day Active Calcium 1 ORAL daily; Duration: -3 [facility] [place] 01/16/2012 Active Problems Problem Type SNOMED Code ICD Code Onset Dates Problem Status W/U Status Risk Notes Problem 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 Major Problem Hypothyroidism (41055916) Unspecified hypothyroidism (244.9) Active confirmed Major Problem Hyperlipidemia (68044848) Other and unspecified hyperlipidemia (272.4) Active confirmed Major Problem Obesity (090535439) Obesity, unspecified (278.00) Active confirmed Major Problem Depressive disorder (58404938) Depressive disorder, not elsewhere classified (311) Active confirmed Major Problem Menopausal symptom (46147751) Symptomatic menopausal or female climacteric states (627.2) Active confirmed Major Problem Backache (368042589) Unspecified backache (724.5) Active confirmed Major Problem Insomnia (470063199) Insomnia, unspecified (780.52) Active confirmed Major Problem Gynecological examination normal (542753156611971) Routine gynecological examination (V72.31) Active confirmed Problem Screening for malignant neoplasm of colon (421737250) Special screening for malignant neoplasms, colon (V76.51) Active confirmed Major Plan Of Treatment Pending Test Test Name Order Date MAMMOGRAM, SCREENING 02/15/2015 Insurance Providers Payer Name Payer Address Payer Phone Subscriber Number Group Number Insured Name Patient Relationship to Insured Coverage Start Date Coverage End Date [facility] [employer] [address] [address] [place] [address] [id number] THANG RODRIGUEZ Self - patient is the insured Medical (General) History Medical History History ICD Code Depressive disorder, not elsewhere class ified 311 Other and unspecified hyperlipidemia 272 .4 Kaposi's sarcoma of unspecified site 176 .9 Unspecified hypothyroidism 244.9 GERD CYSTORECTOCELE Surgical History Surgery Date(Month/Year) cholecystectomy MAGAN/BSO Hospitalization History Reason Date(Month/Year) SEE SURGICAL HX
[2025-07-15 10:52] LABS: Hematocrit 39.6 % (37.0-47.0); Hemoglobin 12.5 g/dl (12.0-16.0); Imm Gran Abs Auto 0.02 X10*3/uL (0.00-0.03); Imm Gran Pct Auto 0.3 % (0.0-0.4); Lymphocytes Absolute Auto 1.8 X10*3/uL (1.2-4.9); Mean Corpuscular HGB Conc 31.6 g/dl (31.0-35.0); Mean Corpuscular Hemoglobin 30.0 pg (27.0-33.0); Mean Corpuscular Volume 95.0 fL (80.0-98.0); NRBC Abs Auto 0.000 X10*3/uL (0.0-0.012); NRBC Pct Auto 0.0 /100WBC (0.0-0.2); Platelet Count 193 X10*3/uL (160-400); Red Blood Count 4.17 X10*6/uL (4.20-5.50); White Blood Count 7.2 X10*3/uL (4.8-10.8)
[2025-07-15 11:30] LABS: Alanine Aminotransferase 21 U/L (0-31); Albumin Level 3.8 g/dL (3.5-5.0); Alkaline Phosphatase 108 U/L (39-117); Anion Gap 11 (12-20); Aspartate Amino Transferase 33 U/L (5-31); Blood Urea Nitrogen 23 mg/dL (9-16); Calcium 9.1 mg/dL (8.4-10.2); Carbon Dioxide 27 mmol/L (22-29); Chloride 107 mmol/L (96-108); Estimated Glomerular Filt Rate 51; Potassium 4.3 mmol/L (3.3-5.1); Sodium 141 mmol/L (135-145); Total Protein 6.6 g/dL (6.5-8.0)
[2025-07-15 11:40] LABS: Vitamin B12 708 pg/mL (200-900)
[2025-07-15 13:18] LABS: Free T4 (Free Thyroxine) 1.08 ng/dL (0.71-1.85)
[2025-07-20 17:23] LABS: Vitamin D 25-OH, D2 <4 ng/mL; Vitamin D 25-OH, D3 22 ng/mL; Vitamin D 25-OH, Total 22 ng/mL (30-100)
== END 2025-07-15 09:32 | disposition home or self-care (01) ==
LOC: HO.LAB 09:31
PROVIDERS: PCP Internal Medicine; Visit Provider Internal Medicine
DX: I35.0 Nonrheumatic aortic (valve) stenosis (principal); E78.9 Disorder of lipoprotein metabolism, unspecified; E03.9 Hypothyroidism, unspecified; N32.9 Bladder disorder, unspecified; R10.13 Epigastric pain
CPT/HCPCS: 36415; 80053; 82306; 82607; 83721; 84439; 84443; 85025

== ENCOUNTER 2025-07-22 11:56 | Outpatient (AMB) | payer MEDICARE, SELFPAY ==
[2025-07-22 11:54] VITALS: BP 112/62; PULSE 70; O2SAT 95; BMI 22.9
--- NOTE | 2025-07-22 11:54 | A.OFFPC_ITS ---
Vital Signs 07/22/25 11:54 Height 5 ft 1 in Weight 121 lb BMI 22.9 BP 112/62 Blood Pressure Location Lt brachial Position Sitting Pulse 70 Pulse Source Pulse Oximeter Pulse Oximetry (%) 95 Intake Visit Reasons: 3m follow up Allergies No Known Allergies Allergy (Verified 07/22/25 11:57) Medication List - Last Reconciled 07/22/25 by Jae Arteaga MD aspirin (Adult Low Dose Aspirin) 81 mg PO DAILY 90 days atorvastatin 40 mg PO DAILY 90 days clonazepam (Klonopin) 0.5 mg PO BEDTIME clotrimazole-betamethasone 1-0.05 % 1 appl topical ONCE 30 days ketoconazole 2% 1 appl topical DAILY ketorolac 0.5% 0 drps ophthalmic (eye) levothyroxine (Synthroid) 137 mcg PO DAILY meclizine 12.5 mg PO BID metoprolol succinate ER 12.5 mg (1/2 x 25 mg) PO DAILY omeprazole 20 mg PO DAILY 90 days sertraline 100 mg PO DAILY 90 days Tobacco use date assessed: 04/22/25 Fall risk assessment: No Falls in past year Last assessed Fall Risk: 07/22/25 Dental Screening Dental Screen Date: 04/22/25 HPI 3m follow up HPI Details History The patient is an 85-year-old female presenting for [facility] care Aortic valve stenosis: - Diagnosed previously. - Moderate severity, causing a heart mur mur and contributing to the patient's tiredness. - Associated with sinus bradycardia and left bundle branch block. - Condition prevents the patient from pe rforming desired activities, leading to frustration. - Cardiology follow-up scheduled for Aug. Hypothyroidism: - Patient is on levothyroxine, with dosi ng adjustments from 150 to 137 mcg. - TSH level from recent labs is 0.25, pr ompting a further reduction to 120 mcg. - Patient reports no direct symptoms julian ked to hypothyroidism. Chronic anxiety: - Previously diagnosed and managed with medications. - Continued difficulty in performing tas ks due to physical limitations noted, contributing to anxiety levels. Chronic vertigo: - Managed with meclizine. - Chronic nature acknowledged, with pers istent symptoms impacting daily life. Lipid disorder: - Managed with atorvastatin, no specific complaints from the patient regarding recent lipid changes. Chronic kidney disease (CKD): - Decreased GFR, down to 51 from a previ ous value of 60 in December. Gastroesophageal reflux disease (GERD): - Managed with omeprazole 20 mg, no new symptoms or exacerbations reported. Depression: - Chronic condition, managed as part of psychological care. History of stroke: - stable Medical History: - Aortic valve stenosis with resulting h eart murmur. - Sinus bradycardia and left bundle bran ch block. - Hypothyroidism. - Chronic anxiety and depression. - Chronic vertigo. - Lipid disorder. - Chronic kidney disease. - Gastroesophageal reflux disease (GERD) . - Bladder disorder. - History of stroke. Medications: - Azepine (unspecified dosing or indicat ion). - Atorvastatin (dosing unspecified). - Clonazepam (dosing unspecified). - Levothyroxine 137 mcg for hypothyroidi sm. - Meclizine for chronic vertigo. - Metoprolol 12.5 mg (incorrectly noted as midoprolol ). - Omeprazole 20 mg for GERD. - Sertaline (noted in conversation as c itrine ) 100 mg for chronic anxiety. Social History: - The patient frequently engages in [employer] activities, indicating some level of functional ability despite cardiac issues. Problem List - Aortic valve stenosis. - Hypothyroidism. - Chronic anxiety. - Chronic vertigo. - Lipid disorder. - Chronic kidney disease. - Gastroesophageal reflux disease (GERD) . - Depression. - Bladder disorder. - History of stroke. - injure right index finger yesterday se wing with a sewing machine needle Diagnostic results - Labs: - CBC: Normal hemoglobin and whi te count. - Metabolic profile: Normal electrolytes and creatinine. - GFR: Reduced to 51. - Liver enzymes: Stable. - Vitamin B12 level: 708. - Vitamin D level: 22. - TSH level: 0.25. [facility] - Scheduled follow-up with environmental services worker in August. - Neurology appointment also in August. Patient Instructions - Follow environmental services worker's follow-up on Aug. - Adjust levothyroxine dosage as discuss ed. - Monitor thyroid function with a blood test - Prepare for medication refill and furt her blood tests in three months. - Continue current medications unless ot herwise instructed. - keep an eye on injured right index fin harlan for any signs of infection Review of Systems General: No fever no chills neurological: No headaches ear nose throat: No sore throat no hearing difficulty no ear pain cardiovascular: No syncope, no chest pain gastrointestinal: No nausea vomiting or diarrhea Physical Exam general: No acute distress, but patient reports fatigue and tires easily. HEENT: No acute findings neck: Supple respiratory system: Able to talk in full sentences, no audible wheeze, no stridor cardiovascular: S1-S2 RRR, heart murmur noted due to aortic valve stenosis gastrointestinal: No pain extremities: Right hand index finger injury noted, no significant damage, Band- Aid changed, wound looks without any signs of infection [employer]: Alert, awake, oriented x3, motor intact, uses cane for ambulation and balance skin: Normal turgor [facility] Medical History GERD (gastroesophageal reflux disease) Hypothyroidism PVCs (premature ventricular contractions) Left bundle branch block Closed fracture of metatarsal bone of right foot Right foot pain Heart murmur Bladder disorder Lipid disorder Dyspepsia Anxiety, generalized Depression, major, severe recurrence Other specified hypothyroidism Ischemic stroke History of stroke Surgical History Status post transcatheter aortic valve replacement (TAVR) using bioprosthesis Right-sided lacunar infarction Hx of cholecystectomy History of hysterectomy H/O: hysterectomy History of cholecystectomy Family History Mother No problems noted. Father No problems noted. Father No problems noted. Mother Stroke Brother No problems noted. Sister No problems noted. Sister No problems noted. Sister No problems noted. Son No problems noted. Son No problems noted. Social History Housing: House Alcohol intake: never Patient Tobacco Use Status: Former Tobacco user (quit over 50 years ago ) e-Cigarette/Vaping Use: Never Used Second Hand Smoke Exposure: No service: No Current occupational status: retired Cognitive needs: No Hearing needs: No Vision needs: Yes Questionnaire Thrive Questionnaire Date Thrive assessed: 04/22/25 ADELFO-7 AMB Questionnaire ADELFO-7 Date ADELFO - 7 assessed: 04/22/25 Source: Developed by Drs. Fortino Franklin, Elda Cotto, Gurdeep Jones and colleagues, with an educational david from [employer]. Physical exam (Primary Care) Vital Signs: Last Vital Signs Pulse 70 07/22/25 11:54 BP 112/62 07/22/25 11:54 Pulse Ox 95 07/22/25 11:54 BMI result Body Mass Index 22.9 Tobacco/Smoking Status: Tobacco use Status Tobacco use date assessed 04/22/25 07/22/25 11:55 Patient Tobacco Use Status Former Tobacco user 07/22/25 11:55 e-Cigarette/Vaping Use Never Used 07/22/25 11:55 Thrive Assessment: Date of Thrive Assessment Date Thrive assessed 04/22/25 07/22/25 11:55 Coding Level of Care Code Est Pt Level 5 (59985) Diagnoses Injury of right index finger, initial encounter S69.91XA Encounter type: initial encounter Severe episode of recurrent major depressive disorder, without psychotic features F33.2 Psychotic features: without psychotic features Decreased GFR R94.4 Anxiety, generalized F41.1 Aortic valve stenosis, moderate I35.0 Lipid disorder E78.9 Other specified hypothyroidism E03.8 Benign paroxysmal positional vertigo, unspecified laterality H81.10 Laterality: unspecified laterality History of stroke Z86.73 Use of cane as ambulatory aid Z99.89 Time Spent (min) 40 Comment Complex patient, reviewing chart/labs/gvmg-li-mprv/coordination of care Assessment & Plan Assessment & Plan (1) Injury of right index finger: Code(s): S69.91XA - Unspecified injury of right wrist, hand and finger(s), initial encounter Category: Medical Qualifiers: Encounter type: initial encounter Qualified Code(s): S69.91XA - Unspecified injury of right wrist, hand and finger(s), initial encounter (2) Depression, major, severe recurrence: Code(s): F33.2 - Major depressive disorder, recurrent severe without psychotic features Category: Medical Qualifiers: Psychotic features: without psychotic features Qualified Code(s): F33.2 - Major depressive disorder, recurrent severe without psychotic features (3) Decreased GFR: Code(s): R94.4 - Abnormal results of kidney function studies Category: Medical (4) Anxiety, generalized: Code(s): F41.1 - Generalized anxiety disorder Category: Medical (5) Aortic valve stenosis, moderate: Code(s): I35.0 - Nonrheumatic aortic (valve) stenosis Category: Medical (6) Lipid disorder: Code(s): E78.9 - Disorder of lipoprotein metabolism, unspecified Category: Medical (7) Other specified hypothyroidism: Code(s): E03.8 - Other specified hypothyroidism Category: Medical (8) Benign positional vertigo: Code(s): H81.10 - Benign paroxysmal vertigo, unspecified ear Category: Medical Qualifiers: Laterality: unspecified laterality Qualified Code(s): H81.10 - Benign paroxysmal vertigo, unspecified ear (9) History of stroke: Code(s): Z86.73 - Personal history of transient ischemic attack (TIA), and cerebral infarction without residual deficits Category: Medical (10) Use of cane as ambulatory aid: Code(s): Z99.89 - Dependence on other enabling machines and devices Category: Medical Plan The patient is an 85-year-old female presenting for [facility] Aortic valve stenosis: - Diagnosed previously. - Moderate severity, causing a heart murmur and contributing to the patient's tiredness. - Associated with sinus bradycardia and left bundle branch block. - Condition prevents the patient from performing desired activities, leading to frustration. - Cardiology follow-up scheduled for September 03. Hypothyroidism: - Patient is on levothyroxine, with dosing adjustments from 150 to 137 mcg. - TSH level from recent labs is 0.25, prompting a further reduction to 120 mcg. - Patient reports no direct symptoms linked to hypothyroidism. Chronic anxiety: - Previously diagnosed and managed with medications. - Continued difficulty in performing tasks due to physical limitations noted, contributing to anxiety levels. Chronic vertigo: - Managed with meclizine. - Chronic nature acknowledged, with persistent symptoms impacting daily life. Lipid disorder: - Managed with atorvastatin, no specific complaints from the patient regarding recent lipid changes. Chronic kidney disease (CKD): - Decreased GFR, down to 51 from a previous value of 60 in December. Gastroesophageal reflux disease (GERD): - Managed with omeprazole 20 mg, no new symptoms or exacerbations reported. Depression: - Chronic condition, managed as part of psychological care. History of stroke: - stable Medical History: - Aortic valve stenosis with resulting heart murmur. - Sinus bradycardia and left bundle branch block. - Hypothyroidism. - Chronic anxiety and depression. - Chronic vertigo. - Lipid disorder. - Chronic kidney disease. - Gastroesophageal reflux disease (GERD). - Bladder disorder. - History of stroke. Medications: - Azepine (unspecified dosing or indication). - Atorvastatin (dosing unspecified). - Clonazepam (dosing unspecified). - Levothyroxine 137 mcg for hypothyroidism. - Meclizine for chronic vertigo. - Metoprolol 12.5 mg (incorrectly noted as midoprolol ). - Omeprazole 20 mg for GERD. - Sertaline (noted in conversation as citrine ) 100 mg for chronic anxiety. Social History: - The patient frequently engages in sewing activities, indicating some level of functional ability despite cardiac issues. Problem List - Aortic valve stenosis. - Hypothyroidism. - Chronic anxiety. - Chronic vertigo. - Lipid disorder. - Chronic kidney disease. - Gastroesophageal reflux disease (GERD). - Depression. - Bladder disorder. - History of stroke. - injure right index finger yesterday sewing with a sewing machine needle Diagnostic results - Labs: - CBC: Normal hemoglobin and white count. - Metabolic profile: Normal electrolytes and creatinine. - GFR: Reduced to 51. - Liver enzymes: Stable. - Vitamin B12 level: 708. - Vitamin D level: 22. - TSH level: 0.25. [facility] - Scheduled follow-up with environmental services worker in August. - Neurology appointment also in August. Patient Instructions - Follow environmental services worker's follow-up on September 03. - Adjust levothyroxine dosage as discussed. - Monitor thyroid function with a blood test - Prepare for medication refill and further blood tests in three months. - Continue current medications unless otherwise instructed. - keep an eye on injured right index finger for any signs of infection Orders: Orders TSH reflex Free T4 3 Months E03.8 - Other specified hypothyroidism, E78.9 - Disorder of lipoprotein metabolism, unspecified, F33.2 - Major depressive disorder, recurrent severe without psychotic features, F41.1 - Generalized anxiety disorder, I35.0 - Nonrheumatic aortic (valve) stenosis, N32.9 - Bladder disorder, unspecified, R94.4 - Abnormal results of kidney function studies Comprehensive Met. Panel 3 Months E03.8 - Other specified hypothyroidism, E78.9 - Disorder of lipoprotein metabolism, unspecified, F33.2 - Major depressive disorder, recurrent severe without psychotic features, F41.1 - Generalized anxiety disorder, I35.0 - Nonrheumatic aortic (valve) stenosis, N32.9 - Bladder disorder, unspecified, R94.4 - Abnormal results of kidney function studies Medications: Refilled levothyroxine (Synthroid) 137 mcg PO DAILY 90 tabs 0RF omeprazole 20 mg PO DAILY 90 caps 2RF 90 days atorvastatin 40 mg PO DAILY 90 tabs 0RF 90 days
--- OUTSIDE RECORDS SUMMARY | 2025-07-22 14:35 | XMS_ITS | Patient Health Record ---
Author Organization [facility] Address [address] [place] [address] Care Team Providers Care Amphibious Operations Officer Name Role Phone Thelma (RETIRED) Jax MCGRATH Primary Care Provide r Unavailable Fortino Cooney Unavailable [phone] Reason For Referral No Information Medications Medication SIG (Take, Route, Fr equency, Duration) Notes Start Date End Date Status Synthroid 88mg Activ e Zoloft 40mg Active Vitamin C Active Vitamin D Active Omeprazole 20mg 08/22/2013 11/19/2024 Ac tive Problems Problem Type SNOMED Code ICD Code Onset Dates Problem Status W/U Status Risk Notes Problem Heartburn (18690353) Heartburn (787.1) Active confirmed Problem History of polyp of colon (situation) (210181797) Personal history of colonic polyps (V12.72) Active confirmed Problem Screening for malignant neoplasm of colon (266132875) Special screening for malignant neoplasms, colon (V76.51) Active confirmed Problem Gastroesophageal reflux disease (760801469) GERD (gastroesopha geal reflux disease) (530.81) Active confirmed Plan Of Treatment Future Test Test Name Order Date UPPER GI ENDOSCOPY 11/18/2013 Insurance Providers Payer Name Payer Address Payer Phone Subscriber Number Group Number Insured Name Patient Relationship to Insured Coverage Start Date Coverage End Date [facility] [address] [address] [place] [address] [id number] THANG RODRIGUEZ Self - patient is the insured Medical (General) History Medical History History ICD Code Colonoscopy 08/2011 neg except for diver ticulosis colon polyps-Tubular adenomas removed in 2001--had a neg colonoscopy in 2005 Depression hypothyroidism uterine cancer GERD--UGI in 2009-small HH and reflux Denies [place],DM,CVA,Lung disease,renal dise ase Surgical History Surgery Date(Month/Year) MAGAN and XRT for uterine cancer > 20 yrs ago cholecystectomy
== END 2025-07-22 12:18 | disposition home or self-care (01) ==
LOC: HO.HMCC 11:56
PROVIDERS: PCP Internal Medicine; Visit Provider Internal Medicine
DX: S69.91XA Unspecified injury of right wrist, hand and finger(s), initial encounter (principal); F33.2 Major depressive disorder, recurrent severe without psychotic features; R94.4 Abnormal results of kidney function studies; F41.1 Generalized anxiety disorder; I35.0 Nonrheumatic aortic (valve) stenosis; E78.9 Disorder of lipoprotein metabolism, unspecified; E03.8 Other specified hypothyroidism; Z86.73 Personal history of transient ischemic attack (TIA), and cerebral infarction without residual deficits; Z99.89 Dependence on other enabling machines and devices

== ENCOUNTER → 2025-07-22 11:56 | Outpatient (BNVA) | payer MEDICARE, SELFPAY | PROVIDERS: PCP Internal Medicine; Visit Provider Internal Medicine | DX: S69.91XD Unspecified injury of right wrist, hand and finger(s), subsequent encounter (principal); F33.2 Major depressive disorder, recurrent severe without psychotic features; R94.4 Abnormal results of kidney function studies; F41.1 Generalized anxiety disorder; I35.0 Nonrheumatic aortic (valve) stenosis; E78.9 Disorder of lipoprotein metabolism, unspecified; E03.8 Other specified hypothyroidism; H81.10 Benign paroxysmal vertigo, unspecified ear; Z86.73 Personal history of transient ischemic attack (TIA), and cerebral infarction without residual deficits; Z99.89 Dependence on other enabling machines and devices | CPT/HCPCS: 99212 ==

== ENCOUNTER 2025-09-03 13:23 | Outpatient (AMB) | payer MEDICARE, SELFPAY ==
--- NOTE | 2025-09-03 13:28 | A.OFFVIS_ITS ---
Intake Visit Reasons: 3m/ dizziness Allergies No Known Allergies Allergy (Verified 09/03/25 13:32) Medication List - Last Reconciled 09/03/25 by Geneva Del Real CNP aspirin (Adult Low Dose Aspirin) 81 mg PO DAILY 90 days atorvastatin 40 mg PO DAILY 90 days clonazepam (Klonopin) 0.5 mg PO BEDTIME clotrimazole-betamethasone 1-0.05 % 1 appl topical ONCE 30 days ketoconazole 2% 1 appl topical DAILY ketorolac 0.5% 0 drps ophthalmic (eye) levothyroxine (Synthroid) 137 mcg PO DAILY meclizine 12.5 mg PO BID metoprolol succinate ER 12.5 mg (1/2 x 25 mg) PO DAILY omeprazole 20 mg PO DAILY 90 days sertraline 100 mg PO DAILY 90 days HPI Comments Details: Dizziness has been pretty good with clonazepam and meclizine at bedtime. She has not needed meclizine during the day. Balance was unsteady and she had one fall last week after turning too quickly, no injury. She was using cane when outside of home. Sleep was up and down. Vision was about the same. No new stroke-like symptoms. Previously, she was waking with slight, tolerable dizziness few times a week lasting up to half a day and about 1x/week had severe dizziness. She would take meclizine 12.5mg as needed which helped some. Previously, between 08/2024-02/2025, she was having more dizzy spells that could happen at any time. It felt like everything around her was moving. She was walking with cane when outside of home. She was still under some stress. Her was dealing with some health issues. 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 Left peripheral vision is not as good. Follows with ophthalmology. No feeling of crawling in the head for some time now. Went to therapy for balance, but it did not help. Had aortic valve replacement on 08/21/2023, feeling better with more energy. Had routine eye exam earlier in 2023, supervising chef was not happy with her peripheral vision and ordered brain MRI, completed in 02/2024. She had a minor stroke like episode in 01/2018 with garbled speech that cleared in about 90 min. She was hospitalized at [facility] and had an MRI and a carotid Doppler. She has been on atorvastatin and daily aspirin. In 02/2018, she started dizzy spells, which are not vertiginous, characterized by a feeling of being off balance when she walks and sometimes even sitting down, she feels she is a little woozy but does not fall and does not feel like she is going to pass out. These episodes last from a half hour to 2 hours. No triggers have been identified. There are no other associated symptoms with that such as double vision, palpitation, chest pain, diaphoresis, or numbness. [facility] Medical History GERD (gastroesophageal reflux disease) Hypothyroidism PVCs (premature ventricular contractions) Left bundle branch block Closed fracture of metatarsal bone of right foot Right foot pain Heart murmur Bladder disorder Lipid disorder Dyspepsia Anxiety, generalized Depression, major, severe recurrence Other specified hypothyroidism Ischemic stroke History of stroke Surgical History Status post transcatheter aortic valve replacement (TAVR) using bioprosthesis Right-sided lacunar infarction Hx of cholecystectomy History of hysterectomy H/O: hysterectomy History of cholecystectomy Family History Mother No problems noted. Father No problems noted. Father No problems noted. Mother Stroke Brother No problems noted. Sister No problems noted. Sister No problems noted. Sister No problems noted. Son No problems noted. Son No problems noted. Social History Housing: House Alcohol intake: never Patient Tobacco Use Status: Former Tobacco user (quit over 50 years ago ) e-Cigarette/Vaping Use: Never Used Second Hand Smoke Exposure: No service: No Current occupational status: retired Cognitive needs: No Hearing needs: No Vision needs: Yes Review of Systems Const Denies chills, Denies daytime sleepiness, Reports difficulty sleeping, Reports fatigue, Denies fever(s), Denies frequent falls, Denies headache(s), Denies increased appetite, Denies poor appetite, Denies snoring, Denies weakness, Denies weight gain and Denies weight loss Eyes Denies loss of vision ENT Denies vertigo, Reports dizziness, Denies headache(s) and Reports neck pain Card Denies chest pain at rest, Denies chest pain with activity, Denies syncope, Denies leg edema, Denies palpitations, Denies dyspnea and Denies dyspnea on exertion Resp Denies cough, Denies dyspnea, Denies dyspnea on exertion and Denies snoring GI Denies abdominal pain, Denies constipation, Denies heartburn, Denies diarrhea and Denies nausea Denies urinary frequency, Denies urinary incontinence and Denies urinary urgency Musc Reports abnormal gait (balance difficulty), Reports back pain, Denies myalgias, Denies arthralgias, Reports neck pain, Denies numbness and Denies tingling Neuro Reports abnormal gait (balance difficulty), Denies vertigo, Reports dizziness, Denies syncope, Denies frequent falls, Denies headache(s), Denies lack of coordination, Denies loss of vision, Denies memory loss, Denies numbness, Denies Other visual disturbances, Denies restless legs, Denies seizure-like activity, Denies tingling, Denies paresthesias, Denies tremor(s) and Denies weakness Psych Reports anxiety, Reports depression, Denies auditory hallucinations, Denies memory loss and Denies visual hallucinations Endo Reports fatigue and Denies palpitations Physical Exam Const Other: General Appearance:? normal, in no acute distress. Heart:? S1, S2 normal, no murmurs. Lungs:? clear anteriorly and posteriorly. Musculoskeletal:? normal. Extremities:? no edema. Psych:? alert, oriented, cognitive function intact, cooperative with exam. Neuro Other: Abnormal Neurological Findings:?Truncal ataxia on tandem walking. Walking with cane. Mental Status: alert and oriented X 3. Normal attention, orientation, memory, and affect. Cranial Nerves: Pupils are equal, round, and reactive to light. External ocular muscles are intact. Visual torres are full, no ptosis. Face is symmetrical, no facial weakness or droop. Facial sensations are normal. Tongue protrudes in midline. Palate elevates symmetrically. Shoulder shrugging is normal Motor Examination: Normal muscle tone, bulk and strength. No atrophy or fasc iculations. No drift of the extended upper extremities. DTR 2+. Plantars are flexor. Sensory Exam: Normal light touch, temperature, pinprick, vibration, and joint- position sensations. Rhomberg sign is absent. Coordination: No ataxia. No titubation. Gait Exam: With cane. Cerebellar Signs: [id number]-[id number]-[id number] is okay. Extrapyramidal System: No tremor, rigidity with normal facial expressions. No bradykinesia. No bradyphrenia. Normal arm swing and posture. No propulsion or retropulsion. Speech: Normal. Results Reviewed Results Reviewed: Holter 03/2024: Baseline NSR, average HR of 57 bpm MRI brain WO at [facility] in Feb 2024: Chronic left small occpital infarct, another similar smaller R post parietal infarct, and mod atrophy 09/20/18 CT brain shows old lacunar infarct in left caudate 09/25/18 Carotid doppler normal Review brain MRI from [facility]. 09/20/18 CT brain shows old lacunar infarct in left caudate 09/25/18 Carotid doppler normal Assessment & Plan Assessment & Plan (1) Benign positional vertigo: Code(s): H81.10 - Benign paroxysmal vertigo, unspecified ear Category: Medical Qualifiers: Laterality: unspecified laterality Qualified Code(s): H81.10 - Benign paroxysmal vertigo, unspecified ear Plan: Continue meclizine 12.5mg 1 tablet at bedtime and 1 tablet daily as needed. Continue clonazepam 0.5mg 1 tablet at bedtime #30 for 30 days. (2) Embolic stroke involving vertebral artery: Code(s): I63.119 - Cerebral infarction due to embolism of unspecified vertebral artery Category: Medical Qualifiers: Laterality of affected vessel: unspecified Qualified Code(s): I63.119 - Cerebral infarction due to embolism of unspecified vertebral artery Plan: Continue low dose aspirin. Plan . Medications: Changed From meclizine 12.5 mg PO BID To meclizine 12.5 mg PO BID 60 tabs 5RF 30 days Coding Level of Care Code Est Pt Level 4 (15217) Diagnoses Benign paroxysmal positional vertigo, unspecified laterality H81.10 Laterality: unspecified laterality Cerebrovascular accident (CVA) due to embolism of vertebral artery, unspecified blood vessel laterality I63.119 Laterality of affected vessel: unspecified
--- OUTSIDE RECORDS SUMMARY | 2025-09-03 16:49 | XMS_ITS | Patient Health Record ---
Author Organization [employer] [facility] Address [address] [place] [address] Care Team Providers Care Director Of Public Safety Name Role Phone DR JULIENNE GARCIA Primary Care Provider Jo Ann Young Unavailable [phone] Reason For Referral No Information Medications Medication SIG (Take, Route, Fr equency, Duration) Notes Start Date End Date Status Fish Oil 1 ORAL daily; Duration: -3 [facility]- 01/16/2012 Active Levoxyl 88MCG 1 ORAL DAILY; Duration: -3 [facility]- 2 Active Lotrisone cream 45 GM External twice maude ly; Duration: 5 [facility]- 01/22/2013 Active Omeprazole 40MG 1 ORAL daily; Duration: -3 [facility]- 012 Active Vitamin D3 1000 IU 1 ORAL daily; Duration: -3 [facility]- 12/21 Active Sertraline HCl 50 MG 1 tablet Orally Once a day Active Calcium 1 ORAL daily; Duration: -3 [facility]- 01/16/2012 Active Problems Problem Type SNOMED Code ICD Code Onset Dates Problem Status W/U Status Risk Notes Problem 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) Active confirmed Major Problem Hypothyroidism (54181905) Unspecified hypothyroidism (244.9) Active confirmed Major Problem Hyperlipidemia (75904447) Other and unspecified hyperlipidemia (272.4) Active confirmed Major Problem Obesity (401663176) Obesity, unspecified (278.00) Active confirmed Major Problem Depressive disorder (83077020) Depressive disorder, not elsewhere classified (311) Active confirmed Major Problem Menopausal symptom (51239426) Symptomatic menopausal or female climacteric states (627.2) Active confirmed Major Problem Backache (223055778) Unspecified backache (724.5) Active confirmed Major Problem Insomnia (786296745) Insomnia, unspecified (780.52) Active confirmed Major Problem Gynecological examination normal (023826363085202) Routine gynecological examination (V72.31) Active confirmed Problem Screening for malignant neoplasm of colon (132667938) Special screening for malignant neoplasms, colon (V76.51) Active confirmed Major Plan Of Treatment Pending Test Test Name Order Date MAMMOGRAM, SCREENING 02/15/2015 Insurance Providers Payer Name Payer Address Payer Phone Subscriber Number Group Number Insured Name Patient Relationship to Insured Coverage Start Date Coverage End Date [facility] [employer] [address] [address] [place] [address] [id number] THANG RODRIGUEZ Self - patient is the insured Medical (General) History Medical History History ICD Code Depressive disorder, not elsewhere class ified 311 Other and unspecified hyperlipidemia 272 .4 Kaposi's sarcoma of unspecified site 176 .9 Unspecified hypothyroidism 244.9 GERD CYSTORECTOCELE Surgical History Surgery Date(Month/Year) cholecystectomy MAGAN/BSO Hospitalization History Reason Date(Month/Year) SEE SURGICAL HX
--- OUTSIDE RECORDS SUMMARY | 2025-09-03 16:49 | XMS_ITS | Patient Health Record ---
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, with unspecified presence of clinical manifestation (I70.203) Active confirmed Q7(A), Q8(2B), Q9(1B,2 C) Vital Signs Blood pressure diastolic 80 mm Hg 07/07/2025 Height 5 ft 3 in in 07/07/2025 Blood pressure systolic 122 mm Hg 07/07/2025 Weight 127 lbs 07/07/2025 BMI 22.49 kg/m2 07/07/2025 Procedures Procedure Date Ordered Date Performed Result Body Sit e 56365-NPPGDMS NAIL, 6 OR MORE 09/26/2024 N/A 33789-ZSYD SKIN LESIONS, 2 TO 4 09/26/2024 N/A 09208-PKANVRC NAIL, 6 OR MORE 12/26/2024 N/A 08190-RNJG SKIN LESIONS, 2 TO 4 12/26/2024 N/A 90477-AOIUPJI NAIL, 6 OR MORE 03/31/2025 N/A 09344-UACV SKIN LESIONS, 2 TO 4 03/31/2025 N/A 28368-CVEKCVJ NAIL, 6 OR MORE 07/07/2025 N/A 35933-QGGT SKIN LESIONS, 2 TO 4 07/07/2025 N/A Encounters Encounter Location Date Provider Diagnosis [address] [address] 09/26/2024 Harjeet Amrbose 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, with unspecified presence of clinical manifestation I70.203 ; Tinea unguium B35.1 ; Pain in right toe(s) M79.674 ; Pain in left toe(s) M79.675 and Tinea pedis of both feet B35.[address] [address] 12/26/2024 Harjeet Ambrose 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, with unspecified presence of clinical manifestation I70.203 ; Tinea unguium B35.1 ; Pain in right toe(s) M79.674 ; Pain in left toe(s) M79.675 and Tinea pedis of both feet B35.[address] [address] 03/31/2025 Harjeet Hallunier 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, with unspecified presence of clinical manifestation I70.203 ; Tinea unguium B35.1 ; Pain in right toe(s) M79.674 and Pain in left toe(s) M79.675 [facility] [address] [place] [address] 07/07/2025 Harjeet Hallunier 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, with unspecified presence of clinical manifestation I70.203 ; Tinea unguium B35.1 ; Pain in right toe(s) M79.674 and Pain in left toe(s) M79.675 Assessments Encounter Date Diagnosis (ICD Code) Assessment Notes Treatment Notes Treatment Clinical Notes Section Notes 09/26/2024 Tinea unguium (ICD-10 - B35.1) 09/26/2024 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, with unspecified presence of clinical manifestation (ICD-10 - I70.203) Q7(A), Q8(2B), Q9(1B,2C) 12/26/2024 Tinea unguium (ICD-10 - B35.1) 12/26/2024 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, with unspecified presence of clinical manifestation (ICD-10 - I70.203) Q7(A), Q8(2B), Q9(1B,2C) 03/31/2025 Tinea unguium (ICD-10 - B35.1) 03/31/2025 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, with unspecified presence of clinical manifestation (ICD-10 - I70.203) Q7(A), Q8(2B), Q9(1B,2C) 07/07/2025 Tinea unguium (ICD-10 - B35.1) 07/07/2025 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, with unspecified [...] Treatment Pending Test Test Name Order Date 12090-TKOLZKI NAIL, 6 OR MORE 06/20/2024 26555-UECTEUI NAIL, 6 OR MORE 09/26/2024 18558-QQFNZBD NAIL, 6 OR MORE 12/26/2024 36470-OTDIQJN NAIL, 6 OR MORE 03/31/2025 73239-TYMUSFC NAIL, 6 OR MORE 07/07/2025 74926-HWKV SKIN LESIONS, 2 TO 4 07/07/20 25 51429-UPEA SKIN LESIONS, 2 TO 4 03/31/20 25 10902-PYKF SKIN LESIONS, 2 TO 4 12/26/19 25 60114-FHJM SKIN LESIONS, 2 TO 4 09/26/20 24 77393-KMZD SKIN LESIONS, 2 TO 4 06/20/20 24 Next Appt Details Provider Name:Harjeet Ambrose , 10/20/2025 02:45:00 PM, [address], [place], [address], Insurance Providers Payer Name Payer Address Payer Phone Subscriber Number Group Number Insured Name Patient Relationship to Insured Coverage Start Date Coverage End Date [employer] Medicare Adv-[id number] [address] [address] [place] [address] [id number] Carissa Martin Self - patient is the insured Medical (General) History Medical History History ICD Code Cancer Cataracts covid-19 Depression Gall bladder problems Heart disease Stroke thyroid Measles Heart valve conditions/replacement Surgical History Surgery Date(Month/Year)
--- OUTSIDE RECORDS SUMMARY | 2025-09-03 16:49 | XMS_ITS | Patient Health Record ---
Author Organization [facility] Address [address] [place] [address] Care Team Providers Care Air Tube Releaser Name Role Phone Thelma (RETIRED) Jax MCGRATH Primary Care Provide r Unavailable Fortino Cooney Unavailable [phone] Reason For Referral No Information Medications Medication SIG (Take, Route, Fr equency, Duration) Notes Start Date End Date Status Synthroid 88mg Activ e Zoloft 40mg Active Vitamin C Active Vitamin D Active Omeprazole 20mg 08/22/2013 11/19/2024 Ac tive Problems Problem Type SNOMED Code ICD Code Onset Dates Problem Status W/U Status Risk Notes Problem Heartburn (33288596) Heartburn (787.1) Active confirmed Problem History of polyp of colon (situation) (740520645) Personal history of colonic polyps (V12.72) Active confirmed Problem Screening for malignant neoplasm of colon (939649107) Special screening for malignant neoplasms, colon (V76.51) Active confirmed Problem Gastroesophageal reflux disease (284604701) GERD (gastroesopha geal reflux disease) (530.81) Active confirmed Plan Of Treatment Future Test Test Name Order Date UPPER GI ENDOSCOPY 11/18/2013 Insurance Providers Payer Name Payer Address Payer Phone Subscriber Number Group Number Insured Name Patient Relationship to Insured Coverage Start Date Coverage End Date [facility] [address] [address] [place] [address] [id number] THANG RODRIGUEZ Self - patient is the insured Medical (General) History Medical History History ICD Code Colonoscopy 08/2011 neg except for diver ticulosis colon polyps-Tubular adenomas removed in 2001--had a neg colonoscopy in 2005 Depression hypothyroidism uterine cancer GERD--UGI in 2009-small HH and reflux Denies [place],DM,CVA,Lung disease,renal dise ase Surgical History Surgery Date(Month/Year) MAGAN and XRT for uterine cancer > 20 yrs ago cholecystectomy
== END 2025-09-03 13:47 | disposition home or self-care (01) ==
LOC: HO.HSM 13:24
PROVIDERS: PCP Internal Medicine; Visit Provider Registered Nurse
DX: H81.10 Benign paroxysmal vertigo, unspecified ear (principal); I63.119 Cerebral infarction due to embolism of unspecified vertebral artery
CPT/HCPCS: 99214

== ENCOUNTER → 2025-09-03 13:23 | Outpatient (BNVA) | payer MEDICARE, SELFPAY | PROVIDERS: PCP Internal Medicine; Visit Provider Registered Nurse | DX: H81.10 Benign paroxysmal vertigo, unspecified ear (principal); I63.113 Cerebral infarction due to embolism of bilateral vertebral arteries; Z95.2 Presence of prosthetic heart valve; Z79.82 Long term (current) use of aspirin; Z87.891 Personal history of nicotine dependence | CPT/HCPCS: 99212 ==

== ENCOUNTER 2025-09-22 09:48 | Outpatient (AMB) | payer MEDICARE, SELFPAY ==
--- NOTE | 2025-09-22 09:54 | A.OFFVIS_ITS ---
Vital Signs 09/22/25 09:56 Height 5 ft 1 in Weight 123 lb 7.342 oz BMI 23.3 BP 110/62 Blood Pressure Location Lt brachial Position Sitting Pulse 60 Pulse Source Monitor Intake Visit Reasons: 6 month f/u Sleep Technician Required: No Allergies No Known Allergies Allergy (Verified 09/22/25 10:00) Medication List - Last Reconciled 09/22/25 by Catherine Mccormick NP-C aspirin (Adult Low Dose Aspirin) 81 mg PO DAILY 90 days atorvastatin 40 mg PO DAILY 90 days clonazepam (Klonopin) 0.5 mg PO BEDTIME clotrimazole-betamethasone 1-0.05 % 1 appl topical ONCE 30 days ketoconazole 2% 1 appl topical DAILY ketorolac 0.5% 0 drps ophthalmic (eye) levothyroxine (Synthroid) 137 mcg PO DAILY meclizine 12.5 mg PO BID 30 days metoprolol succinate ER 12.5 mg (1/2 x 25 mg) PO DAILY omeprazole 20 mg PO DAILY 90 days sertraline 100 mg PO DAILY 90 days HPI HPI 6 month f/u: Details: Carissa is an 85-year-old female past medical history of hyperlipidemia, aortic stenosis status post TAVR, left bundle branch block, frequent PVCs who presents for follow-up. Today she reports she has been doing well overall. Her primary concern is fatigue. She denies chest discomfort at rest or with activity. No shortness of breath, PND, orthopnea or edema. No heart palpitations, lightheadedness, presyncope, syncope. She reports doing only light physical activity. She is compliant with her medications. She ambulates slowly with a cane which she uses for balance. [facility] Medical History GERD (gastroesophageal reflux disease) Hypothyroidism PVCs (premature ventricular contractions) Left bundle branch block Closed fracture of metatarsal bone of right foot Right foot pain Heart murmur Bladder disorder Lipid disorder Dyspepsia Anxiety, generalized Depression, major, severe recurrence Other specified hypothyroidism Ischemic stroke History of stroke Surgical History Status post transcatheter aortic valve replacement (TAVR) using bioprosthesis Right-sided lacunar infarction Hx of cholecystectomy History of hysterectomy H/O: hysterectomy History of cholecystectomy Family History Mother No problems noted. Father No problems noted. Father No problems noted. Mother Stroke Brother No problems noted. Sister No problems noted. Sister No problems noted. Sister No problems noted. Son No problems noted. Son No problems noted. Social History Housing: House Alcohol intake: never Patient Tobacco Use Status: Former Tobacco user (quit over 50 years ago ) e-Cigarette/Vaping Use: Never Used Second Hand Smoke Exposure: No service: No Current occupational status: retired Cognitive needs: No Hearing needs: No Vision needs: Yes Review of Systems Const All systems reviewed & are unremarkable except as noted in HPI and below Reports fatigue ENT Denies dizziness Card Denies chest pain, Denies chest pain at rest, Denies chest pain with activity, Denies rapid heart rate, Denies pedal edema, Denies edema, Denies leg edema, Denies lightheadedness, Denies palpitations, Denies dyspnea, Denies dyspnea on exertion and Denies orthopnea Resp Denies cough, Denies dyspnea and Denies dyspnea on exertion GI Denies hematochezia and Denies change in stool character Musc Reports abnormal gait (uses cane), Denies limited range of motion, Denies muscle cramps, Denies muscle weakness, Denies numbness, Denies radiating pain into limb, Denies stiffness and Denies tingling Neuro Reports abnormal gait (uses cane), Denies dizziness, Denies numbness and Denies tingling Endo Reports fatigue and Denies palpitations Physical Exam Vital Signs: Last Vital Signs Pulse 60 09/22/25 09:56 BP 110/62 09/22/25 09:56 BMI result Body Mass Index 23.3 Const General: cooperative, healthy appearing, comfortable and no acute distress Orientation/consciousness: patient oriented x3 Neck Neck: Yes normal visual inspection Resp Effort & Inspection: normal respiratory effort Auscultation: clear to auscultation bilaterally, no rales, no rhonchi and no wheezes Cardio Rate: regular rate Rhythm: regular rhythm Heart sounds: S1 normal heart sound present, S2 normal heart sound present, no gallops, no murmurs and no rubs Neuro General: patient oriented x3 Extrem General: Yes normal to inspection Psych Appearance: grossly normal Mental Status: mental status grossly normal Speech and movement: Normal speech and movement present Office Procedures EKG Details: Today, read by me, normal sinus rhythm, can not exclude prior anterior infarct, ST and T-wave abnormality lead 1 and aVL, rate 60, QTC 454 milliseconds 56368-Lzrtkaeortblcjudi, Complete Assessment & Plan Assessment & Plan (1) Status post transcatheter aortic valve replacement (TAVR) using bioprosthesis: Code(s): Z95.3 - Presence of xenogenic heart valve Category: Surgical Plan: History of aortic stenosis, severe. She underwent TAVR procedure 08/21/2023. Cardiac catheterization done 07/03/2023 had shown only minimal luminal irregularities in the LAD, otherwise normal. Her last echocardiogram done 08/13/2024 shows EF 60-65%, grade 2 diastolic dysfunction, bioprosthetic aortic valve functioning normally. Currently only reporting fatigue. No murmur noted on exam. Endocarditis prophylaxis reviewed with her. Continue aspirin and atorvastatin. Will update echo prior to her next visit. Cardiology follow-up 6 months, sooner if needed. (2) PVCs (premature ventricular contractions): Code(s): I49.3 - Ventricular premature depolarization Category: Medical Plan: History of PVCs. A Holter monitor was done 02/08/2024 for 3 days showed sinus rhythm with average heart rate 59, 52% heart rate less than 60, frequent PVCs, total burden 11%. She was put on low-dose metoprolol. A repeat Holter done 04/15/2024 showed sinus rhythm with average heart rate 57, 52% less than 60, frequent PVCs 15.5% of time. Unable to further titrate metoprolol due to low resting heart rate. Last echocardiogram shows normal EF which is reassuring. Will continue current management. Discussed reduction in caffeinated beverages, maintaining good hydration and nutrition, activity as tolerated. (3) Left bundle branch block: Code(s): I44.7 - Left bundle-branch block, unspecified Category: Medical Plan: Noted on EKGs. Not a new finding. (4) Ischemic stroke: Code(s): I63.9 - Cerebral infarction, unspecified Category: Medical Plan: History of ischemic stroke. No documented evidence of atrial fibrillation. She denies heart palpitations. Plan I discussed with the patient that her fatigue is likely due to aging, as her cardiac valve function is normal. We agreed on a follow-up in six months, with an earlier visit if new symptoms occur. Orders: Orders CA echo transthoracic complete 5 Months I44.7 - Left bundle-branch block, unspecified, Z95.3 - Presence of xenogenic heart valve Patient Instructions: - Continue current medication regimen using the pill organizer. - Monitor for any new symptoms and report them promptly. - Follow up in six months unless new symptoms develop. Patient was informed and verbally consented to the use of an ambient scribe for clinic note documentation during this visit. Visit time spent on chart review, interview, assessment, orders, documentation. Coding Level of Care Code Est Pt Level 4 (24212) Complex EM visit Add On G2211 Diagnoses Status post transcatheter aortic valve replacement (TAVR) using bioprosthesis Z95.3 PVCs (premature ventricular contractions) I49.3 Left bundle branch block I44.7 Ischemic stroke I63.9 CPT Codes EKG - CPT: 26225-Jikxjkqjugoqeyosp, Complete ([id number]) Time Spent (min) 28
[2025-09-22 09:56] VITALS: BP 110/62; PULSE 60; BMI 23.3
--- OUTSIDE RECORDS SUMMARY | 2025-09-22 11:11 | XMS_ITS | Patient Health Record ---
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, with unspecified presence of clinical manifestation (I70.203) Active confirmed Q7(A), Q8(2B), Q9(1B,2 C) Vital Signs Blood pressure diastolic 80 mm Hg 07/07/2025 Height 5 ft 3 in in 07/07/2025 Blood pressure systolic 122 mm Hg 07/07/2025 Weight 127 lbs 07/07/2025 BMI 22.49 kg/m2 07/07/2025 Procedures Procedure Date Ordered Date Performed Result Body Sit e 36227-GQJJQLC NAIL, 6 OR MORE 09/26/2024 N/A 62296-GCNP SKIN LESIONS, 2 TO 4 09/26/2024 N/A 47051-JGRDZWI NAIL, 6 OR MORE 12/26/2024 N/A 72448-DFHO SKIN LESIONS, 2 TO 4 12/26/2024 N/A 26756-PTMWURQ NAIL, 6 OR MORE 03/31/2025 N/A 66201-UYCF SKIN LESIONS, 2 TO 4 03/31/2025 N/A 95234-PWIAFKR NAIL, 6 OR MORE 07/07/2025 N/A 33313-VWVO SKIN LESIONS, 2 TO 4 07/07/2025 N/A Encounters Encounter Location Date Provider Diagnosis [address] [address] 09/26/2024 Harjeet Ambrose 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, with unspecified presence of clinical manifestation I70.203 ; Tinea unguium B35.1 ; Pain in right toe(s) M79.674 ; Pain in left toe(s) M79.675 and Tinea pedis of both feet B35.[address] [address] 12/26/2024 Harjeet Ambrose 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, with unspecified presence of clinical manifestation I70.203 ; Tinea unguium B35.1 ; Pain in right toe(s) M79.674 ; Pain in left toe(s) M79.675 and Tinea pedis of both feet B35.[address] [address] 03/31/2025 Harjeet Hallunier 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, with unspecified presence of clinical manifestation I70.203 ; Tinea unguium B35.1 ; Pain in right toe(s) M79.674 and Pain in left toe(s) M79.675 [facility] [address] [place] [address] 07/07/2025 Harjeet Hallunier 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, with unspecified presence of clinical manifestation I70.203 ; Tinea unguium B35.1 ; Pain in right toe(s) M79.674 and Pain in left toe(s) M79.675 Assessments Encounter Date Diagnosis (ICD Code) Assessment Notes Treatment Notes Treatment Clinical Notes Section Notes 09/26/2024 Tinea unguium (ICD-10 - B35.1) 09/26/2024 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, with unspecified presence of clinical manifestation (ICD-10 - I70.203) Q7(A), Q8(2B), Q9(1B,2C) 12/26/2024 Tinea unguium (ICD-10 - B35.1) 12/26/2024 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, with unspecified presence of clinical manifestation (ICD-10 - I70.203) Q7(A), Q8(2B), Q9(1B,2C) 03/31/2025 Tinea unguium (ICD-10 - B35.1) 03/31/2025 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, with unspecified presence of clinical manifestation (ICD-10 - I70.203) Q7(A), Q8(2B), Q9(1B,2C) 07/07/2025 Tinea unguium (ICD-10 - B35.1) 07/07/2025 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, with unspecified [...] Treatment Pending Test Test Name Order Date 35339-IGBGWFR NAIL, 6 OR MORE 06/20/2024 49883-UPJLUZM NAIL, 6 OR MORE 09/26/2024 20671-SKKAOII NAIL, 6 OR MORE 12/26/2024 49090-EEXYTDW NAIL, 6 OR MORE 03/31/2025 15167-UGMNGTO NAIL, 6 OR MORE 07/07/2025 43944-ULZX SKIN LESIONS, 2 TO 4 07/07/20 25 88368-MDVH SKIN LESIONS, 2 TO 4 03/31/20 25 38700-VSQI SKIN LESIONS, 2 TO 4 12/26/19 25 93249-EMMW SKIN LESIONS, 2 TO 4 09/26/20 24 34297-PEKY SKIN LESIONS, 2 TO 4 06/20/20 24 Next Appt Details Provider Name:Harjeet Ambrose , 10/20/2025 02:45:00 PM, [address], [place], [address], Insurance Providers Payer Name Payer Address Payer Phone Subscriber Number Group Number Insured Name Patient Relationship to Insured Coverage Start Date Coverage End Date [employer] Medicare Adv-[id number] [address] [address] [place] [address] [id number] Carissa Martin Self - patient is the insured Medical (General) History Medical History History ICD Code Cancer Cataracts covid-19 Depression Gall bladder problems Heart disease Stroke thyroid Measles Heart valve conditions/replacement Surgical History Surgery Date(Month/Year)
--- OUTSIDE RECORDS SUMMARY | 2025-09-22 11:11 | XMS_ITS | Patient Health Record ---
Author Organization [facility] Address [address] [place] [address] Care Team Providers Care Dietary Services Director Name Role Phone Thelma (RETIRED) Jax MCGRATH Primary Care Provide r Unavailable Fortino Cooney Unavailable [phone] Reason For Referral No Information Medications Medication SIG (Take, Route, Fr equency, Duration) Notes Start Date End Date Status Synthroid 88mg Activ e Zoloft 40mg Active Vitamin C Active Vitamin D Active Omeprazole 20mg 08/22/2013 11/19/2024 Ac tive Problems Problem Type SNOMED Code ICD Code Onset Dates Problem Status W/U Status Risk Notes Problem Heartburn (56022710) Heartburn (787.1) Active confirmed Problem History of polyp of colon (situation) (292898470) Personal history of colonic polyps (V12.72) Active confirmed Problem Screening for malignant neoplasm of colon (454367050) Special screening for malignant neoplasms, colon (V76.51) Active confirmed Problem Gastroesophageal reflux disease (746218945) GERD (gastroesopha geal reflux disease) (530.81) Active confirmed Plan Of Treatment Future Test Test Name Order Date UPPER GI ENDOSCOPY 11/18/2013 Insurance Providers Payer Name Payer Address Payer Phone Subscriber Number Group Number Insured Name Patient Relationship to Insured Coverage Start Date Coverage End Date [facility] [address] [address] [place] [address] [id number] THANG RODRIGUEZ Self - patient is the insured Medical (General) History Medical History History ICD Code Colonoscopy 08/2011 neg except for diver ticulosis colon polyps-Tubular adenomas removed in 2001--had a neg colonoscopy in 2005 Depression hypothyroidism uterine cancer GERD--UGI in 2009-small HH and reflux Denies [place],DM,CVA,Lung disease,renal dise ase Surgical History Surgery Date(Month/Year) MAGAN and XRT for uterine cancer > 20 yrs ago cholecystectomy
--- OUTSIDE RECORDS SUMMARY | 2025-09-22 11:11 | XMS_ITS | Patient Health Record ---
Author Organization [facility] Address [address] [place] [address] Care Team Providers Care [employer] Sales Manager Name Role Phone DR JULIENNE GARCIA Primary Care Provider Jo Ann Young Unavailable [phone] Reason For Referral No Information Medications Medication SIG (Take, Route, Fr equency, Duration) Notes Start Date End Date Status Fish Oil 1 ORAL daily; Duration: -3 [facility] [place]16/2012 Active Levoxyl 88MCG 1 ORAL DAILY; Duration: -3 [facility] [place] 2 Active Lotrisone cream 45 GM External twice maude ly; Duration: 5 [facility] [place] 01/22/2013 Active Omeprazole 40MG 1 ORAL daily; Duration: -3 [facility] [place] 012 Active Vitamin D3 1000 IU 1 ORAL daily; Duration: -3 [facility] [place] 12/21 Active Sertraline HCl 50 MG 1 tablet Orally Once a day Active Calcium 1 ORAL daily; Duration: -3 [facility] [place] 01/16/2012 Active Problems Problem Type SNOMED Code ICD Code Onset Dates Problem Status W/U Status Risk Notes Problem 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 Major Problem Hypothyroidism (64464321) Unspecified hypothyroidism (244.9) Active confirmed Major Problem Hyperlipidemia (83196238) Other and unspecified hyperlipidemia (272.4) Active confirmed Major Problem Obesity (099628332) Obesity, unspecified (278.00) Active confirmed Major Problem Depressive disorder (80535573) Depressive disorder, not elsewhere classified (311) Active confirmed Major Problem Menopausal symptom (82818724) Symptomatic menopausal or female climacteric states (627.2) Active confirmed Major Problem Backache (618669485) Unspecified backache (724.5) Active confirmed Major Problem Insomnia (447653219) Insomnia, unspecified (780.52) Active confirmed Major Problem Gynecological examination normal (091366626729103) Routine gynecological examination (V72.31) Active confirmed Problem Screening for malignant neoplasm of colon (256304875) Special screening for malignant neoplasms, colon (V76.51) Active confirmed Major Plan Of Treatment Pending Test Test Name Order Date MAMMOGRAM, SCREENING 02/15/2015 Insurance Providers Payer Name Payer Address Payer Phone Subscriber Number Group Number Insured Name Patient Relationship to Insured Coverage Start Date Coverage End Date [facility] MED[employer] [address] [address] [place] [address] [id number] THANG RODRIGUEZ Self - patient is the insured Medical (General) History Medical History History ICD Code Depressive disorder, not elsewhere class ified 311 Other and unspecified hyperlipidemia 272 .4 Kaposi's sarcoma of unspecified site 176 .9 Unspecified hypothyroidism 244.9 GERD CYSTORECTOCELE Surgical History Surgery Date(Month/Year) cholecystectomy MAGAN/BSO Hospitalization History Reason Date(Month/Year) SEE SURGICAL HX
== END 2025-09-22 10:29 | disposition home or self-care (01) ==
LOC: HO.HCS 09:48
PROVIDERS: PCP Internal Medicine; Visit Provider Nurse Practitioner Family
DX: Z95.3 Presence of xenogenic heart valve (principal); I49.3 Ventricular premature depolarization; I44.7 Left bundle-branch block, unspecified; I63.9 Cerebral infarction, unspecified
CPT/HCPCS: 93010; 99214; G2211

== ENCOUNTER → 2025-09-22 09:48 | Outpatient (BNVA) | payer MEDICARE, SELFPAY | PROVIDERS: PCP Internal Medicine; Visit Provider Nurse Practitioner Family | DX: I49.3 Ventricular premature depolarization (principal); I44.7 Left bundle-branch block, unspecified; Z95.3 Presence of xenogenic heart valve; I63.9 Cerebral infarction, unspecified | CPT/HCPCS: 93005; 99212 ==

== ENCOUNTER 2025-10-07 11:22 | Outpatient (AMB) | payer MEDICARE, SELFPAY ==
--- NOTE | 2025-10-07 11:29 | A.OFFPC_ITS ---
Vital Signs 10/07/25 11:33 Height 5 ft 1 in Weight 122 lb BMI 23.0 BP 110/66 Blood Pressure Location Rt brachial Position Sitting Pulse 61 Pulse Source Pulse Oximeter Pulse Oximetry (%) 95 Intake Visit Reasons: Annual PE-see comments Allergies No Known Allergies Allergy (Verified 09/22/25 10:00) Medication List - Last Reconciled 10/07/25 by Jae Arteaga MD aspirin (Adult Low Dose Aspirin) 81 mg PO DAILY 90 days atorvastatin 40 mg PO DAILY 90 days clonazepam (Klonopin) 0.5 mg PO BEDTIME clotrimazole-betamethasone 1-0.05 % 1 appl topical ONCE 30 days ketoconazole 2% 1 appl topical DAILY ketorolac 0.5% 0 drps ophthalmic (eye) levothyroxine (Synthroid) 137 mcg PO DAILY meclizine 12.5 mg PO BID 30 days metoprolol succinate ER 12.5 mg (1/2 x 25 mg) PO DAILY omeprazole 20 mg PO DAILY 90 days sertraline 100 mg PO DAILY 90 days Tobacco use date assessed: 04/22/25 Dental Screening Dental Screen Date: 04/22/25 HPI HPI Comments History of Present Illness Details History of Present Illness The patient is an 85-year-old female presenting for a physical exam appointment. Aortic Valve Stenosis: - The patient has a history of mildly se perico aortic valve stenosis, which causes a heart murmur and contributes to her tiredness. - This condition is associated with raegan ycardia and a left bundle branch block. - She is under the care of a cardiologis t and had a recent appointment a couple of weeks ago, with the next one scheduled for March. - At her last cardiology follow-up with the nurse practitioner, she was told everything with her heart was fine. Hypothyroidism: - The patient is taking levothyroxine 13 7 mcg for hypothyroidism. Anxiety and Vertigo: - The patient has chronic anxiety and is prescribed sertraline and clonazepam by Dr. Quevedo - She also experiences chronic vertigo, for which she takes meclizine as needed. Hyperlipidemia: - She is on atorvastatin for a lipid dis order. Chronic Kidney Disease: - The patient has a history of chronic k idney disease with regular GFR monitoring. - Her last lab work in June showed a G FR of 51. Gastroesophageal Reflux Disease: - Her GERD is stable with omeprazole 20 mg. History of Stroke: - The patient has a history of a stroke. Health Maintenance: - The patient no longer undergoes colono scopies. - Her pneumonia and tetanus vaccinations are up to date. - She has decided to proceed with a mamm ogram, as she has not had one in a long time. Medical History: - Mildly severe aortic valve stenosis - Hypothyroidism - Chronic anxiety - Chronic vertigo - Hyperlipidemia - Chronic kidney disease - GERD - History of stroke Social History: - The patient lives nearby with her husb and. - She is still driving and is independen t. - She drives her , who can no daphnie harlan drive, to his doctor's appointments. - She has two sons who live nearby and p rovide support. - She has a ydlnn-ddsj-hyo great-grandda ughter. Health Maintenance - The patient is no longer having colono scopies. - Pneumonia vaccination is up to date, l ast given in April of the previous year. - Tetanus vaccination is up to date, las t given in 2018. - Patient advised to get a senior-dose f leslie vaccine from a pharmacy. - Patient advised to get a COVID vaccine . - Patient agreed to a mammogram and will be given a printed order to schedule it at the [facility]. [facility] Medical History GERD (gastroesophageal reflux disease) Hypothyroidism PVCs (premature ventricular contractions) Left bundle branch block Closed fracture of metatarsal bone of right foot Right foot pain Heart murmur Bladder disorder Lipid disorder Dyspepsia Anxiety, generalized Depression, major, severe recurrence Other specified hypothyroidism Ischemic stroke History of stroke Surgical History Status post transcatheter aortic valve replacement (TAVR) using bioprosthesis Right-sided lacunar infarction Hx of cholecystectomy History of hysterectomy H/O: hysterectomy History of cholecystectomy Family History Mother No problems noted. Father No problems noted. Father No problems noted. Mother Stroke Brother No problems noted. Sister No problems noted. Sister No problems noted. Sister No problems noted. Son No problems noted. Son No problems noted. Social History Housing: House Alcohol intake: never Patient Tobacco Use Status: Former Tobacco user (quit over 50 years ago ) e-Cigarette/Vaping Use: Never Used Second Hand Smoke Exposure: No service: No Current occupational status: retired Cognitive needs: No Hearing needs: No Vision needs: Yes Questionnaire Thrive Questionnaire Date Thrive assessed: 04/22/25 I am a: Patient What is your living situation today?: I have a steady place to live Within the past 12 months, did the food you bought not last and you didn't have the money to get more?: Never true Within the past 12 months, did you worry whether your food would run out before you got money to buy more?: Never true Do you have trouble paying for medicines?: No Do you have trouble getting transportation to medical appointments?: No Do you have trouble paying your heating and electricity bill?: No Do you have trouble taking care of your child, family member or friend?: No Do you have trouble with day-to-day activities such as bathing, preparing meals, shopping, managing finances, etc.?: No Are you currently unemployed and looking for a job?: No Are you interested in more education?: No Please select the resources that you would like help with: None Currently or been in a relationship where the following occur: No concerns reported THRIVE Score: 0 ADELFO-7 AMB Questionnaire ADELFO-7 Date ADELFO - 7 assessed: 04/22/25 Source: Developed by Drs. Fortino Franklin, Elda Cotto, Gurdeep Jones and colleagues, with an educational david from [employer]. Review of Systems Narrative Review of Systems - General: Reports tiredness, which she attributes to her heart condition. - Neurological: Denies feeling lightheaded or dizzy. - Gastrointestinal: Denies constipation. - Musculoskeletal: Reports intermittent pedal edema left ankle, but denies current swelling. No fever no chills - Neurological: No headaches - Ear nose throat: No sore throat no hearing difficulty no ear pain - Gastrointestinal: No nausea vomiting or diarrhea Physical exam (Primary Care) Vital Signs: Last Vital Signs Pulse 61 10/07/25 11:33 BP 110/66 10/07/25 11:33 Pulse Ox 95 10/07/25 11:33 BMI result Body Mass Index 23.0 Tobacco/Smoking Status: Tobacco use Status Tobacco use date assessed 04/22/25 10/07/25 11:29 Patient Tobacco Use Status Former Tobacco user (quit 10/07/25 11:29 over 50 years ago ) e-Cigarette/Vaping Use Never Used 10/07/25 11:29 Thrive Assessment: Date of Thrive Assessment Date Thrive assessed 04/22/25 10/07/25 11:29 Currently or been in a relationship where the following occur: No concerns reported Narrative Physical Exam General: Cooperative, healthy appearing, comfortable, no acute distress Orientation: Patient oriented x3 Head: Normal to inspection Ears: Within normal limit visually Nose: Normal external nose present Face and sinus: Normal facial exam Eyes: Appearance normal, extraocular movement intact pupils reactive Neck: Normal visual inspection and supple Respiratory: Normal respiratory effort and able to speak in complete sentences. Clear to auscultation, no stridor Cardiovascular: S1 and S2 RRR, heart murmur present Breast exam Benign GI: Normal to inspection. Soft to palpation and nontender Skin: Turgor normal, no acute findings Neuro: Patient oriented x3, motor intact, Balance off with eyes closed Extremities: Normal to inspection . Coding Level of Care Code Est Pt Level 3 (20108) Est Pt Prev Care >65y(87045) Diagnoses Encounter for general adult medical examination with abnormal findings Z00.01 General unsteadiness R26.81 Anxiety, generalized F41.1 Severe episode of recurrent major depressive disorder, without psychotic features F33.2 Psychotic features: without psychotic features Aortic valve stenosis, moderate I35.0 Lipid disorder E78.9 Other specified hypothyroidism E03.8 Benign paroxysmal positional vertigo, unspecified laterality H81.10 Laterality: unspecified laterality Dyspepsia R10.13 Decreased GFR R94.4 Bladder disorder N32.9 History of stroke Z86.73 Assessment & Plan Assessment & Plan (1) Encounter for general adult medical examination with abnormal findings: Code(s): Z00.01 - Encounter for general adult medical examination with abnormal findings Category: Medical (2) General unsteadiness: Code(s): R26.81 - Unsteadiness on feet Category: Medical (3) Anxiety, generalized: Code(s): F41.1 - Generalized anxiety disorder Category: Medical (4) Depression, major, severe recurrence: Code(s): F33.2 - Major depressive disorder, recurrent severe without psychotic features Category: Medical Qualifiers: Psychotic features: without psychotic features Qualified Code(s): F33.2 - Major depressive disorder, recurrent severe without psychotic features (5) Aortic valve stenosis, moderate: Code(s): I35.0 - Nonrheumatic aortic (valve) stenosis Category: Medical (6) Lipid disorder: Code(s): E78.9 - Disorder of lipoprotein metabolism, unspecified Category: Medical (7) Other specified hypothyroidism: Code(s): E03.8 - Other specified hypothyroidism Category: Medical (8) Benign positional vertigo: Code(s): H81.10 - Benign paroxysmal vertigo, unspecified ear Category: Medical Qualifiers: Laterality: unspecified laterality Qualified Code(s): H81.10 - Benign paroxysmal vertigo, unspecified ear (9) Dyspepsia: Code(s): R10.13 - Epigastric pain Category: Medical (10) Decreased GFR: Code(s): R94.4 - Abnormal results of kidney function studies Category: Medical (11) Bladder disorder: Code(s): N32.9 - Bladder disorder, unspecified Category: Medical (12) History of stroke: Code(s): Z86.73 - Personal history of transient ischemic attack (TIA), and cerebral infarction without residual deficits Category: Medical Plan Patient Instructions - Continue taking your thyroid medicine as prescribed. - You need a senior-dose flu vaccine, which you can get from a pharmacy. - You also need a COVID vaccine. - There is an order for a blood test in your chart; please have this done in November or December. - You will be given a printed order for a mammogram, which you can use to call the [facility] and schedule an appointment. - Your next follow-up appointment will be in six months. Orders: Orders MM tomosynthesis screening BI Today Z12.31 - Encounter for screening mammogram for malignant neoplasm of breast
[2025-10-07 11:33] VITALS: BP 110/66; PULSE 61; O2SAT 95; BMI 23.0
--- OUTSIDE RECORDS SUMMARY | 2025-10-07 22:28 | XMS_ITS | Patient Health Record ---
Author Organization [facility] Address [address] [place] [address] Care Team Providers Care Customer Account Manager Name Role Phone Thelma (RETIRED) Jax MCGRATH Primary Care Provide r Unavailable Fortino Cooney Unavailable [phone] Reason For Referral No Information Medications Medication SIG (Take, Route, Fr equency, Duration) Notes Start Date End Date Status Synthroid 88mg Activ e Zoloft 40mg Active Vitamin C Active Vitamin D Active Omeprazole 20mg 08/22/2013 Ac tive Social History Social History Additional Details Category Social Info Options Details Miscellaneous: Marital status: Occupation: retired Section Notes: Nonsmoker; no sig alcohol Problems Problem Type SNOMED Code ICD Code Onset Dates Problem Status W/U Status Risk Notes Problem Heartburn (30624715) Heartburn (787.1) Active confirmed Problem History of polyp of colon (situation) (722917347) Personal history of colonic polyps (V12.72) Active confirmed Problem Screening for malignant neoplasm of colon (600269514) Special screening for malignant neoplasms, colon (V76.51) Active confirmed Problem Gastroesophageal reflux disease (836320240) GERD (gastroesopha geal reflux disease) (530.81) Active confirmed Plan Of Treatment Future Test Test Name Order Date UPPER GI ENDOSCOPY 11/18/2013 Insurance Providers Payer Name Payer Address Payer Phone Subscriber Number Group Number Insured Name Patient Relationship to Insured Coverage Start Date Coverage End Date [facility] [address] [address] [place] [address] [id number] THANG RODRIGUEZ Self - patient is the insured Medical (General) History Medical History History ICD Code Colonoscopy 08/2011 neg except for diver ticulosis colon polyps-Tubular adenomas removed in 2001--had a neg colonoscopy in 2005 Depression hypothyroidism uterine cancer GERD--UGI in 2008-small HH and reflux Denies IA,DM,CVA,Lung disease,renal dise ase Surgical History Surgery Date(Month/Year) MAGAN and XRT for uterine cancer > 20 yrs ago cholecystectomy
--- OUTSIDE RECORDS SUMMARY | 2025-10-07 22:28 | XMS_ITS | Patient Health Record ---
Author Organization [facility] Address [address] [place] [address] Care Team Providers Care [employer] Art Teacher Name Role Phone DR JULIENNE GARCIA Primary Care Provider Jo Ann Young Unavailable [phone] Reason For Referral No Information Medications Medication SIG (Take, Route, Fr equency, Duration) Notes Start Date End Date Status Fish Oil 1 ORAL daily; Duration: -3 [facility]- 01/16/2012 Active Levoxyl 88MCG 1 ORAL DAILY; Duration: -3 [facility] 2 Active Lotrisone cream 45 GM External twice maude ly; Duration: 5 [facility]- 01/22/2013 Active Omeprazole 40MG 1 ORAL daily; Duration: -3 [facility] 012 Active Vitamin D3 1000 IU 1 ORAL daily; Duration: -3 [facility] 12/21 Active Sertraline HCl 50 MG 1 tablet Orally Once a day Active Calcium 1 ORAL daily; Duration: -3 [facility] 01/16/2012 Active Problems Problem Type SNOMED Code ICD Code Onset Dates Problem Status W/U Status Risk Notes Problem 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 Major Problem Hypothyroidism (86847585) Unspecified hypothyroidism (244.9) Active confirmed Major Problem Hyperlipidemia (78739472) Other and unspecified hyperlipidemia (272.4) Active confirmed Major Problem Obesity (360953407) Obesity, unspecified (278.00) Active confirmed Major Problem Depressive disorder (89969166) Depressive disorder, not elsewhere classified (311) Active confirmed Major Problem Menopausal symptom (73368587) Symptomatic menopausal or female climacteric states (627.2) Active confirmed Major Problem Backache (218378530) Unspecified backache (724.5) Active confirmed Major Problem Insomnia (687963049) Insomnia, unspecified (780.52) Active confirmed Major Problem Gynecological examination normal (189125718634703) Routine gynecological examination (V72.31) Active confirmed Problem Screening for malignant neoplasm of colon (955430421) Special screening for malignant neoplasms, colon (V76.51) Active confirmed Major Plan Of Treatment Pending Test Test Name Order Date MAMMOGRAM, SCREENING 02/15/2015 Insurance Providers Payer Name Payer Address Payer Phone Subscriber Number Group Number Insured Name Patient Relationship to Insured Coverage Start Date Coverage End Date [facility] [employer] [address] [address] [place] [address] [id number] THANG RODRIGUEZ Self - patient is the insured Medical (General) History Medical History History ICD Code Depressive disorder, not elsewhere class ified 311 Other and unspecified hyperlipidemia 272 .4 Kaposi's sarcoma of unspecified site 176 .9 Unspecified hypothyroidism 244.9 GERD CYSTORECTOCELE Surgical History Surgery Date(Month/Year) cholecystectomy MAGAN/BSO Hospitalization History Reason Date(Month/Year) SEE SURGICAL HX
--- OUTSIDE RECORDS SUMMARY | 2025-10-07 22:28 | XMS_ITS | Patient Health Record ---
Author Organization [facility] Address [address] [place] [address] Care Team Providers Care Ticket Sales Supervisor Name Role Phone Chandler MCGRATH, [facility] Primary Care Provider Harjeet Bruno Unavailable [phone] Allergies No Known Allergies Reason For Referral [...] atherosclerosis of arteries of lower limbs (disorder) (67190863650378744 ) Atherosclerosis of mi'kmaq artery of both lower extremities, with unspecified presence of clinical manifestation (I70.203) Active confirmed Q7(A), Q8(2B), Q9(1B,2 C) Vital Signs Blood pressure diastolic 80 mm Hg 07/07/2025 Height 5 ft 3 in in 07/07/2025 Blood pressure systolic 122 mm Hg 07/07/2025 Weight 127 lbs 07/07/2025 BMI 22.49 kg/m2 07/07/2025 Procedures Procedure Date Ordered Date Performed Result Body Sit e 31575-QGJUNMY NAIL, 6 OR MORE 12/26/2024 N/A 54394-PPUX SKIN LESIONS, 2 TO 4 12/26/2024 N/A 31114-JTIFPWW NAIL, 6 OR MORE 03/31/2025 N/A 50381-HSSQ SKIN LESIONS, 2 TO 4 03/31/2025 N/A 40451-EVDJHSH NAIL, 6 OR MORE 07/07/2025 N/A 16052-BISQ SKIN LESIONS, 2 TO 4 07/07/2025 N/A Encounters Encounter Location Date Provider Diagnosis [address] [address] 12/26/2024 Harjeet Ambrose Atherosclerosis of mi'kmaq artery of both lower extremities, with unspecified presence of clinical manifestation I70.203 ; Tinea unguium B35.1 ; Pain in right toe(s) M79.674 ; Pain in left toe(s) M79.675 and Tinea pedis of both feet B35.[address] [address] 03/31/2025 Harjeet Hallunier Atherosclerosis of mi'kmaq artery of both lower extremities, with unspecified presence of clinical manifestation I70.203 ; Tinea unguium B35.1 ; Pain in right toe(s) M79.674 and Pain in left toe(s) M79.[address] [address] 07/07/2025 Harjeet Arnol Atherosclerosis of mi'kmaq artery of both lower extremities, with unspecified presence of clinical manifestation I70.203 ; Tinea unguium B35.1 ; Pain in right toe(s) M79.674 and Pain in left toe(s) M79.675 Assessments Encounter Date Diagnosis (ICD Code) Assessment Notes Treatment Notes Treatment Clinical Notes Section Notes 12/26/2024 Tinea unguium (ICD-10 - B35.1) 12/26/2024 Atherosclerosis of mi'kmaq artery of both lower extremities, with unspecified presence of clinical manifestation (ICD-10 - I70.203) Q7(A), Q8(2B), Q9(1B,2C) 03/31/2025 Tinea unguium (ICD-10 - B35.1) 03/31/2025 Atherosclerosis of mi'kmaq artery of both lower extremities, with unspecified presence of clinical manifestation (ICD-10 - I70.203) Q7(A), Q8(2B), Q9(1B,2C) 07/07/2025 Tinea unguium (ICD-10 - B35.1) 07/07/2025 Atherosclerosis of mi'kmaq artery of both lower extremities, with unspecified [...] Treatment Pending Test Test Name Order Date 75285-[id number] NAIL, 6 OR MORE 06/20/2024 47078-NROBWJB NAIL, 6 OR MORE 09/26/2024 57013-DSREJBJ NAIL, 6 OR MORE 12/26/2024 57075-EVRPZFX NAIL, 6 OR MORE 03/31/2025 40934-MTDUCCQ NAIL, 6 OR MORE 07/07/2025 50662-IMJO SKIN LESIONS, 2 TO 4 07/07/20 25 53536-VPCL SKIN LESIONS, 2 TO 4 03/31/20 25 82441-MUUL SKIN LESIONS, 2 TO 4 12/26/19 25 80771-TIRT SKIN LESIONS, 2 TO 4 09/26/20 24 65376-ZZZL SKIN LESIONS, 2 TO 4 06/20/20 24 Next Appt Details Provider Name:Harjeet Ambrose , 10/20/2025 02:45:00 PM, [address] [place], [address], Insurance Providers Payer Name Payer Address Payer Phone Subscriber Number Group Number Insured Name Patient Relationship to Insured Coverage Start Date Coverage End Date [employer] Medicare [id number] [address] [address] [place] [address] [id number] Carissa Martin Self - patient is the insured Medical (General) History Medical History History ICD Code Cancer Cataracts covid-19 Depression Gall bladder problems Heart disease Stroke thyroid Measles Heart valve conditions/replacement Surgical History Surgery Date(Month/Year)
== END 2025-10-07 11:57 | disposition home or self-care (01) ==
LOC: HO.HMCC 11:23
PROVIDERS: PCP Internal Medicine; Visit Provider Internal Medicine
DX: Z00.01 Encounter for general adult medical examination with abnormal findings (principal); F33.2 Major depressive disorder, recurrent severe without psychotic features; R26.81 Unsteadiness on feet; F41.1 Generalized anxiety disorder; I35.0 Nonrheumatic aortic (valve) stenosis; E78.9 Disorder of lipoprotein metabolism, unspecified; E03.8 Other specified hypothyroidism; R10.13 Epigastric pain; R94.4 Abnormal results of kidney function studies; N32.9 Bladder disorder, unspecified; Z86.73 Personal history of transient ischemic attack (TIA), and cerebral infarction without residual deficits; H81.10 Benign paroxysmal vertigo, unspecified ear

== ENCOUNTER → 2025-10-07 11:22 | Outpatient (BNVA) | payer MEDICARE, SELFPAY | PROVIDERS: PCP Internal Medicine; Visit Provider Internal Medicine | DX: Z00.01 Encounter for general adult medical examination with abnormal findings (principal); R26.81 Unsteadiness on feet; F41.1 Generalized anxiety disorder; F33.2 Major depressive disorder, recurrent severe without psychotic features; I35.0 Nonrheumatic aortic (valve) stenosis; E78.9 Disorder of lipoprotein metabolism, unspecified; E03.8 Other specified hypothyroidism; H81.10 Benign paroxysmal vertigo, unspecified ear; R10.13 Epigastric pain; R94.4 Abnormal results of kidney function studies; N32.9 Bladder disorder, unspecified; Z86.73 Personal history of transient ischemic attack (TIA), and cerebral infarction without residual deficits | CPT/HCPCS: 99397 ==